=== PATIENT | male | born 1980 | race Caucasian/White ===

== ENCOUNTER 2020-05-11 10:01 | Emergency (ER) | payer OTHER, SELFPAY ==
--- NOTE | ~2020-05-11 | XR_ITS ---
EXAMINATION: XR LUMBAR SPINE XR SACRUM/COCCYX CLINICAL INFORMATION: Pain status post fall COMPARISON: CT 10/24/2016 TECHNIQUE: 3 views of the lumbar spine. 3 views of the sacrum/coccyx. FINDINGS: Lumbar spine: No fracture or subluxation. Vertebral body height and alignment is maintained. Disc spaces are maintained. Tiny endplate osteophytes at L3-L4. The bowel gas pattern is unremarkable. Sacrum/coccyx: No fracture or cortical disruption. Appropriate alignment of the sacrum and coccyx. The sacroiliac joints are symmetric. The sacral arcs are maintained. XR/XR sacrum coccyx min 2V IMPRESSION: No acute fracture or malalignment involving the lumbar spine or sacrum/coccyx.
--- NOTE | ~2020-05-11 | XR_ITS ---
EXAMINATION: XR LUMBAR SPINE XR SACRUM/COCCYX CLINICAL INFORMATION: Pain status post fall COMPARISON: CT 10/24/2016 TECHNIQUE: 3 views of the lumbar spine. 3 views of the sacrum/coccyx. FINDINGS: Lumbar spine: No fracture or subluxation. Vertebral body height and alignment is maintained. Disc spaces are maintained. Tiny endplate osteophytes at L3-L4. The bowel gas pattern is unremarkable. Sacrum/coccyx: No fracture or cortical disruption. Appropriate alignment of the sacrum and coccyx. The sacroiliac joints are symmetric. The sacral arcs are maintained. XR/XR lumbar spine 2-3V IMPRESSION: No acute fracture or malalignment involving the lumbar spine or sacrum/coccyx.
[2020-05-11 10:26] VITALS: BP 134/79; PULSE 57; RESP 18; TEMP 36.9; O2SAT 98; BMI 29.1
--- NOTE | 2020-05-11 12:23 | ED.FALL ---
HPI - Fall General Chief Complaint: Fall <LOU Alvarez Last Filed: 05/11/20 13:48> Stated Complaint: fall - abd pain,back pain, <LOU Alvarez Last Filed: 05/11/20 13:48> Time Seen by Provider: 05/11/20 11:44 <LOU Alvarez Last Filed: 05/11/20 13:48> Source: patient <LOU Alvarez Last Filed: 05/11/20 13:48> Mode of arrival: ambulatory <LOU Alvarez Last Filed: 05/11/20 13:48> Limitations: no limitations <LOU Alvarez Last Filed: 05/11/20 13:48> History of Present Illness HPI Narrative: 39 y/o male presenting with low back pain, tailbone pain and right buttock pain after he fell off a step ladder onto concrete yesterday. He fell from 4 steps up on his buttocks, and then back onto his elbows and he hit his head on the cement. He did no lose consciousness. He is on not on blood thinners. He was ambulatory at the scene. He was sore last night so he took so Motrin and a Vicoden from his girlfriend because he was having trouble sleeping. He went into work today but was continuing to have pain so he came to the ED for evaluation. He denies headaches, numbness, tingling. <LOU Alvarez Last Filed: 05/11/20 13:48> MD complaint: fall <LOU Alvarez Last Filed: 05/11/20 13:48> Onset (ago): day(s) (1) <LOU Alvarez Last Filed: 05/11/20 13:48> Fall from: from height (distance) (4) <LOU Alvarez Last Filed: 05/11/20 13:48> Fall witnessed: yes, by bystander <LOU Alvarez Last Filed: 05/11/20 13:48> Place fall occurred: work <LOU Alvarez Last Filed: 05/11/20 13:48> Loss of consciousness: none <LOU Alvarez Last Filed: 05/11/20 13:48> Prolonged down time: no <LOU Alvarez Last Filed: 05/11/20 13:48> Symptoms prior to fall: none <LOU Alvarez Last Filed: 05/11/20 13:48> Context: tripped/slipped <LOU Alvarez Last Filed: 05/11/20 13:48> Location of injury: head and back <LOU Alvarez Last Filed: 05/11/20 13:48> Location of injury - extremities: right: elbow <LOU Alvarez Last Filed: 05/11/20 13:48> Severity: moderate <LOU Alvarez Last Filed: 05/11/20 13:48> Quality: aching <LOU Alvarez Last Filed: 05/11/20 13:48> Associated symptoms (after fall): denies <LOU Alvarez Last Filed: 05/11/20 13:48> Related Data Home Medications: Previous Rx's Medication Instructions Recorded cyclobenzaprine 10 mg PO TID PRN #15 tab 05/11/20 ibuprofen 600 mg PO Q8H PRN #20 tab 05/11/20 lidocaine [Lidoderm] 1 patch TOPICAL DAILY #15 ea 05/11/20 <LOU Alvarez Last Filed: 05/11/20 13:48> Allergies/Adverse Reactions: Allergies Allergy/AdvReac Type Severity Reaction Status Date / Time acetaminophen [From TYLENOL] Allergy Unknown STOMACH Unverified 05/11/20 10:25 ISSUES ibuprofen [From MOTRIN] Allergy Unknown STOMACH Unverified 05/11/20 10:25 ISSUES <LOU Alvarez Last Filed: 05/11/20 13:48> Review of Systems Review of Systems: Constitutional: No Fever, No Chills Cardiovascular: No Chest Pain Gastrointestinal: No Nausea, No Vomiting, No Diarrhea, No abdominal Pain Genitourinary: No Hematuria Musculoskeletal: + joint pain, + Myalgias Skin: No Skin Lesions, No rash Neuro: No Weakness, No Numbness, No Dizziness, No Headache Psych: No Anxiety/Panic, No Depression Heme/Lymph: No Bruising <LOU Alvarez - Last Filed: 05/11/20 13:48> [facility] Past Medical History Attestation statement: The following information was validated with the patient. <LOU Alvarez - Last Filed: 05/11/20 13:48> Social History Social History: Social History Alcohol intake: never Smoking Status: Never smoker Use of substances other than those prescribed or required for medical reasons: Yes Substance Use Type: Marijuana Substance Use Frequency: Occasionally Last Used Substance: Unknown Advance Directives: No Advance Directives Information Provided: No <LOU Alvarez - Last Filed: 05/11/20 13:48> Physical Exam Vital Signs: Vital Signs: Last Vital Signs Temp 98.4 F 05/11/20 10:26 Pulse 57 05/11/20 10:26 Resp 18 05/11/20 10:26 BP 134/79 05/11/20 10:26 Pulse Ox 98 05/11/20 10:26 Body Mass Index 29.1 Appearance: Alert. Oriented X3. No acute distress. HEENT: normal inspection CVS: Normal heart rate and rhythm. Pulses normal. Respiratory: No respiratory distress. Skin: Skin warm and dry. Normal skin color. Normal skin turgor. No rashes. Back: sacral tenderness with lumbar spinal tenderness, right low lumbar soft tissue tenderness. no erythema, no ecchymosis. full flexion of spine with some pain. Extremities: atraumatic, no swelling. full ROM of bilateral elbows, no point tenderness. Neuro: Oriented X 3. No motor deficit. No sensory deficit. Ambulates with steady gait. <LOU Alvarez - Last Filed: 05/11/20 13:48> Vital Signs: Last Vital Signs Temp 98.4 F 05/11/20 10:26 Pulse 57 05/11/20 10:26 Resp 18 05/11/20 10:26 BP 134/79 05/11/20 10:26 Pulse Ox 98 05/11/20 10:26 Body Mass Index 29.1 <Tommie Mehta MD - Last Filed: 05/26/20 07:21> Course Course Course Narrative: 39 y/o male presenting with low back pain after a fall from a step ladder yesterday. Exam showing some soft tissue tenderness and sacral tenderness. No neuro deficits. Will get XR's to assess for fracutres. <LOU Alvarez - Last Filed: 05/11/20 13:48> I have reviewed the chart <Tommie Mehta MD - Last Filed: 05/26/20 07:21> Reevaluation(s) Reevaluation #1: XR's are negative. Will treat with soft tissue contusions and strain with NSAID, muscle relaxer and Lidoderm. Patient agrees with plan and is stable for discharge. <LOU Alvarez - Last Filed: 05/11/20 13:48> Critical Care Time Critical Care Time Critical Care Time: No <LOU Alvarez - Last Filed: 05/11/20 13:48> Discharge Plan Discharge Clinical Impression: Contusion, Low back strain <LOU Alvarez Last Filed: 05/11/20 13:48> Patient Disposition: Home, Self-Care <LOU Alvarez - Last Filed: 05/11/20 13:48> Instructions: Low Back Strain (ED), Acute Low Back Pain (ED), Lower Back Exercises (ED) <LOU Alvarez - Last Filed: 05/11/20 13:48> Additional Instructions: Your x-rays today are negative. Your pain is most likely due to soft tissue and muscular injury. No bending, lifting or twisting. Use ice several times per day for 20 minutes at a time for the next 48 hours and then change to heat. Take medications as prescribed to help with pain and discomfort. Follow up with your Primary Care Doctor this week. If your pain worsens, if you develop new numbness, tingling, weakness, loss of function or incontinence call 911 or come back to the ER right away for evaluation. <LOU Alvarez - Last Filed: 05/11/20 13:48> Prescriptions: New cyclobenzaprine 10 mg tablet 10 mg PO TID PRN (Reason: muscle spasm) Qty: 15 RF: 0 ibuprofen 600 mg tablet 600 mg PO Q8H PRN (Reason: pain) Qty: 20 RF: 0 lidocaine [Lidoderm] 5 % adhesive patch,medicated 1 patch topical DAILY Qty: 15 RF: 0 <LOU Alvarez - Last Filed: 05/11/20 13:48> Stand Alone Forms: Work/School Release <LOU Alvarez - Last Filed: 05/11/20 13:48> Interventions: ED Discharge Assessment Last Done: 05/11/20 14:03 <LOU Alvarez - Last Filed: 05/11/20 13:48> Discharge Date/Time: 05/11/20 14:04 <LOU Alvarez - Last Filed: 05/11/20 13:48>
[2020-05-11] MEDS: Lidocaine 4 % Patch ADH..PATCH 2 PATCH TRANSDERMA (12:31)
[2020-05-11] MEDS: HYDROcodone Bit/Acetam 5/325 TABLET 1 TAB PO (12:31)
== END 2020-05-11 14:04 | disposition home or self-care (01) ==
PROVIDERS: Emergency Provider Emergency Medicine
DX: S39.012A Strain of muscle, fascia and tendon of lower back, initial encounter (principal); S30.0XXA Contusion of lower back and pelvis, initial encounter; W11.XXXA Fall on and from ladder, initial encounter; F12.90 Cannabis use, unspecified, uncomplicated; Y93.9 Activity, unspecified; Y92.017 Garden or yard in single-family (private) house as the place of occurrence of the external cause; Y99.9 Unspecified external cause status
CPT/HCPCS: 72100; 72220; 99283; 99284

== ENCOUNTER 2021-01-10 12:20 | Emergency (ER) | payer OTHER, SELFPAY ==
--- NOTE | 2021-01-10 | ECG_ITS ---
Test Reason : bradycardic Blood Pressure : / mmHG Vent. Rate : 049 BPM Atrial Rate : 049 BPM P-R Int : 152 ms QRS Dur : 098 ms QT Int : 454 ms P-R-T Axes : 043 078 042 degrees QTc Int : 410 ms Sinus bradycardia Cannot rule out Anterior infarct , age undetermined Abnormal ECG No previous ECGs available Referred By: Jose Murphy Electronically Signed By:Eren Peralta
--- NOTE | ~2021-01-10 | CT_ITS ---
CT ANGIOGRAM NECK WITH CONTRAST CT ANGIOGRAM BRAIN WITH CONTRAST CLINICAL INFORMATION: Severe headache. Bradycardia. Hypertensive. COMPARISON: Head CT performed earlier the same day. TECHNIQUE: Test bolus sequences followed by intravenous administration 70 mL of Omnipaque 350. Helical imaging was performed in the axial plane from the thoracic inlet to the skull vertex. Delayed postcontrast imaging of the head was also performed. The data was processed at the ct scan technologist workstation for generation of MIP sequences. Stenoses are assessed in accordance with NASCET criteria unless otherwise indicated. This CT examination was performed using dose optimization techniques as appropriate, variously including the following: *Automated exposure control *Adjustment of mA and/or kV according to patient size (this includes techniques or standardized protocols for targeted exams where dose is matched to indication/reason for exam; i.e. extremities or head) *Use of iterative reconstruction technique FINDINGS: BRAIN: [There is no intracranial hemorrhage, hydrocephalus, extra-axial surface collection, midline shift, or other herniation pattern. Poole to white matter differentiation is diffusely maintained without evidence of an evolved acute territorial infarct. The basilar cisterns are preserved. No significant soft tissue abnormality. No acute osseous abnormality. The paranasal sinuses and the mastoid air cells are well aerated.] CERVICAL SOFT TISSUES AND LUNG APICES: [Unremarkable. ] NECK CTA: [There is a classic 3 vessel configuration of the aortic arch. Proximal arch vessels are non-stenotic. The vertebral arteries are codominant. No significant ostial stenosis is visualized on either side. Both vertebral arteries are widely patent throughout their extracranial cervical course. Both common and internal carotid arteries are normal in course and caliber.] BRAIN CTA: [There is normal opacification of major intracranial arteries. No focal flow-limiting stenosis nor discrete proximal large artery occlusion. No aneurysm. Timing of the contrast bolus allows assessment of the major dural venous sinuses, which all opacify normally] CT/CT angio head neck stroke IMPRESSION: No acute intracranial findings. No significant arterial stenoses and no acute arterial occlusions within the head or neck. Covering provider paged with these findings at 1:01 PM on 01/10/2021.
--- NOTE | ~2021-01-10 | CT_ITS ---
EXAMINATION: CT HEAD WITHOUT CONTRAST (STROKE PROTOCOL) CLINICAL INFORMATION: Stroke protocol. Severe headache and drowsy. COMPARISON: No prior studies available for comparison. TECHNIQUE: Contiguous axial imaging was performed from the skull base to vertex without intravenous administration of contrast. This CT examination was performed using dose optimization techniques as appropriate, variously including the following: *Automated exposure control *Adjustment of mA and/or kV according to patient size (this includes techniques or standardized protocols for targeted exams where dose is matched to indication/reason for exam; i.e. extremities or head) *Use of iterative reconstruction technique DLP: 760 mGy-cm FINDINGS: There is no evidence of acute intracranial hemorrhage or territorial infarction. No abnormal mass-effect or midline shift is seen. Po[place] to white matter differentiation is well preserved. No extra-axial fluid collections are identified. The ventricles are normal in size. There is no abnormal attenuation within the brain parenchyma. The osseous structures and soft tissues are normal. There is trace fluid at the left mastoid tip. There is mucoperiosteal thickening in the right maxillary and in the bilateral ethmoid and sphenoid sinuses. The nasal septum is significantly deviated to the left and there is a left-sided bony nasal septal spur. CT/CT head for stroke IMPRESSION: 1. There are no acute bleeds or infarcts. No masses are demonstrated. 2. This critical result was discussed with Jose Murphy by telephone on 01/10/2021 at 12:38 PM and it was ascertained that the content and urgency of the report was understood at the time of direct communication.
[2021-01-10 12:30] VITALS: BP 213/98; PULSE 35; O2SAT 97
--- NOTE | 2021-01-10 12:30 | ED_ITS ---
HPI - Headache General Chief Complaint: Headache Stated Complaint: CRUZ,LOW HR,HIGH BP PER EMS Time Seen by Provider: 01/10/21 12:25 Source: patient and EMS Mode of arrival: EMS History of Present Illness HPI Narrative: 40 yo presented via ALS c/o severe CRUZ after bowel movement,found bradycardic and hypertensive,denies fever,chills ,vomiting.has similar CRUZ 2 days ago speedy durbin MD elicited complaint: headache Onset (ago): hour(s) (1) Onset description: suddenly Severity: moderate Quality & Timing: aching and throbbing Exacerbating factors: none Relieving factors: nothing Context: other (during bowel movement) Related Data Previous Rx's Medication Instructions Recorded cyclobenzaprine 10 mg tablet 10 mg PO TID PRN #15 tab 05/11/20 ibuprofen 600 mg tablet 600 mg PO Q8H PRN #20 tab 05/11/20 lidocaine 5 % topical patch 1 patch TOPICAL DAILY #15 ea 05/11/20 (Lidoderm) oxycodone 5 mg capsule 5 mg PO Q8H PRN #12 cap 01/10/21 Allergies Allergy/AdvReac Type Severity Reaction Status Date / Time acetaminophen [From TYLENOL] Allergy Unknown STOMACH Unverified 05/11/20 10:25 ISSUES ibuprofen [From MOTRIN] Allergy Unknown STOMACH Unverified 05/11/20 10:25 ISSUES Review of Systems Review of Systems: Yes all other systems are reviewed and are negative ENT: Denies vertigo Cardiovascular: Cardiovascular: Reports no additional cardiovascular complaints Respiratory: Respiratory: Reports no additional respiratory complaints Gastrointestinal: Gastrointestinal: Reports no additional gastrointestinal complaints Musculoskeletal: Musculoskeletal: Denies abnormal gait Neurologic: Denies abnormal gait, Denies behavioral changes, Reports burning sensations, Denies confusion, Denies vertigo and Denies seizure-like activity Psychiatric: Psychiatric: Denies behavioral changes and Denies confusion PMFSH Social History Social History Alcohol intake: never Smoked in Last 30 Days: No Use of substances other than those prescribed or required for medical reasons: Yes Substance Use Type: Marijuana Advance Directives: No Advance Directives Information Provided: Yes Physical Exam Vital Signs: Vital Signs: Last Vital Signs Temp 98.6 F 01/10/21 15:45 Pulse 55 01/10/21 15:45 Resp 18 01/10/21 15:45 BP 105/53 L 01/10/21 15:45 Pulse Ox 96 01/10/21 15:45 BMI result Body Mass Index 29.9 Const: General: cooperative and anxious; No confusion Orientat ion/consciousness: oriented to person, oriented to place, oriented to time and No confusion HENMT: Head: Yes normal to inspection Face and sinus: Yes normal facial exam Neck: Neck: Yes normal visual inspection, Yes full ROM and Yes no meningeal signs Chest: Chest palpation & inspection: normal inspection of the chest Resp: Effort & Inspection: normal respiratory effort Auscultation: clear to auscultation bilaterally Cardio: Jugular venous distension: no JVD Rate: regular rate Rhythm: regular rhythm GI: Inspection: Yes normal to inspection Palpation (GI): Soft to palpation, nontender and no guarding Skin: General skin exam: no rashes or lesions noted and elasticity normal Rashes: no rashes Neuro: General: oriented to person, oriented to place, oriented to time, no meningeal signs, no focal motor deficits, CN's II-XI intact bilaterally and No confusion Course Reevaluation(s) Reevaluation #1: Pt feels much better at this time,CRUZ gone, ct angio head and neck negative, WBC normal Reevaluation #2: feel much better sitting up asyntomatic,no CRUZ,wants to go home MDM - Headache Lab Data Attestation: I reviewed the patient's lab results. Result diagrams: 01/10/21 13:01 01/10/21 13:24 Labs: Lab Results 01/10/21 01/10/21 01/10/21 Range/Units 13:01 13:01 13:24 WBC 8.7 (4.8-10.8) X10*3/uL RBC 5.15 (4.60-5.80) X10*6/uL Hgb 15.6 (14.0-18.0) g/dl Hct 44.8 (42.0-52.0) % MCV 87.0 (80.0-98.0) fL MCH 30.3 (27.0-33.0) pg MCHC 34.8 (31.0-36.0) g/dl RDW 13.7 (11.0-16.0) % Plt Count 211 (160-400) X10*3/uL MPV 10.9 (9.4-12.4) fL Immature Gran % (Auto) 0.2 (0.0-0.4) % Neut % (Auto) 75.9 H (45-73) % Lymph % (Auto) 16.2 L (20-40) % [place] % (Auto) 5.6 (2-11) % Eos % (Auto) 1.6 (0-4) % Baso % (Auto) 0.5 (0-2) % Lymph # (Auto) 1.4 (1.2-4.9) X10*3/uL [place] # (Auto) 0.5 (0.1-1.2) X10*3/uL Eos # (Auto) 0.1 (0.0-0.4) X10*3/uL Baso # (Auto) 0.0 (0.0-0.2) X10*3/uL Abs Immat Gran (auto) 0.02 (0.00-0.03) X10*3/uL Absolute Neuts (auto) 6.6 (2.0-8.3) x10*3/uL Absolute Nucleated RBC 0.000 (0.0-0.012) X10*3/uL Nucleated RBC % (auto) 0.0 (0.0-0.2) /100WBC PT (9.9-13.0) SEC INR (0.9-1.1) APTT (24.1-38.0) SEC Sodium 141 (135-145) mmol/L Potassium 4.1 (3.3-5.1) mmol/L Chloride 110 H (96-108) mmol/L Carbon Dioxide 22 (22-29) mmol/L Anion Gap 13 (12-20) BUN 18 H (9-16) mg/dL Creatinine 0.90 (0.5-1.4) mg/dL Estim Creat Clear Calc 136.1 Estimated GFR > 60 Random Glucose 140 H (60-115) mg/dL Calcium 9.0 (8.4-10.2) mg/dL Total Bilirubin 0.5 (0.0-1.0) mg/dL AST 21 (5-37) U/L ALT 42 H (0-40) U/L Alkaline Phosphatase 60 (39-117) U/L Total Protein 6.4 L (6.5-8.0) g/dL Albumin 4.2 (3.5-5.0) g/dL COVID-19 ([facility]) Negative (Negative) COVID-19 Clin Com See Note 01/10/21 Range/Units 14:11 WBC (4.8-10.8) X10*3/uL RBC (4.60-5.80) X10*6/uL Hgb (14.0-18.0) g/dl Hct (42.0-52.0) % MCV (80.0-98.0) fL MCH (27.0-33.0) pg MCHC (31.0-36.0) g/dl RDW (11.0-16.0) % Plt Count (160-400) X10*3/uL MPV (9.4-12.4) fL Immature Gran % (Auto) (0.0-0.4) % Neut % (Auto) (45-73) % Lymph % (Auto) (20-40) % [place] % (Auto) (2-11) % Eos % (Auto) (0-4) % Baso % (Auto) (0-2) % Lymph # (Auto) (1.2-4.9) X10*3/uL [place] # (Auto) (0.1-1.2) X10*3/uL Eos # (Auto) (0.0-0.4) X10*3/uL Baso # (Auto) (0.0-0.2) X10*3/uL Abs Immat Gran (auto) (0.00-0.03) X10*3/uL Absolute Neuts (auto) (2.0-8.3) x10*3/uL Absolute Nucleated RBC (0.0-0.012) X10*3/uL Nucleated RBC % (auto) (0.0-0.2) /100WBC PT 11.1 (9.9-13.0) SEC INR 1.0 (0.9-1.1) APTT 38.9 H (24.1-38.0) SEC Sodium (135-145) mmol/L Potassium (3.3-5.1) mmol/L Chloride (96-108) mmol/L Carbon Dioxide (22-29) mmol/L Anion Gap (12-20) BUN (9-16) mg/dL Creatinine (0.5-1.4) mg/dL Estim Creat Clear Calc Estimated GFR Random Glucose (60-115) mg/dL Calcium (8.4-10.2) mg/dL Total Bilirubin (0.0-1.0) mg/dL AST (5-37) U/L ALT (0-40) U/L Alkaline Phosphatase (39-117) U/L Total Protein (6.5-8.0) g/dL Albumin (3.5-5.0) g/dL COVID-19 ([facility]) (Negative) COVID-19 Clin Com Imaging Data ct ang head/neck: Radiologist's impression: [There is no intracranial hemorrhage, hydrocephalus, extra-axial surface collection, midline shift, or other herniation pattern. Poole to white matter differentiation is diffusely maintained without evidence of an evolved acute territorial infarct. The basilar cisterns are preserved. No significant soft tissue abnormality. No acute osseous abnormality. The paranasal sinuses and the mastoid air cells are well aerated.] CERVICAL SOFT TISSUES AND LUNG APICES: [Unremarkable. ] NECK CTA: [There is a classic 3 vessel configuration of the aortic arch. Proximal arch vessels are non-stenotic. The vertebral arteries are codominant. No significant ostial stenosis is visualized on either side. Both vertebral arteries are widely patent throughout their extracranial cervical course. Both common and internal carotid arteries are normal in course and caliber.] BRAIN CTA: [There is normal opacification of major intracranial arteries. No focal flow-limiting stenosis nor discrete proximal large artery occlusion. No aneurysm. Timing of the contrast bolus allows assessment of the major dural venous sinuses, which all opacify normally] CT/CT angio head? neck stroke IMPRESSION: No acute intracranial findings. No significant arterial stenoses and no acute arterial occlusions within the head or neck. ? Covering provider paged with these findings at 1:01 PM on 01/10/2021. Discharge Plan Discharge Clinical Impression: Headache Patient Disposition: Home, Self-Care Instructions: Acute Headache (ED) Additional Instructions: Follow up with Primary Care Doctor Tomorrow also call neurologist for follow up [phone] Prescriptions: New oxycodone 5 mg capsule 5 mg PO Q8H PRN (Reason: pain) Qty: 12 RF: 0 No Action cyclobenzaprine 10 mg tablet 10 mg PO TID PRN (Reason: muscle spasm) Qty: 15 RF: 0 ibuprofen 600 mg tablet 600 mg PO Q8H PRN (Reason: pain) Qty: 20 RF: 0 lidocaine [Lidoderm] 5 % adhesive patch,medicated 1 patch topical DAILY Qty: 15 RF: 0 Referrals: Jessica Wright MD [Physician] - 2 days Stand Alone Forms: Work/School Release
[2021-01-10] MEDS: iohexoL 350 MG/ML 100 ML INFUS..BTL IV (12:46)
[2021-01-10 12:53] VITALS: BP 169/59; PULSE 45; RESP 18; TEMP 36.9; O2SAT 98; BMI 29.9
[2021-01-10] MEDS: HYDROmorphone HCl 0.5 MG/0.5 ML SYRINGE IVPUSH (12:59)
[2021-01-10 13:08] LABS: MANUAL DIFF FLAG NO
[2021-01-10 13:11] LABS: Basophils Percent Auto 0.5 % (0-2); Eosinophils Absolute Auto 0.1 X10*3/uL (0.0-0.4); Eosinophils Percent Auto 1.6 % (0-4); Hematocrit 44.8 % (42.0-52.0); Hemoglobin 15.6 g/dl (14.0-18.0); Imm Gran Abs Auto 0.02 X10*3/uL (0.00-0.03); Imm Gran Pct Auto 0.2 % (0.0-0.4); Lymphocytes Absolute Auto 1.4 X10*3/uL (1.2-4.9); Lymphocytes Percent Auto 16.2 % (20-40); Mean Corpuscular HGB Conc 34.8 g/dl (31.0-36.0); Mean Corpuscular Hemoglobin 30.3 pg (27.0-33.0); Mean Platelet Volume 10.9 fL (9.4-12.4); Monocytes Absolute Auto 0.5 X10*3/uL (0.1-1.2); Monocytes Percent Auto 5.6 % (2-11); Neutrophils Absolute Auto 6.6 x10*3/uL (2.0-8.3); Neutrophils Percent Auto 75.9 % (45-73); Platelet Count 211 X10*3/uL (160-400); Red Blood Count 5.15 X10*6/uL (4.60-5.80); Red Cell Distribution Width 13.7 % (11.0-16.0); White Blood Count 8.7 X10*3/uL (4.8-10.8)
[2021-01-10 13:24] LABS: COVID-19 Test Negative (Negative)
[2021-01-10 13:46] LABS: Alanine Aminotransferase 42 U/L (0-40); Albumin Level 4.2 g/dL (3.5-5.0); Alkaline Phosphatase 60 U/L (39-117); Anion Gap 13 (12-20); Aspartate Amino Transferase 21 U/L (5-37); Bilirubin Total 0.5 mg/dL (0.0-1.0); Blood Urea Nitrogen 18 mg/dL (9-16); Carbon Dioxide 22 mmol/L (22-29); Chloride 110 mmol/L (96-108); Creatinine Clr Calc Pharmacy 136.1; Estimated Glomerular Filt Rate > 60; Glucose Random 140 mg/dL (60-115); Potassium 4.1 mmol/L (3.3-5.1); Sodium 141 mmol/L (135-145); Total Protein 6.4 g/dL (6.5-8.0)
[2021-01-10] MEDS: Ketorolac Tromethamine 15 MG/ML VIAL IVPUSH (13:46)
[2021-01-10] MEDS: Metoclopramide HCl 10 MG/2 ML VIAL IVPUSH (13:47)
[2021-01-10] MEDS: diphenhydrAMINE HCL 50 MG/ML VIAL 25 MG IVPUSH (13:48)
[2021-01-10 14:09] VITALS: BP 159/76; PULSE 47; RESP 18; TEMP 36.6; O2SAT 97
[2021-01-10 14:27] LABS: Prothrombin Time 11.1 SEC (9.9-13.0)
[2021-01-10 14:30] LABS: Partial Thromboplastin Time 38.9 SEC (24.1-38.0)
[2021-01-10 15:45] VITALS: BP 105/53; PULSE 55; RESP 18; TEMP 37; O2SAT 96
== END 2021-01-10 16:31 | disposition home or self-care (01) ==
PROVIDERS: Emergency Provider Emergency Medicine
DX: R51.9 Headache, unspecified (principal); Z20.822 Contact with and (suspected) exposure to COVID-19
CPT/HCPCS: 36415; 70450; 70496; 70498; 80053; 85025; 85610; 85730; 87635; 93005; 96374; 96375; 99285; J1170; J1200; J1885; J2765; Q9967

== ENCOUNTER 2022-02-24 07:43 | Emergency (ER) | payer OTHER, SELFPAY ==
[2022-02-24 07:56] VITALS: BP 144/89; PULSE 64; RESP 16; TEMP 36.1; O2SAT 97; BMI 29.0
--- NOTE | 2022-02-24 08:17 | ED_ITS ---
HPI - Skin/Abscess/Foreign Bdy General Chief complaint: Skin/Abscess/Foreign Body Stated complaint: rash from dog Time Seen by Provider: 02/24/22 08:17 Source: patient Mode of arrival: ambulatory Limitations: no limitations History of Present Illness HPI narrative: 41-year-old male presents to the ER for evaluation of an itchy, red, raised rash on his extremities that started yesterday. He has a new puppy that was diagnosed with main Gen started on treatment yesterday. His was also seen in the ER yesterday for a similar rash. He reports the rash is itchy and burning. No burrowing. No surrounding erythema or warmth. No drainage. No facial swelling or respiratory complaints. No new lotions, creams, perfumes. complaint: rash Onset (ago): day(s) (1) Tetanus up to date: unsure Location: LUE, RUE, LLE and RLE Severity: moderate Quality: pruritic Pain Consistency: constant Relieving factors: other ( Benadryl cream) Exacerbating factors: none Context: other ( new puppy with mange) Associated symptoms: denies other symptoms Treatments prior to arrival: OTC topical medication Related Data Previous Rx's Medication Instructions Recorded cyclobenzaprine 10 mg tablet 10 mg PO TID PRN muscle spasm #15 05/11/20 tabs ibuprofen 600 mg tablet 600 mg PO Q8H PRN pain #20 tabs 05/11/20 lidocaine 5 % topical patch 1 patch topical DAILY #15 ea 05/11/20 (Lidoderm) oxycodone 5 mg capsule 5 mg PO Q8H PRN pain #12 caps 01/10/21 permethrin 5 % topical cream 1 appl topical Q14D 2 doses #60 02/24/22 (Elimite) grams prednisone 20 mg tablet 40 mg PO DAILY #10 tabs 02/24/22 Allergies Allergy/AdvReac Type Severity Reaction Status Date / Time acetaminophen [From TYLENOL] Allergy Unknown STOMACH Unverified 05/11/20 10:25 ISSUES ibuprofen [From MOTRIN] Allergy Unknown STOMACH Unverified 05/11/20 10:25 ISSUES Review of Systems Review of Systems: Yes all other systems are reviewed and are negative PMFSH Social History Social History Alcohol intake: never Smoked in Last 30 Days: No Use of substances other than those prescribed or required for medical reasons: Yes Substance Use Type: Marijuana Advance Directives: No Physical Exam Vital Signs: Vital Signs: Last Vital Signs Temp 96.9 F 02/24/22 07:56 Pulse 68 02/24/22 08:40 Resp 16 02/24/22 08:40 BP 117/77 02/24/22 08:40 Pulse Ox 96 02/24/22 08:40 O2 Del Method 02/24/22 08:40 BMI result Body Mass Index 29.0 Appearance: Alert. Oriented X3. No acute distress. HEENT: normal inspection. facial swelling CVS: Normal heart rate and rhythm. Pulses normal. Respiratory: No respiratory distress. Lungs are clear throughout Skin: Skin warm and dry. Normal skin color. Normal skin turgor. Extremities: there is a scattered, erythematous, maculopapular rash with excoriations on all 4 extremities, scattered throughout. No pustules or bulla. No surrounding erythema or warmth. Neuro: Oriented X 3. No motor deficit. No sensory deficit. Course Course Course Narrative: 41-year-old male presents to the ER for evaluation of an itchy, red, pruritic rash that started last night after having a new puppy at home with mange. This can be transmitted will to humans. Treated with permethrin. got similar treatment yesterday. All in and have been washed in hot water. Dog has been isolated to 1 room in the home and started on treatment from the instructor ground services. . Will start permethrin, Benadryl, prednisone given itchiness and distribution. We also discussed xhie-jwm-[id number] remedies that may help with itching as well. He will follow-up with his PCP. Stable for discharge home. Medical Decision Making Differential Diagnosis Differential Diagnoses: The differential diagnosis associated with the presentation includes scabies, mange, allergic dermatitis, contact dermatitis Independent Historian Clinical information obtained from an independent historian. History obtained from or confirmed by: Spouse External Record Review External record reviewed: Outpatient record and Prior outpatient labs Prescription Management I considered prescription management with: Antibiotic not indicated No evidence of bacterial infection Critical Care Time Critical Care Time Critical Care Time: No Discharge Plan Discharge Clinical Impression: Sarcoptic mange Patient Disposition: Home, Self-Care Instructions: Scabies (ED) Additional Instructions: Use the prescribed cream tonight before bed, leave on for 8-12 hours for washing off. Start the prescribed steroids today. Recommend Benadryl either topically or orally as needed for itching and rash. Follow-up with your doctor. Prescriptions: New permethrin [Elimite] 5 % cream 1 appl topical Q14D Qty: 60 0RF Rx Instructions: apply second treatment 14 days after first treatment if live lice remain prednisone 20 mg tablet 40 mg PO DAILY Qty: 10 0RF No Action cyclobenzaprine 10 mg tablet 10 mg PO TID PRN (Reason: muscle spasm) Qty: 15 0RF ibuprofen 600 mg tablet 600 mg PO Q8H PRN (Reason: pain) Qty: 20 0RF lidocaine [Lidoderm] 5 % adhesive patch,medicated 1 patch topical DAILY Qty: 15 0RF Rx Instructions: leave on most painful area for up to 12 hrs oxycodone 5 mg capsule 5 mg PO Q8H PRN (Reason: pain) Qty: 12 0RF Stand Alone Forms: Work/School Release Interventions: ED Discharge Assessment Last Done: 02/24/22 08:45 Discharge Date/Time: 02/24/22 08:45
--- NOTE | 2022-02-24 08:18 | PC.NURSE ---
pt reports getting a new puppy x2 wks ago. his was seen here yesterday for full body rash, this morning he notice a similar rash to ble and r forearm. denies urrutia/fever/chills. no other members of his household with rash.
[2022-02-24 08:40] VITALS: BP 117/77; PULSE 68; RESP 16; O2SAT 96
== END 2022-02-24 08:45 | disposition home or self-care (01) ==
PROVIDERS: Emergency Provider Emergency Medicine Emergency Medical Services
DX: B86 Scabies (principal); Z79.899 Other long term (current) drug therapy
CPT/HCPCS: 99283; 99284

== ENCOUNTER 2022-04-06 08:09 | Emergency (ER) | payer OTHER, SELFPAY ==
[2022-04-06 08:13] VITALS: BP 147/81; PULSE 70; RESP 16; TEMP 35.8; O2SAT 97; BMI 29.9
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
== END 2022-04-06 09:35 | disposition home or self-care (01) ==
PROVIDERS: Emergency Provider Emergency Medicine
DX: S80.02XA Contusion of left knee, initial encounter (principal); V43.52XA Car driver injured in collision with other type car in traffic accident, initial encounter; Y93.89 Activity, other specified; Y92.414 Local residential or business street as the place of occurrence of the external cause; Y99.9 Unspecified external cause status
CPT/HCPCS: 99282

== ENCOUNTER 2023-08-23 09:59 | Outpatient (REF) | payer OTHER, SELFPAY ==
--- NOTE | ~2023-08-23 | XR_ITS ---
EXAMINATION: XR ANKLE, LEFT CLINICAL INFORMATION: Pain in left ankle COMPARISON: None available. TECHNIQUE: AP, lateral, and mortise views of the left ankle. FINDINGS: No fracture. Alignment is anatomic. No erosions. Joint spaces are maintained. Soft tissues are normal. XR/XR ankle LT min 3V IMPRESSION: Normal left ankle.
== END 2023-08-23 10:00 | disposition home or self-care (01) ==
LOC: HO.HOSX 09:59
PROVIDERS: Visit Provider Physician Assistant
DX: M25.572 Pain in left ankle and joints of left foot (principal)
CPT/HCPCS: 73610

== ENCOUNTER 2023-08-23 14:45 | Outpatient (AMB) | payer OTHER, SELFPAY ==
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
[2023-08-23 15:08] VITALS: BMI 31.0
== END 2023-08-23 16:18 | disposition home or self-care (01) ==
PROVIDERS: Visit Provider Physician Assistant
DX: S93.402A Sprain of unspecified ligament of left ankle, initial encounter (principal); M19.072 Primary osteoarthritis, left ankle and foot
CPT/HCPCS: 99204

== ENCOUNTER 2023-11-21 19:12 | Outpatient (REF) | payer OTHER, SELFPAY ==
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
== END 2023-11-21 19:13 | disposition home or self-care (01) ==
LOC: HO.MRI 19:12
PROVIDERS: PCP Internal Medicine; Visit Provider Physician Assistant
DX: M19.072 Primary osteoarthritis, left ankle and foot (principal); S93.402A Sprain of unspecified ligament of left ankle, initial encounter
CPT/HCPCS: 73721

== ENCOUNTER 2024-01-01 12:08 | Outpatient (AMB) | payer OTHER, SELFPAY ==
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
--- OUTSIDE RECORDS SUMMARY | 2024-01-01 12:10 | XMS_ITS | Continuity of Care Document ---
Author Organization [facility] Address [address] [place] [address]- Care Team Providers Care Travel Accommodations Rater Name Role Phone Rob ACOSTA, Nahid Castanon Primary Care Physician Encounter [facility] Date(s): 03/20/23 - 04/19/[address] [address] Allergies, Adverse Reactions, Alerts Substance Reaction Severity Status aspirin 1 Active Tylenol 2 Constipation Active 1bothers his stomach 2bothers his stomach Immunizations Given and Recorded Vaccine Date Status Refusal Reason influenza virus vaccine, inactivated 12/02/19 Give n influenza virus vaccine, inactivated 02/11/19 Give n influenza virus vaccine, inactivated 11/23/15 Give n influenza virus vaccine, inactivated 03/03/14 Give n tetanus/diphtheria/pertussis, acel(Tdap) 08/21/18 Given tetanus-diphtheria toxoids (Td) 10/21/16 Recorded Medications 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 Refills 0, Maintenance, wear daily as needed to avoid pressure to ulnar nerve, 06/27/22 10:40:00 EDT, Supply Start Date: 06/27/22 Status: Ordered bilateral neutral position wrist splints bilateral neutral position wrist splints, See Instructions, # 1 each, Refills 0, Tot. Refills 0, Maintenance, wear daily at night, 06/27/22 10:38:00 EDT, Supply, 183, cm, 06/27/22 10:11:00 EDT, Height Start Date: 06/27/22 Status: Ordered cloNIDine 0.1 mg oral tablet 1, tablet, By Mouth, 4 times a day, # 120 tablet, Refills 0, Maintenance, 02/19/23 14:33:00 EST, Route to Pharmacy Electronically, [id number], 183, cm, 01/23/23 10:48:00 EST, Height, 103.4, kg, 12/19/22 11:22:00 EST, Dry Weight Start Date: 02/19/23 Status: Ordered clotrimazole 1% topical cream 1 application, Topically, 2 times a day, # 60 Gm, 0 Refills, Maintenance, 05/18/20 8:31:00 EDT, Cream, [facility]/pharmacy #[id number], 1 application Topically 2 times a day, 183, cm, 12/02/19 9:13:00 EDT, Height Start Date: 05/18/20 Status: Ordered diclofenac 1% topical gel 1 application, Topically, 4 times a day, PRN for pain, # 100 Gm, 2 Refills, Maintenance, 02/17/22 18:10:00 EST, Gel, [facility]/pharmacy #[id number], 183, cm, 02/01/21 10:10:00 EST, Height Start Date: 02/17/22 Stop Date: 05/18/22 Status: Ordered fluticasone 50 mcg/inh nasal spray See Instructions, USE 1 SPRAY IN EACH NOSTRIL TWICE A DAY, # 48 mL, 1 Refills, Maintenance, 01/24/23 8:14:00 EST, [id number], 90, USE 1 SPRAY IN EACH NOSTRIL TWICE A DAY, 183, cm, 01/23/23 10:48:00 EST, Height, 103.4, kg, 12/19/22 11:22:00 EST, D... Start Date: 01/24/23 Status: Ordered Freestyle Lite Lancets See Instructions, # 100 each, Refills 5, Tot. Refills 5, Maintenance, For Type 2 Diabetes, check fasting sugars daily, 03/31/14 10:03:28, Compound Start Date: 03/31/14 Stop Date: 09/27/14 Status: Ordered Freestyle Lite Monitor See Instructions, # 1 each, Maintenance, use as directed for Type 2 Diabetes Mellitus, 03/31/14 10:03:21, Compound Start Date: 03/31/14 Stop Date: 04/30/14 Status: Ordered Freestyle Lite Test Strips See Instructions, # 100 each, Refills 5, Tot. Refills 5, Maintenance, for T2 Diabetes, check fasting sugars daily, 04/17/23 17:56:00 EDT, Compound, 183, cm, 01/23/23 10:48:00 EST, Height, 103.4, kg, 12/19/22 11:22:00 EST, Dry Weight Start Date: 04/17/23 Stop Date: 10/14/23 Status: Ordered gabapentin 300 mg oral capsule 600 mg, 2, capsule, By Mouth, 3 times a day, # 180 capsule, Refills 5, Tot. Refills 5, Maintenance,04/07/23 10:10:00 EST, Route to Pharmacy Electronically, [facility]/pharmacy #[id number], Partial fill upon patient request if the prescription is for a schedule II... Start Date: 04/07/23 Stop Date: 10/04/23 Status: Ordered ibuprofen 800 mg oral tablet 800 mg, 1, tablet, By Mouth, 3 times a day, PRN, # 270 tablet, Refills 1, Tot. Refills 1, Maintenance, Pain , Moderate, 12/19/22 11:49:00 EST, Route to Pharmacy Electronically, [facility]/pharmacy #[id number], Partial fill upon patient request if the prescription... Start Date: 12/19/22 Status: Ordered montelukast 10 mg oral tablet 10 mg, 1, tablet, By Mouth, Daily, # 30 tablet, Refills 3, Tot. Refills 3, Maintenance, 06/27/22 10:37:00 EDT, Route to Pharmacy Electronically, [facility]/pharmacy #[id number], Partial fill upon patient request if the prescription is for a schedule II opioid drug... Start Date: 06/27/22 Status: Ordered Neutral position wrist splints, medium, bilateral Neutral position wrist splints, medium, bilateral, See Instructions, # 1 each, Refills 0, Tot. Refills 0, Maintenance, Wear overnight daily, 03/09/20 16:02:00 EST, Supply Start Date: 03/09/20 Status: Ordered rOPINIRole 0.25 mg oral tablet 1 tablet, By Mouth, 3 times a day, # 90 tablet, 0 Refills, Maintenance, 02/19/23 14:33:00 EST, [id number], 183, cm, 01/23/23 10:48:00 EST, Height, 103.4, kg, 12/19/22 11:22:00 EST, Dry Weight Start Date: 02/19/23 Status: Ordered Splint See Instructions, # 1 each, Maintenance, soft left wrist splint for Dx: wrist tendonitis, 12/01/14 8:41:15, Compound Start Date: 12/01/14 Status: Ordered Suboxone 8 mg-2 mg sublingual film 1 film, Sublingual, 2 times a day, dissolve under the tongue, # 14 film, 0 Refills, Maintenance, 04/17/23 17:54:00 EDT, Film, [facility]/pharmacy #[id number], Partial fill upon patient request if the prescriptionis for a schedule II opioid drug., 1 film Sublingua... Start Date: 04/17/23 Stop Date: 04/24/23 Status: Ordered SUMAtriptan 25 mg oral tablet See Instructions, TAKE 1 TABLET BY MOUTH ONCE AT ONSET OF HEADACHE. MAY REPEAT IN 2 HOURS, # 12 tablet, 1 Refills, Maintenance, 02/17/22 18:10:00 EST, [facility]/pharmacy #[id number], 183, cm, 02/01/21 10:10:00 EST, Height Start Date: 02/17/22 Status: Ordered traZODone 50 mg oral tablet 1, tablet, By Mouth, Daily at bedtime, # 30 tablet, Refills 0, Maintenance, 02/19/23 14:33:00 EST, Route to Pharmacy Electronically, [id number], 183, cm, 01/23/23 10:48:00 EST, Height, 103.4, kg, 12/19/22 11:22:00 EST, Dry Weight Start Date: 02/19/23 Status: Ordered Ventolin HFA 108 mcg/inh inhalation aerosol with adapter 1 puffs, Inhalation, 4 times a day, PRN NEEDED FOR WHEEZE, # 18 each, 1 Refills, Maintenance, 04/17/23 17:53:00 EDT, [id number], 183, cm, 01/23/23 10:48:00 EST, Height, 103.4, kg, 12/19/22 11:22:00 EST, Dry Weight Start Date: 04/17/23 Status: Ordered Wellbutrin XL 150 mg/24 hours oral tablet, extended release 1 tablet = 150 mg, By Mouth, Every 24 hours, # 30 tablet, 1 Refills, Maintenance, 12/05/22 12:03:00EDT, ER Tablet, [facility]/pharmacy #[id number], Partial fill upon patient request if the prescription is for a schedule II opioid drug., 183, cm, 12/05/22 11:16:00... Start Date: 12/05/22 Status: Ordered Problem List Condition Confirmation Course Effective Dates Status Health St atus Informant Back pain Confirmed Active Carpal tunnel syndrome, bilateral Confirmed Active Somnolence Confirmed Active Limitation due to disability 1 Confirmed Active Migraine Confirmed Active Obesity Confirmed Active Opioid use disorder Confirmed Active Severe major depression, single episode, without psychotic features Confirmed Active Type 2 diabetes mellitus Confirmed Active Vitamin D deficiency Confirmed Active 1initial [place] Back Pain Scale: 22 on 05/21/14; initial [place]: 16 pm 05/21/14 Social History Social History Type Response Smoking Status Former smoker; Tobac co user in household: No entered on: 03/31/14 Sex Patient Care team information Care Team Personnel Name: Rob ACOSTA, Nahid Castanon Position: [facility] Physician - Primary Care Member Role: PCP Address: Address: [address] [place] [id number]- Care Team Related Persons Name: SADI GILBERT Address: [address] [address]
--- OUTSIDE RECORDS SUMMARY | 2024-01-01 12:10 | XMS_ITS | Continuity of Care Document ---
Author Organization [facility] Address [address] [place] [address]- Care Team Providers Care High School Business Teacher Name Role Phone Nahid Rivas MD Primary Care Physician [place] [facility] [place] 11/07[place] - 12/07/[address] [address]- Allergies, Adverse Reactions, Alerts Substance Reaction Severity [...] EDT, Height Start Date: 06/27/22 Status: Ordered clotrimazole 1% topical cream 1 application, Topically, 2 times a day, # 60 Gm, 0 Refills, Maintenance, 05/18/20 8:31:00 EDT, Cream, [facility]/pharmacy #[id number], 1 application Topically 2 times a day, 183, cm, 12/02/19 9:13:00 EDT, Height Start Date: 05/18/20 Status: Ordered diclofenac 1% topical gel 1 application, Topically, 4 times a day, PRN for pain, # 100 Gm, 2 Refills, Maintenance, 02/17/22 18:10:00 EST, Gel, [facility]/pharmacy #[id number], 183, cm, 02/01/21 10:10:00 EST, Height Start Date: 02/17/22 Stop Date: 05/18/22 Status: Ordered Flonase 50 mcg/inh nasal spray 1 sprays, Nares, Both, 2 times a day, # 16 Gm, 5 Refills, Maintenance, 02/17/22 18:10:00 EST, [place], [facility]/pharmacy #[id number], Partial fill upon patient request if the prescription is for a schedule II opioid drug., 1 sprays Nares, Both 2 times a day, 183,... Start Date: 02/17/22 Status: Ordered Freestyle Lite Lancets See Instructions, [...] for T2 Diabetes, check fasting sugars daily, 03/31/14 10:03:15, Compound Start Date: 03/31/14 Stop Date: 09/27/14 Status: Ordered ibuprofen 800 mg oral tablet 800 mg, 1, tablet, By Mouth, 3 times a day, PRN, # 270 tablet, Refills 1, Tot. Refills 1, Maintenance, Pain , Moderate, 10/01/21 8:32:00 EDT, Route to Pharmacy Electronically, [facility]/pharmacy #[id number], Partial fill upon patient request if the prescription i... Start Date: 10/01/21 Status: Ordered montelukast 10 mg oral tablet 10 mg, 1, tablet, By Mouth, Daily, # 30 tablet, Refills 3, Tot. Refills 3, Maintenance, 06/27/22 10:37:00 EDT, Route to Pharmacy Electronically, [facility]/pharmacy #[id number], Partial fill upon patient request if the prescription is for a schedule II opioid drug... Start Date: 06/27/22 Status: Ordered Neutral position wrist splints, medium, bilateral Neutral position wrist splints, medium, bilateral, See Instructions, # 1 each, Refills 0, Tot. Refills 0, Maintenance, Wear overnight daily, 03/09/20 16:02:00 EST, Supply Start Date: 03/09/20 Status: Ordered ondansetron 4 mg oral tablet 1 tablet = 4 mg, By Mouth, Every 8 hours, for 3 days, # 9 tablet, 0 Refills, Acute 12/08/22 12:04:00 EDT, 12/05/22 12:04:00 EDT, Tablet, [facility]/pharmacy #207, Partial fill upon patient request if the prescription is for a schedule II opioid drug., 183,... Start Date: 12/05/22 Stop Date: 12/08/22 Status: Ordered Splint See Instructions, # 1 each, Maintenance, soft left wrist splint for Dx: wrist tendonitis, 12/01/14 8:41:15, Compound Start Date: 12/01/14 Status: Ordered SUMAtriptan 25 mg oral tablet See Instructions, TAKE 1 TABLET BY MOUTH ONCE AT ONSET OF HEADACHE. MAY REPEAT IN 2 HOURS, # 12 tablet, 1 Refills, Maintenance, 02/17/22 18:10:00 EST, [facility]/pharmacy #[id number], 183, cm, 02/01/21 10:10:00 EST, Height Start Date: 02/17/22 Status: Ordered tramadol 200 mg oral tablet, extended release See Instructions, 1-2 tablet By Mouth Daily, use 2nd tablet sparingly, # 45 tablet, 5 Refills, Maintenance, 07/12/22 12:59:00 EDT, ER Tablet, [facility]/pharmacy #[id number], Partial fill upon patient request if the prescription is for a schedule II opioid drug.,... Start Date: 07/12/22 Status: Ordered Wellbutrin XL 150 mg/24 hours oral tablet, extended release 1 tablet = 150 mg, By Mouth, Every 24 hours, # 30 tablet, 1 Refills, Maintenance, 12/05/22 12:03:00EDT, ER Tablet, [facility]/pharmacy #[id number], Partial fill upon patient request if the prescription is for a schedule II opioid drug., 183, cm, 12/05/22 11:16:00... Start Date: 12/05/22 Status: Ordered Problem List Condition Confirmation Course Effective Dates Status Health St at[facility] Informant Back pain Confirmed Active Carpal tunnel syndrome, bilateral Confirmed Active Somnolence Confirmed Active Limitation due to disability 1 Confirmed Active Migraine Confirmed Active Obese class I Confirmed Active Obesity Confirmed Active Opioid use disorder Confirmed Active Severe major depression, single episode, without psychotic features Confirmed Active Type 2 diabetes mellitus Confirmed Active Vitamin D deficiency Confirmed Active 1initial [place] Back Pain Scale: 22 on 05/21/14; initial [place]: 16 pm 05/21/14 Social History Social History Type Response Smoking Status Former smoker; Tobac co user in household: No entered on: 03/31/14 Sex Patient Care team information Care Team Personnel Name: Rob ACOSTA, Nahid Castanon Position: S Physician - Primary Care Member Role: PCP Address: Address: [address] [place] [address]- Care Team Related Persons Name: SADI GILBERT Address: [address] [address]
--- OUTSIDE RECORDS SUMMARY | 2024-01-01 12:10 | XMS_ITS | Continuity of Care Document ---
Author Organization [facility] Address [address] [place] [address]- Care Team Providers Care Chief Credit Officer Name Role Phone Nahid Rivas MD Primary Care Physician [phone] Encounter [facility] Date(s): 07/14/22 - 08/13/[address] [address]- Allergies, Adverse Reactions, Alerts Substance Reaction Severity [...] 0 Refills, Maintenance, 05/18/20 8:31:00 EDT, Cream, [facility]/pharmacy #[id number], 1 application Topically 2 times a day, 183, cm, 12/02/19 9:13:00 EDT, Height Start Date: 05/18/20 Status: Ordered diclofenac 1% topical gel 1 application, Topically, 4 times a day, PRN for pain, # 100 Gm, 2 Refills, Maintenance, 02/17/22 18:10:00 EST, Gel, [facility]/pharmacy #[id number], 183, cm, 02/01/21 10:10:00 EST, Height Start Date: 02/17/22 Stop Date: 05/18/22 Status: Ordered Flonase 50 mcg/inh nasal spray 1 sprays, Nares, Both, 2 times a day, # 16 Gm, 5 Refills, Maintenance, 02/17/22 18:10:00 EST, [place], [facility]/pharmacy #[id number], Partial fill upon patient request [...] 10/01/21 8:32:00 EDT, Route to Pharmacy Electronically, [facility]/pharmacy #[id number], Partial fill upon patient request if the prescription i... Start Date: 10/01/21 Status: Ordered montelukast 10 mg oral tablet 10 mg, 1, tablet, By Mouth, Daily, # 30 tablet, Refills 3, Tot. Refills 3, Maintenance, 06/27/22 10:37:00 EDT, Route to Pharmacy Electronically, [facility]/pharmacy #[id number], Partial fill upon patient request if the prescription is for a schedule II opioid drug... Start Date: 06/27/22 Status: Ordered Neutral position wrist splints, medium, bilateral Neutral position wrist splints, medium, bilateral, See Instructions, # 1 each, Refills 0, Tot. Refills 0, Maintenance, Wear overnight daily, 03/09/20 16:02:00 EST, Supply Start Date: 03/09/20 Status: Ordered Splint See Instructions, # 1 each, Maintenance, soft left wrist splint for Dx: wrist tendonitis, 12/01/14 8:41:15, Compound Start Date: 12/01/14 Status: Ordered SUMAtriptan 25 mg oral tablet See Instructions, TAKE 1 TABLET BY MOUTH ONCE AT ONSET OF HEADACHE. MAY REPEAT IN 2 HOURS, # 12 tablet, 1 Refills, Maintenance, 02/17/22 18:10:00 EST, [id number], 183, cm, 02/01/21 10:10:00 EST, Height Start Date: 02/17/22 Status: Ordered tramadol 200 mg oral tablet, extended release See Instructions, 1-2 tablet By Mouth Daily, use 2nd tablet sparingly, # 45 tablet, 5 Refills, Maintenance, 07/12/22 12:59:00 EDT, ER Tablet, [facility]/pharmacy #[id number], Partial fill upon patient request if the prescription is for a schedule II opioid drug.,... Start Date: 07/12/22 Status: Ordered Problem List Condition Confirmation Course Effective Dates Status Health St at[facility] Informant Back pain Confirmed Active Carpal tunnel syndrome, bilateral Confirmed Active Somnolence Confirmed Active Limitation due to disability 1 Confirmed Active Migraine Confirmed Active Obese class I Confirmed Active Obesity Confirmed Active Type 2 diabetes mellitus Confirmed Active Vitamin D deficiency Confirmed Active 1initial [place] Back Pain Scale: 22 on 05/21/14; initial [place]: 16 pm 05/21/14 Social History Social History Type Response Smoking Status Former smoker; Tobac co user in household: No entered on: 03/31/14 Sex Patient Care team information Care Team Personnel Name: Rob ACOSTA, Nahid Castanon Position: [facility] Physician - Primary Care Member Role: PCP Address: Address: [address] [place], [place] [id number]- Care Team Related Persons Name: SADI GILBERT Address: [address] [address]
--- OUTSIDE RECORDS SUMMARY | 2024-01-01 12:10 | XMS_ITS | Continuity of Care Document ---
Author Organization [facility] Address [address] [place] [id number]- Care Team Providers Care Flying Squad Worker Name Role Phone Nahid Rivas MD Primary Care Physician [phone] Encounter [facility] Date(s): 09/14/22 - 10/14/22 [facility] [address] [place] [id number] Attending Physician: Admtr, [id number] Admitting Physician: Admtr, [id number] Referring Physician: Admtr, [id number] Allergies, Adverse Reactions, Alerts Substance Reaction Severity [...] 0 Refills, Maintenance, 05/18/20 8:31:00 EDT, Cream, [facility]/pharmacy #207, 1 application Topically 2 times a day, 183, cm, 12/02/19 9:13:00 EDT, Height Start Date: 05/18/20 Status: Ordered diclofenac 1% topical gel 1 application, Topically, 4 times a day, PRN for pain, # 100 Gm, 2 Refills, Maintenance, 02/17/22 18:10:00 EST, Gel, [facility]/pharmacy #207, 183, cm, 02/01/21 10:10:00 EST, Height Start Date: 02/17/22 Stop Date: 05/18/22 Status: Ordered Flonase 50 mcg/inh nasal spray 1 sprays, Nares, Both, 2 times a day, # 16 Gm, 5 Refills, Maintenance, 02/17/22 18:10:00 EST, [place], [facility]/pharmacy #207, Partial fill upon patient request if [...] 10/01/21 8:32:00 EDT, Route to Pharmacy Electronically, [facility]/pharmacy #[id number], Partial fill upon patient request if the prescription i... Start Date: 10/01/21 Status: Ordered montelukast 10 mg oral tablet 10 mg, 1, tablet, By Mouth, Daily, # 30 tablet, Refills 3, Tot. Refills 3, Maintenance, 06/27/22 10:37:00 EDT, Route to Pharmacy Electronically, [id number], Partial fill upon patient request if [...] Refills, Maintenance, 07/12/22 12:59:00 EDT, ER Tablet, [id number], Partial fill upon patient request if the prescription is for a schedule II opioid drug.,... Start Date: 07/12/22 Status: Ordered Problem List Condition Confirmation Course Effective Dates Status [facility] at[facility] Informant Back pain Confirmed Active Carpal tunnel syndrome, bilateral Confirmed Active Somnolence Confirmed Active Limitation due to disability 1 Confirmed Active Migraine Confirmed Active Obese class I Confirmed Active Obesity Confirmed Active Type 2 diabetes mellitus Confirmed Active Vitamin D deficiency Confirmed Active 1initial [place] Back Pain Scale: 22 on 05/21/14; initial [place]: 16 pm 05/21/14 Social History Social History Type Response Smoking Status Former smoker; Tobac co user in household: No entered on: 03/31/14 Sex Patient Care team information Care Team Personnel Name: Nahid Rivas MD Position: S Physician - Primary Care Member Role: PCP Address: Address: [address] [place] [address]- Care Team Related Persons Name: SADI GILBERT Address: home [address] [place] [address]
--- OUTSIDE RECORDS SUMMARY | 2024-01-01 12:10 | XMS_ITS | Continuity of Care Document ---
Author Organization [facility] Address [address] [place] [address]- Care Team Providers Care Cleaner Assistant Name Role Phone Nahid Rivas MD Primary Care Physician [phone] Encounter [facility] Date(s): 09/02/19 - 10/02/[address] [address]- [facility] Allergies, Adverse Reactions, Alerts Substance Reaction Severity Status aspirin 1 Active Tylenol 2 Constipation Active 1bothers his stomach 2bothers his stomach Immunizations Given and Recorded Vaccine Date Status Refusal Reason influenza virus vaccine, inactivated 02/11/19 Give n influenza virus vaccine, inactivated 11/23/15 Give n influenza virus vaccine, inactivated 03/03/14 Give n tetanus/diphtheria/pertussis, acel(Tdap) 08/21/18 Given Medications AutoCPAP 8-20 cm H2O with compliance data followed with a heated humidifier AutoCPAP 8-20 cm H2O with compliance data followed with a heated humidifier, See Instructions, # 1 each, Refills 12, Tot. 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 Start Date: 01/25/18 Status: Ordered clindamycin 1% topical gel 1 application, Topically, 2 times a day, # 30 Gm, 1 Refills, Maintenance, 09/23/19 8:53:00 EDT, Gel, [id number], 1 application Topically 2 times a day, 183, cm, 09/23/19 8:40:00 EDT, Height Start Date: 09/23/19 Status: Ordered diclofenac 1% topical gel 1 application, Topically, 4 times a day, PRN for pain, # 100 Gm, 2 Refills, Maintenance, 09/23/19 8:52:00 EDT, Gel, [facility], 183, cm, 09/23/19 8:40:00 EDT, Height Start Date: 09/23/19 Stop Date: 12/22/19 Status: Ordered Freestyle Lite Lancets See Instructions, [...] Date: 03/31/14 Stop Date: 09/27/14 Status: Ordered Splint See Instructions, # 1 each, Maintenance, soft left wrist splint for Dx: wrist tendonitis, 12/01/14 8:41:15, Compound Start Date: 12/01/14 Status: Ordered tramadol 200 mg oral tablet, extended release 1-2 tablets, By Mouth, Daily, PRN Pain , Moderate, for 30 days, Dx: chronic back pain; massPat checked, # 45 tablet, 2 Refills, Hard Stop 12/02/19 12:28:00 EDT, 09/03/19 12:28:00 EDT, ER Tablet, [facility], 183, cm, 02/11/19 8:37:00 EST, Height Start Date: 09/03/19 Stop Date: 12/02/19 Status: Ordered tramadol 200 mg oral tablet, extended release 1-2 tablets, By Mouth, Daily, PRN Pain , Moderate, Dx: chronic back pain; massPat checked, # 45 tablet, 2 Refills, Maintenance, 12/02/19 12:28:00 EDT, ER Tablet, [facility], 183, cm, 08/17/208:40:00 EDT, Height Start Date: 12/02/19 Stop Date: 03/01/20 Status: Ordered Problem List Condition Effective Dates Status Health Status Inform ant Back pain(Confirmed) Active Somnolence(Confirmed) Active Limitation due to disability(Confirmed) 1 Active Obesity(Confirmed) Active Sleep apnea(Confirmed) Active Type 2 diabetes mellitus(Confirmed) Active Vitamin D deficiency(Confirmed) Active 1initial [place] Back Pain Scale: 22 on 05/21/14; initial [place]: 16 pm 05/21/14 Social History Social History Type Response Smoking Status Former smoker; Tobac co user in household: No entered on: 03/31/14 Sex
--- OUTSIDE RECORDS SUMMARY | 2024-01-01 12:10 | XMS_ITS | Continuity of Care Document ---
Author Organization [facility] Address [address] [place] [address]- Care Team Providers Care Marine Steam Fitter Helper Name Role Phone Nahid Rivas MD Primary Care Physician [phone] Encounter [facility] Date(s): 01/15/21 - 02/14/[address] [address]- Allergies, Adverse Reactions, Alerts Substance Reaction Severity Status aspirin 1 Active Tylenol 2 Constipation Active 1bothers his stomach 2bothers his stomach Immunizations Given and Recorded Vaccine Date Status Refusal Reason influenza virus vaccine, inactivated 12/02/19 Give n influenza virus vaccine, inactivated 02/11/19 Give n influenza virus vaccine, inactivated 11/23/15 Give n influenza virus vaccine, inactivated 03/03/14 Give n tetanus/diphtheria/pertussis, acel(Tdap) 08/21/18 Given Medications clotrimazole 1% topical cream 1 application, Topically, 2 times a day, # 60 Gm, 0 Refills, Maintenance, 05/18/20 8:31:00 EDT, Cream, [facility], 1 application Topically 2 times a day, 183, cm, 12/02/19 9:13:00 EDT, Height Start Date: 05/18/20 Status: Ordered diclofenac 1% topical gel 1 application, Topically, 4 times a day, PRN for pain, # 100 Gm, 2 Refills, Maintenance, 03/09/20 8:24:00 EST, Gel, [id number], 183, cm, 12/02/19 9:13:00 EDT, Height Start Date: 03/09/20 Stop Date: 06/07/20 Status: Ordered Flonase 50 mcg/inh nasal spray 1 sprays, Nares, Both, 2 times a day, # 16 Gm, 5 Refills, Maintenance, 07/13/20 8:57:00 EDT, [place],[facility]/pharmacy #[id number], Partial fill upon patient request if the prescription is for a schedule II opioid drug., 1 sprays Nares, Both 2 times a day, 183, c... Start Date: 07/13/20 Status: Ordered Freestyle Lite Lancets See Instructions, [...] Mouth, 3 times a day, PRN, # 50 tablet, Refills 0, Tot. Refills 0, Maintenance, Pain , Moderate, 01/14/21 14:46:00 EST, Route to Pharmacy Electronically, [facility]/pharmacy #[id number], Partial fill upon patient request if the prescription i... Start Date: 01/14/21 Stop Date: 01/28/21 Status: Ordered Neutral position wrist splints, medium, [...] Status: Ordered SUMAtriptan 25 mg oral tablet 1 tablet = 25 mg, By Mouth, Once, At onset of headache. May repeat in 2 hours, # 18 tablet, 0 Refills, Soft Stop, 01/25/21 11:02:00 EST, Tablet, [facility]/pharmacy #[id number], Partial fill upon patient request if the prescription is for a schedule II opioid drug... Start Date: 01/25/21 Status: Ordered tramadol 200 mg oral tablet, extended release See Instructions, 1-2 tablet By Mouth Daily, use 2nd tablet sparingly, # 45 tablet, 5 Refills, Maintenance, 02/03/21 9:30:00 EST, ER Tablet, [facility]/pharmacy #[id number], Partial fill upon patient request if the prescription is for a schedule II opioid drug., 1... Start Date: 02/03/21 Status: Ordered Problem List Condition Effective Dates Status Health Status Inform ant Back pain(Confirmed) Active Carpal tunnel syndrome, bilateral(Confirmed) Active Somnolence(Confirmed) Active Limitation due to disability(Confirmed) 1 Active Migraine(Confirmed) Active Obese class I(Confirmed) Active Obesity(Confirmed) Active Type 2 diabetes mellitus(Confirmed) Active Vitamin D deficiency(Confirmed) Active 1initial [place] Back Pain Scale: 22 on 05/21/14; initial [place]: 16 pm 05/21/14 Social History Social History Type Response Smoking Status Former smoker; Tobac co user in household: No entered on: 03/31/14 Sex
--- OUTSIDE RECORDS SUMMARY | 2024-01-01 12:10 | XMS_ITS | Continuity of Care Document ---
Author Organization [facility] Address [address] [place] [address]- Care Team Providers Care Public Stenographer Name Role Phone Nahid Rivas MD Primary Care Physician [place] [facility] [place] Date(s[place] 02/14/23 - 04/12/[address] [address] Encounter Diagnosis Asthma(Discharge Diagnosis) - 03/13/23 Opioid use disorder(Discharge Diagnosis) - 03/13/23 Attending Physician: Nahid Rivas MD Admitting Physician: Nahid Rivas MD Allergies, Adverse Reactions, Alerts Substance Reaction Severity [...] Given tetanus-diphtheria toxoids (Td) 10/21/16 Recorded Medications albuterol CFC free 90 mcg/inh inhalation aerosol 1, puffs, Inhalation, 4 times a day, PRN, # 8 Gm, Refills 0, Tot. Refills 0, Maintenance, 03/13/23 10:32:00 EST, Aerosol, Route to Pharmacy Electronically, [id number], [facility]/pharmacy #[id number], 183, cm, 01/23/23 10:48:00 EST, Heigh... 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 [...] 02/19/23 14:33:00 EST, Route to Pharmacy Electronically, [facility], 183, cm, 01/23/23 10:48:00 EST, Height, 103.4, kg, 12/19/22 11:22:00 EST, Dry Weight Start Date: 02/19/23 Status: Ordered clotrimazole 1% topical cream 1 application, Topically, 2 times a day, # 60 Gm, 0 Refills, Maintenance, 05/18/20 8:31:00 EDT, Cream, [facility]/pharmacy #[id number], 1 application Topically 2 times a day, 183, cm, 12/02/19 9:13:00 EDT, Height Start Date: 05/18/20 Status: Ordered diclofenac 1% topical gel 1 application, Topically, 4 times a day, PRN for pain, # 100 Gm, 2 Refills, Maintenance, 02/17/22 18:10:00 EST, Gel, [facility]/pharmacy #[id number], 183, cm, 02/01/21 10:10:00 EST, Height Start Date: 02/17/22 Stop Date: 05/18/22 Status: Ordered fluticasone 50 mcg/inh nasal spray See Instructions, USE 1 SPRAY IN EACH NOSTRIL TWICE A DAY, # 48 mL, 1 Refills, Maintenance, 01/24/23 8:14:00 EST, [facility] 497[facility], 90, USE 1 SPRAY IN EACH NOSTRIL [...] Date: 03/31/14 Stop Date: 09/27/14 Status: Ordered gabapentin 300 mg oral capsule [...] Refills, Maintenance, 02/19/23 14:33:00 EST, [facility], 183, cm, 01/23/23 10:48:00 EST, Height, 103.4, [...] tongue, # 14 film, 0 Refills, Maintenance, 04/06/23 12:27:00 EST, Film, [facility]/pharmacy #[id number], Partial fill upon patient request if the prescriptionis for a schedule II opioid drug., 1 film Sublingua... Start Date: 04/06/23 Stop Date: 04/13/23 Status: Ordered SUMAtriptan 25 mg oral tablet [...] 02/19/23 14:33:00 EST, Route to Pharmacy Electronically, [facility], 183, cm, 01/23/23 10:48:00 EST, Height, 103.4, kg, 12/19/22 11:22:00 EST, Dry Weight Start Date: 02/19/23 Status: Ordered Wellbutrin XL 150 mg/24 hours oral tablet, extended release 1 tablet = 150 mg, By Mouth, Every 24 hours, # 30 tablet, 1 Refills, Maintenance, 12/05/22 12:03:00EDT, ER Tablet, [facility]/pharmacy #[id number], Partial fill upon patient request if the [...] Active Vitamin D deficiency Confirmed Active 1initial [place] Back Pain Scale: 22 on 05/21/14; initial [place]: 16 pm 05/21/14 Diagnosis Diagnosis Type Effective Dates Health Status inical Service Informant Asthma Discharge Diagnosis 03/13/23 Opioid use disorder Discharge Diagnosis 03/13/23 Social History Social History Type Response Smoking Status Former smoker; Tobac co user in household: No entered on: 03/31/14 Sex Patient Care team information Care Team Personnel Name: Rob ACOSTA, Nahid Castanon Position: [facility] Physician - Primary Care Member Role: PCP Address: Address: [address] [place] [address]- Care Team Related Persons Name: SADI GILBERT Address: home [address] [place] [address]
--- OUTSIDE RECORDS SUMMARY | 2024-01-01 12:10 | XMS_ITS | Continuity of Care Document ---
Author Organization [facility] Address [address] [place] [address]- Care Team Providers Care Logistics Manager Name Role Phone Nahid Rivas MD Primary Care Physician Encounter [facility] Date(s): 02/11/19 - 04/11/[address] [address]- Oral States Attending Physician: Nai Raza MD Admitting Physician: Nai Raza MD Referring Physician: Nahid Rivas MD Allergies, Adverse Reactions, [...] G47.33 ... Start Date: 01/25/18 Status: Ordered diclofenac 1% topical gel 1 application, Topically, 4 times a day, PRN for pain, # 100 Gm, 2 Refills, Maintenance, 10/05/18 16:08:21 EDT, Gel, 1 application Topically 4 times a day,x30 days,PRN:for pain Start Date: 10/05/18 Stop Date: 01/03/19 Status: Ordered Freestyle Lite Lancets See Instructions, [...] checked, # 45 tablet, 2 Refills, Maintenance, 02/11/19 9:02:00 EST, ER Tablet, [facility]/pharmacy #[id number], 183, cm, 02/11/19 8:37:00 EST, Height Start Date: 02/11/19 Stop Date: 05/12/19 Status: Ordered Problem List Condition Effective Dates Status Health Status Inform ant Back pain(Confirmed) Active Somnolence(Confirmed) Active Limitation due to disability(Confirmed) 1 Active Obesity(Confirmed) Active Sleep apnea(Confirmed) Active Type 2 diabetes mellitus(Confirmed) Active Vitamin D deficiency(Confirmed) Active 1initial [place] Back Pain Scale: 22 on 05/21/14; initial [place]: 16 pm 05/21/14 Social History Social History Type Response Smoking Status Former smoker; Tobac co user in household: No entered on: 03/31/14 Sex
--- OUTSIDE RECORDS SUMMARY | 2024-01-01 12:10 | XMS_ITS | Continuity of Care Document ---
Author Organization [facility] Address [address] [place] [address]- Care Team Providers Care Clam Sorter Name Role Phone Rob ACOSTA, Nahid Castanon Primary Care Physician Encounter [facility] Date(s): 06/05/23 - 07/05/[address] [address] Allergies, Adverse Reactions, Alerts Substance Reaction Severity [...] a day, # 120 tablet, Refills 0, Tot. Refills 0, Maintenance, 06/25/23 13:01:00 EDT, [id number], cm, 01/23/23 10:48:00 EST, Height, 103.4, kg, 12/19/22 11:22:00 EST, Dry Weight Start Date: 06/25/23 Status: Ordered clotrimazole 1% topical cream 1 application, Topically, 2 times a day, # 60 Gm, 0 Refills, Maintenance, 06/29/23 16:50:00 EDT, Cream, [id number] 1 application Topically 2 times a day, 183, cm, 01/23/23 10:48:00 EST, Height, 103.4, kg, 12/19/22 11:22:00 EST, Dry Weight Start Date: 06/29/23 Status: Ordered diclofenac 1% topical gel 1 application, Topically, 4 times a day, PRN for pain, # 100 Gm, 2 Refills, Maintenance, 02/17/22 18:10:00 EST, Gel, [id number] 183, cm, 02/01/21 10:10:00 EST, Height Start Date: 02/17/22 Stop Date: 05/18/22 Status: Ordered fluticasone 50 mcg/inh nasal spray See Instructions, USE 1 SPRAY IN EACH NOSTRIL TWICE A DAY, # 48 mL, 1 Refills, Maintenance, 01/24/23 8:14:00 EST, [facility] ST[facility] 675[facility], 90, USE 1 SPRAY IN EACH NOSTRIL [...] 180 capsule, Refills 5, Tot. Refills 5, Maintenance,10/04/23 10:10:00 EDT, Route to Pharmacy Electronically, [facility]/pharmacy #[id number], Partial fill upon patient request if the prescription is for a schedule II... Start Date: 10/04/23 Stop Date: 04/01/24 Status: Ordered gabapentin 300 mg oral capsule 600 mg, 2, capsule, By Mouth, 3 times a day, for 30 days, # 180 capsule, Refills 5, Tot. Refills 5,Hard Stop 10/04/23 10:10:00 EDT, 04/07/23 10:10:00 EST, Route to Pharmacy Electronically, [facility]/pharmacy #[id number], Partial fill upon patient request if the... Start Date: 04/07/23 Stop Date: 10/04/23 Status: Ordered ibuprofen 800 mg oral tablet 1, tablet, By Mouth, 3 times a day, PRN, # 270 tablet, Refills 1, Maintenance, NEEDED FOR PAIN, 06/13/23 6:56:00 EDT, Route to Pharmacy Electronically, [facility], 183, cm, 01/23/23 10:48:00 EST, Height, 103.4, kg, 12/19/22 11:22:00 EST, Dry W... Start Date: 06/13/23 Status: Ordered montelukast 10 mg oral tablet 10 mg, 1, tablet, By Mouth, Daily, # 30 tablet, Refills 3, Tot. Refills 3, Maintenance, 06/27/22 10:37:00 EDT, Route to Pharmacy Electronically, [facility]/pharmacy #[id number], Partial fill upon patient request if [...] Refills, Maintenance, 02/19/23 14:33:00 EST, [facility], 183, cm, 01/23/23 10:48:00 EST, Height, 103.4, kg, 12/19/22 11:22:00 EST, Dry Weight Start Date: 02/19/23 Status: Ordered Splint See Instructions, # 1 each, Maintenance, soft left wrist splint for Dx: wrist tendonitis, 12/01/14 8:41:15, Compound Start Date: 12/01/14 Status: Ordered Suboxone 8 mg-2 mg sublingual film 1 film, Sublingual, 2 times a day, dissolve under the tongue, # 28 film, 0 Refills, Maintenance, 06/30/23 7:09:00 EDT, Film, [facility]/pharmacy #[id number], Partial fill upon patient request if the prescription is for a schedule II opioid drug., 1 film Sublingual... Start Date: 06/30/23 Stop Date: 07/14/23 Status: Ordered SUMAtriptan 25 mg oral tablet See Instructions, TAKE 1 TABLET BY MOUTH ONCE AT ONSET OF HEADACHE. MAY REPEAT IN 2 HOURS, # 12 tablet, 1 Refills, Maintenance, 02/17/22 18:10:00 EST, [facility]/pharmacy #[id number], 183, cm, 02/01/21 10:10:00 EST, Height Start Date: 02/17/22 Status: Ordered traZODone 50 mg oral tablet 1, tablet, By Mouth, Daily at bedtime, # 30 tablet, Refills 3, Tot. Refills 3, Maintenance, 06/05/23 14:55:00 EDT, Route to Pharmacy Electronically, [facility]/pharmacy #207, 183, cm, 01/23/23 10:48:00 EST, Height, 103.4, kg, 12/19/22 11:22:00 EST, Dry Weight Start Date: 06/05/23 Status: Ordered Ventolin HFA 108 mcg/inh inhalation aerosol with adapter 1 puffs, Inhalation, 4 times a day, PRN NEEDED FOR WHEEZE, # 18 each, 1 Refills, Maintenance, 04/17/23 17:53:00 EDT, [facility], 183, cm, 01/23/23 10:48:00 EST, Height, 103.4, kg, 12/19/22 11:22:00 EST, Dry Weight Start Date: 04/17/23 Status: Ordered Wellbutrin XL 150 mg/24 hours oral tablet, extended release 1 tablet = 150 mg, By Mouth, Every 24 hours, # 30 tablet, 1 Refills, Maintenance, 12/05/22 12:03:00EDT, ER Tablet, [facility]/pharmacy #[id number], Partial fill upon patient request if [...] Active Vitamin D deficiency Confirmed Active 1initial [place] Back Pain Scale: 22 on 05/21/14; initial [place]: 16 pm 05/21/14 Social History Social History Type Response Smoking Status Former smoker; Tobac co user in household: No entered on: 03/31/14 Sex Patient Care team information Care Team Personnel Name: Nahid Rivas MD Position: S Physician - Primary Care Member Role: PCP Address: Address: [address] [place] [address]- Care Team Related Persons Name: GILBERT, SADI Address: home [address] [place] [address]
--- OUTSIDE RECORDS SUMMARY | 2024-01-01 12:10 | XMS_ITS | Continuity of Care Document ---
Author Organization [facility] Address [address] [place] [address]- Care Team Providers Care Boilermaker Welder Name Role Phone Rob ACOSTA, Nahid Castanon Primary Care Physician Encounter [facility] [place] Date(s): 08/07/23 - 09/06/[address] [address] Allergies, Adverse Reactions, Alerts Substance Reaction [...] tablet, Refills 0, Tot. Refills 0, Maintenance, 08/08/23 13:16:00 EDT, [id number], cm, 01/23/23 10:48:00 EST, Height, 103.4, kg, 12/19/22 11:22:00 EST, Dry Weight Start Date: 08/08/23 Status: Ordered clotrimazole 1% topical cream 1 application, Topically, 2 times a day, # 60 Gm, 0 Refills, Maintenance, 06/29/23 16:50:00 EDT, Cream, [id number], 1 application Topically 2 times a day, 183, cm, 01/23/23 10:48:00 EST, Height, 103.4, kg, 12/19/22 11:22:00 EST, Dry Weight Start Date: 06/29/23 Status: Ordered diclofenac 1% topical gel 1 application, Topically, 4 times a day, PRN for pain, # 100 Gm, 2 Refills, Maintenance, 02/17/22 18:10:00 EST, Gel, [id number] 183, cm, 02/01/21 10:10:00 EST, Height Start Date: 02/17/22 Stop Date: 05/18/22 Status: Ordered fluticasone 50 mcg/inh nasal spray See Instructions, USE 1 SPRAY IN EACH NOSTRIL TWICE A DAY, # 48 mL, 1 Refills, Maintenance, 01/24/23 8:14:00 EST, [facility] STORE 700[facility], 90, USE 1 SPRAY IN EACH NOSTRIL [...] Maintenance,10/04/23 10:10:00 EDT, Route to Pharmacy Electronically, [facility]/pharmacy #[id number], Partial fill upon patient request if the prescription is for a schedule II... Start Date: 10/04/23 Stop Date: 04/01/24 Status: Ordered gabapentin 300 mg oral capsule 600 mg, 2, capsule, By Mouth, 3 times a day, for 30 days, # 180 capsule, Refills 5, Tot. Refills 5,Hard Stop 10/04/23 10:10:00 EDT, 04/07/23 10:10:00 EST, Route to Pharmacy Electronically, [facility]/pharmacy #[id number], Partial fill upon patient request if the... Start Date: 04/07/23 Stop Date: 10/04/23 Status: Ordered ibuprofen 800 mg oral tablet 1, tablet, By Mouth, 3 times a day, PRN, # 270 tablet, Refills 1, Maintenance, NEEDED FOR PAIN, 06/13/23 6:56:00 EDT, Route to Pharmacy Electronically, [facility] 34756, 183, cm, 01/23/23 10:48:00 EST, Height, 103.4, kg, 12/19/22 11:22:00 EST, Dry W... Start Date: 06/13/23 Status: Ordered montelukast 10 mg oral tablet 10 mg, 1, tablet, By Mouth, Daily, # 30 tablet, Refills 3, Tot. Refills 3, Maintenance, 06/27/22 10:37:00 EDT, Route to Pharmacy Electronically, [facility]/pharmacy #[id number], Partial fill upon patient request if [...] Refills, Maintenance, 02/19/23 14:33:00 EST, [facility], 183, cm, 01/23/23 10:48:00 EST, Height, 103.4, [...] tongue, # 28 film, 0 Refills, Maintenance, 08/21/23 12:56:00 EDT, Film, [facility]/pharmacy #[id number], Partial fill upon patient request if the prescriptionis for a schedule II opioid drug., 1 film Sublingua... Start Date: 08/21/23 Stop Date: 09/04/23 Status: Ordered SUMAtriptan 25 mg oral tablet See Instructions, TAKE 1 TABLET BY MOUTH ONCE AT ONSET OF HEADACHE. MAY REPEAT IN 2 HOURS, # 12 tablet, 1 Refills, Maintenance, 02/17/22 18:10:00 EST, [facility]/pharmacy #[id number], 183, cm, 02/01/21 10:10:00 EST, Height Start Date: 02/17/22 Status: Ordered traZODone 50 mg oral tablet 1, tablet, By Mouth, Daily at bedtime, # 30 tablet, Refills 5, Tot. Refills 5, Maintenance, 08/07/23 15:59:00 EDT, Route to Pharmacy Electronically, [facility]/pharmacy #207, 183, cm, 01/23/23 10:48:00 EST, Height, 103.4, kg, 12/19/22 11:22:00 EST, Dry Weight Start Date: 08/07/23 Status: Ordered Ventolin HFA 108 mcg/inh inhalation aerosol with adapter 1 puffs, Inhalation, 4 times a day, PRN NEEDED FOR WHEEZE, # 18 each, 1 Refills, Maintenance, 04/17/23 17:53:00 EDT, [facility], 183, cm, 01/23/23 10:48:00 EST, Height, 103.4, kg, 12/19/22 11:22:00 EST, Dry Weight Start Date: 04/17/23 Status: Ordered Wellbutrin XL 150 mg/24 hours oral tablet, extended release 1 tablet = 150 mg, By Mouth, Every 24 hours, # 30 tablet, 1 Refills, Maintenance, 12/05/22 12:03:00EDT, ER Tablet, [facility]/pharmacy #[id number], Partial fill upon patient request if [...] Active Vitamin D deficiency Confirmed Active 1initial [place] Back Pain Scale: 22 on 05/21/14; initial [place]: 16 pm 05/21/14 Social History Social History Type Response Smoking Status Former smoker; Tobac co user in household: No entered on: 03/31/14 Sex Patient Care team information Care Team Personnel Name: Nahid Rivas MD Position: S Physician - Primary Care Member Role: PCP Address: Address: [address] [place] [address]- Care Team Related Persons Name: SADI GILBERT Address: home [address] [place] [address]
--- OUTSIDE RECORDS SUMMARY | 2024-01-01 12:10 | XMS_ITS | Continuity of Care Document ---
Author Organization [facility] Address [address] [place] [address]- Care Team Providers Care High School Music Instructor Name Role Phone Nahid Rivas MD Primary Care Physician [phone] Encounter [facility] [place] Date(s): 02/25/20 - 03/26/[address] [address]- Allergies, Adverse Reactions, Alerts Substance Reaction Severity [...] day, # 60 Gm, 0 Refills, Maintenance, 03/09/20 8:24:00 EST, Cream, [facility], 1 application Topically 2 times a day, 183, cm, 12/02/19 9:13:00 EDT, Height Start Date: 03/09/20 Status: Ordered diclofenac 1% topical gel 1 application, Topically, 4 times a day, PRN for pain, # 100 Gm, 2 Refills, Maintenance, 03/09/20 8:24:00 EST, Gel, [facility], 183, cm, 12/02/19 9:13:00 EDT, Height Start Date: 03/09/20 Stop Date: 06/07/20 Status: Ordered Freestyle Lite Lancets See Instructions, [...] Date: 03/31/14 Stop Date: 09/27/14 Status: Ordered Neutral position wrist splints, medium, [...] sparingly, # 45 tablet, 5 Refills, Maintenance, 03/09/20 9:43:00 EST, ER Tablet, [facility]/pharmacy #1417, Partial fill upon patient request if the prescription is for a schedule II opioid drug., 1... Start Date: 03/09/20 Status: Ordered Problem List Condition Effective Dates Status Health Status Inform ant Back pain(Confirmed) Active Somnolence(Confirmed) Active Limitation due to disability(Confirmed) 1 Active Obesity(Confirmed) Active Type 2 diabetes mellitus(Confirmed) Active Vitamin D deficiency(Confirmed) Active 1initial [place] Back Pain Scale: 22 on 05/21/14; initial [place]: 16 pm 05/21/14 Social History Social History Type Response Smoking Status Former smoker; Tobac co user in household: No entered on: 03/31/14 Sex
--- OUTSIDE RECORDS SUMMARY | 2024-01-01 12:10 | XMS_ITS | Continuity of Care Document ---
Author Organization [facility] Address [address] [place] [address]- Care Team Providers Care Electrical And Radio Mock Up Mechanic Name Role Phone Nahid Rivas MD Primary Care Physician [phone] Encounter [facility] Date(s): 01/11/21 - 02/10/[address] [address]- Allergies, Adverse Reactions, Alerts Substance Reaction Severity [...] Gm, 5 Refills, Maintenance, 07/13/20 8:57:00 EDT, [place],[facility]/pharmacy #[id number], Partial fill upon patient request [...] 01/14/21 14:46:00 EST, Route to Pharmacy Electronically, [facility]/pharmacy #[id number], Partial fill upon patient request [...] Refills, Soft Stop, 01/25/21 11:02:00 EST, Tablet, [facility]/pharmacy #[id number], Partial fill upon patient request if the prescription is for a schedule II opioid drug... Start Date: 01/25/21 Status: Ordered tramadol 200 mg oral tablet, extended release See Instructions, 1-2 tablet By Mouth Daily, use 2nd tablet sparingly, # 45 tablet, 5 Refills, Maintenance, 02/03/21 9:30:00 EST, ER Tablet, [facility]/pharmacy #[id number], Partial fill upon patient request [...] mellitus(Confirmed) Active Vitamin D deficiency(Confirmed) Active 1initial [place] Back Pain Scale: 22 on 05/21/14; initial [place]: 16 pm 05/21/14 Social History Social History Type Response Smoking Status Former smoker; Tobac co user in household: No entered on: 03/31/14 Sex
--- OUTSIDE RECORDS SUMMARY | 2024-01-01 12:10 | XMS_ITS | Continuity of Care Document ---
Author Organization [facility] Address [address] [place] [address]- Care Team Providers Care Forge Heater Name Role Phone Rob ACOSTA, Nahid Castanon Primary Care Physician Encounter [facility] Date(s): 06/20/23 - 07/20/[address] [id number] Allergies, Adverse Reactions, Alerts Substance Reaction [...] day, # 120 tablet, Refills 0, Maintenance, 07/10/23 14:09:00 EDT, Route to Pharmacy Electronically, [facility] [id number], 183, cm, 01/23/23 10:48:00 EST, Height, 103.4, kg, 12/19/22 11:22:00 EST, Dry Weight Start Date: 07/10/23 Status: Ordered clotrimazole 1% topical cream 1 application, Topically, 2 times a day, # 60 Gm, 0 Refills, Maintenance, 06/29/23 16:50:00 EDT, Cream, [facility]/pharmacy #[id number], 1 application Topically 2 times a day, 183, cm, 01/23/23 10:48:00 EST, Height, 103.4, kg, 12/19/22 11:22:00 EST, Dry Weight Start Date: 06/29/23 Status: Ordered diclofenac 1% topical gel 1 application, Topically, 4 times a day, PRN for pain, # 100 Gm, 2 Refills, Maintenance, 02/17/22 18:10:00 EST, Gel, [facility]/pharmacy #[id number], 183, cm, 02/01/21 10:10:00 EST, Height Start Date: 02/17/22 Stop Date: 05/18/22 Status: Ordered fluticasone 50 mcg/inh nasal spray See Instructions, USE 1 SPRAY IN EACH NOSTRIL TWICE A DAY, # 48 mL, 1 Refills, Maintenance, 01/24/23 8:14:00 EST, [id number], 90, USE 1 SPRAY IN EACH NOSTRIL [...] Maintenance,10/04/23 10:10:00 EDT, Route to Pharmacy Electronically, [facility]/pharmacy #[id number], Partial fill upon patient request if the prescription is for a schedule II... Start Date: 10/04/23 Stop Date: 04/01/24 Status: Ordered gabapentin 300 mg oral capsule 600 mg, 2, capsule, By Mouth, 3 times a day, for 30 days, # 180 capsule, Refills 5, Tot. Refills 5,Hard Stop 10/04/23 10:10:00 EDT, 04/07/23 10:10:00 EST, Route to Pharmacy Electronically, [facility]/pharmacy #[id number], Partial fill upon patient request if the... Start Date: 04/07/23 Stop Date: 10/04/23 Status: Ordered ibuprofen 800 mg oral tablet 1, tablet, By Mouth, 3 times a day, PRN, # 270 tablet, Refills 1, Maintenance, NEEDED FOR PAIN, 06/13/23 6:56:00 EDT, Route to Pharmacy Electronically, [facility] [id number], 183, cm, 01/23/23 10:48:00 EST, Height, 103.4, kg, 12/19/22 11:22:00 EST, Dry W... Start Date: 06/13/23 Status: Ordered montelukast 10 mg oral tablet 10 mg, 1, tablet, By Mouth, Daily, # 30 tablet, Refills 3, Tot. Refills 3, Maintenance, 06/27/22 10:37:00 EDT, Route to Pharmacy Electronically, [facility]/pharmacy #[id number], Partial fill upon patient [...] tablet, 0 Refills, Maintenance, 02/19/23 14:33:00 EST, [facility] [id number], 183, cm, 01/23/23 10:48:00 EST, Height, 103.4, [...] tongue, # 28 film, 0 Refills, Maintenance, 07/14/23 7:09:00 EDT, Film, [facility]/pharmacy #[id number], Partial fill upon patient request if the prescription is for a schedule II opioid drug., 1 film Sublingual... Start Date: 07/14/23 Stop Date: 07/28/23 Status: Ordered SUMAtriptan 25 mg oral tablet See Instructions, TAKE 1 TABLET BY MOUTH ONCE AT ONSET OF HEADACHE. MAY REPEAT IN 2 HOURS, # 12 tablet, 1 Refills, Maintenance, 02/17/22 18:10:00 EST, [facility]/pharmacy #[id number], 183, cm, 02/01/21 10:10:00 EST, Height Start Date: 02/17/22 Status: Ordered traZODone 50 mg oral tablet 1, tablet, By Mouth, Daily at bedtime, # 30 tablet, Refills 3, Tot. Refills 3, Maintenance, 06/05/23 14:55:00 EDT, Route to Pharmacy Electronically, [facility]/pharmacy #207, 183, cm, 01/23/23 10:48:00 EST, Height, 103.4, kg, 12/19/22 11:22:00 EST, Dry Weight Start Date: 06/05/23 Status: Ordered Ventolin HFA 108 mcg/inh inhalation aerosol with adapter 1 puffs, Inhalation, 4 times a day, PRN NEEDED FOR WHEEZE, # 18 each, 1 Refills, Maintenance, 04/17/23 17:53:00 EDT, [id number], 183, cm, 01/23/23 10:48:00 EST, Height, 103.4, kg, 12/19/22 11:22:00 EST, Dry Weight Start Date: 04/17/23 Status: Ordered Wellbutrin XL 150 mg/24 hours oral tablet, extended release 1 tablet = 150 mg, By Mouth, Every 24 hours, # 30 tablet, 1 Refills, Maintenance, 12/05/22 12:03:00EDT, ER Tablet, [facility]/pharmacy #[id number], Partial fill upon patient request if the [...] Active Vitamin D deficiency Confirmed Active 1initial [place] Back Pain Scale: 22 on 05/21/14; initial [place]: 16 pm 05/21/14 Social History Social History Type Response Smoking Status Former smoker; Tobac co user in household: No entered on: 03/31/14 Sex Patient Care team information Care Team Personnel Name: Rob ACOSTA, Nahid Castanon Position: [facility] Physician - Primary Care Member Role: PCP Address: Address: [address] [place] [id number]- Care Team Related Persons Name: SADI GILBERT Address: home [address] [place] [address]
--- OUTSIDE RECORDS SUMMARY | 2024-01-01 12:11 | XMS_ITS | Continuity of Care Document ---
Author Organization [facility] Address [address] [place] [id number]- Care Team Providers Care Petroleum Engineering Teacher Name Role Phone Nahid Rivas MD Primary Care Physician Encounter [facility] Date(s): 02/16/22 - 03/18/[address] [address]- Allergies, Adverse Reactions, Alerts Substance Reaction Severity [...] Refills, Maintenance, 05/18/20 8:31:00 EDT, Cream, [id number], 1 application Topically 2 times a day, 183, cm, 12/02/19 9:13:00 EDT, Height Start Date: 05/18/20 Status: Ordered diclofenac 1% topical gel 1 application, Topically, 4 times a day, PRN for pain, # 100 Gm, 2 Refills, Maintenance, 02/17/22 18:10:00 EST, Gel, [id number], 183, cm, 02/01/21 10:10:00 EST, Height Start Date: 02/17/22 Stop Date: 05/18/22 Status: Ordered Flonase 50 mcg/inh nasal spray 1 sprays, Nares, Both, 2 times a day, # 16 Gm, 5 Refills, Maintenance, 02/17/22 18:10:00 EST, [place], [facility]/pharmacy #[id number], Partial fill upon patient request [...] 10/01/21 8:32:00 EDT, Route to Pharmacy Electronically, [facility]/pharmacy #[id number], Partial fill upon patient request if the prescription i... Start Date: 10/01/21 Status: Ordered Neutral position wrist splints, medium, [...] sparingly, # 45 tablet, 5 Refills, Maintenance, 02/08/22 8:38:00 EST, ER Tablet, [facility]/pharmacy #[id number], Partial fill upon patient request if the prescription is for a schedule II opioid drug., 1... Start Date: 02/08/22 Status: Ordered Problem List Condition Confirmation Course Effective Dates Status Health St atus Informant Back pain Confirmed Active Carpal tunnel syndrome, bilateral Confirmed Active Somnolence Confirmed Active Limitation due to disability 1 Confirmed Active Migraine Confirmed Active Obese class I Confirmed Active Obesity Confirmed Active Type 2 diabetes mellitus Confirmed Active Vitamin D deficiency Confirmed Active 1initial [place] Back Pain Scale: 22 on 05/21/14; initial [place]: 16 pm 05/21/14 Social History Social History Type Response Smoking Status Former smoker; Tobac co user in household: No entered on: 03/31/14 Sex Patient Care team information Care Team Personnel Name: Rob ACOSTA, Nahid Castanon Position: [facility] Primary Care Physician Member Role: PCP Address: Address: [address] [place] [id number]- Care Team Related Persons Name: SADI GILBERT Address: [address] [address]
--- OUTSIDE RECORDS SUMMARY | 2024-01-01 12:11 | XMS_ITS | Continuity of Care Document ---
Author Organization [facility] Address [address] [place] [address]- Care Team Providers Care Tie Presser Name Role Phone Rob ACOSTA, Nahid Castanon Primary Care Physician [place] [facility] [place] - 01/24/[address] [address]- [facility] Attending Physician: Laura Arauz Admitting Physician: AdmLaura vega Referring Physician: AdmtrLaura Allergies, Adverse Reactions, Alerts Substance Reaction Severity Status aspirin 1 Active Tylenol 2 Constipation Active 1bothers his stomach 2bothers his stomach Immunizations Given and Recorded Vaccine Date Status Refusal Reason tetanus/diphtheria/pertussis, acel(Tdap) 08/21/18 Given influenza virus vaccine, inactivated 11/23/15 Give n influenza virus vaccine, inactivated 03/03/14 Give n Medications AutoCPAP 8-20 cm H2O with compliance data followed with a heated humidifier AutoCPAP 8-20 cm H2O with compliance data followed with a heated humidifier, See Instructions, # 1 each, Refills 12, Tot. 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 Start Date: 01/25/18 Status: Ordered Colace sodium 100 mg oral capsule 100 mg, 1, capsule, By Mouth, 2 times a day, PRN, with plenty of water, # 60 capsule, Refills 1, Tot. Refills 1, Maintenance, for constipation, 08/08/17 13:31:44 EDT, Route to Pharmacy Electronically, [id number], [facility]/pharmacy... Start Date: 08/08/17 Status: Ordered diclofenac 1% topical gel 1 [...] Date: 03/31/14 Stop Date: 09/27/14 Status: Ordered metFORMIN 500 mg oral tablet 1 tablet = 500 mg, By Mouth, Daily, # 30 tablet, 3 Refills, Maintenance, 12/12/17 9:18:44 EST, Tablet Start Date: 12/12/17 Stop Date: 04/11/18 Status: Ordered naproxen 500 mg oral tablet 1 tablet = 500 mg, By Mouth, 2 times a day, PRN as needed for pain, with food, # 60 tablet, 2 Refills, Maintenance, 02/08/18 16:21:52 EST, Tablet Start Date: 02/08/18 Status: Ordered Splint See Instructions, # 1 each, Maintenance, soft left wrist splint for Dx: wrist tendonitis, 12/01/14 8:41:15, Compound Start Date: 12/01/14 Status: Ordered tramadol 200 mg oral tablet, extended release 1 tablet = 200 mg, By Mouth, Daily, PRN Pain , Moderate, Dx: chronic back pain; massPat checked, # 30 tablet, 0 Refills, Maintenance, 01/09/19 16:19:47 EST, ER Tablet, 183, cm, 10/05/18 15:26:49 EDT,Height Start Date: 01/09/19 Stop Date: 02/08/19 Status: Ordered Problem List Condition Effective Dates Status Health Status Inform ant Back pain(Confirmed) Active Somnolence(Confirmed) Active Limitation due to disability(Confirmed) 1 Active Obesity(Confirmed) Active Sleep apnea(Confirmed) Active Type 2 diabetes mellitus(Confirmed) Active Vitamin D deficiency(Confirmed) Active 1initial [place] Back Pain Scale: 22 on 05/21/14; initial [place]: 16 pm 05/21/14 Social History Social History Type Response Smoking Status Former smoker; Tobac co user in household: No entered on: 03/31/14 Sex
--- OUTSIDE RECORDS SUMMARY | 2024-01-01 12:11 | XMS_ITS | Continuity of Care Document ---
Author Organization [facility] Address [address] [place] [address]- Care Team Providers Care Welder Fitter Gas Name Role Phone Nahid Rivas MD Primary Care Physician [phone] Encounter [facility] Date(s): 01/14/21 - 02/13/[address] [address]- Allergies, Adverse Reactions, Alerts Substance Reaction Severity [...] Gm, 5 Refills, Maintenance, 07/13/20 8:57:00 EDT, [place],[facility]/pharmacy #[id number], Partial fill upon patient request [...] 01/14/21 14:46:00 EST, Route to Pharmacy Electronically, [facility]/pharmacy #[id number], Partial fill upon patient request [...] Refills, Soft Stop, 01/25/21 11:02:00 EST, Tablet, [facility]/pharmacy #[id number], Partial fill upon patient request if the prescription is for a schedule II opioid drug... Start Date: 01/25/21 Status: Ordered tramadol 200 mg oral tablet, extended release See Instructions, 1-2 tablet By Mouth Daily, use 2nd tablet sparingly, # 45 tablet, 5 Refills, Maintenance, 02/03/21 9:30:00 EST, ER Tablet, [facility]/pharmacy #[id number], Partial fill upon patient request [...] mellitus(Confirmed) Active Vitamin D deficiency(Confirmed) Active 1initial [place] Back Pain Scale: 22 on 05/21/14; initial [place]: 16 pm 05/21/14 Social History Social History Type Response Smoking Status Former smoker; Tobac co user in household: No entered on: 03/31/14 Sex
--- OUTSIDE RECORDS SUMMARY | 2024-01-01 12:11 | XMS_ITS | Continuity of Care Document ---
Author Organization [facility] Address [address] [place] [address]- Care Team Providers Care Senior Technical Editor Name Role Phone Rob ACOSTA, Nahid Castanon Primary Care Physician [phone] [place] [facility] [place] 07/[place]/[address] [address] Allergies, Adverse Reactions, Alerts [...] 07/10/23 14:09:00 EDT, Route to Pharmacy Electronically, [facility] [id number], 183, cm, 01/23/23 10:48:00 EST, Height, 103.4, kg, 12/19/22 11:22:00 EST, Dry Weight Start Date: 07/10/23 Status: Ordered clotrimazole 1% topical cream 1 application, Topically, 2 times a day, # 60 Gm, 0 Refills, Maintenance, 06/29/23 16:50:00 EDT, Cream, [facility]/pharmacy #[id number], 1 application Topically 2 times a day, 183, cm, 01/23/23 10:48:00 EST, Height, 103.4, kg, 12/19/22 11:22:00 EST, Dry Weight Start Date: 06/29/23 Status: Ordered diclofenac 1% topical gel 1 application, Topically, 4 times a day, PRN for pain, # 100 Gm, 2 Refills, Maintenance, 02/17/22 18:10:00 EST, Gel, [facility]/pharmacy #[id number], 183, cm, 02/01/21 10:10:00 EST, Height Start Date: 02/17/22 Stop Date: 05/18/22 Status: Ordered fluticasone 50 mcg/inh nasal spray See Instructions, USE 1 SPRAY IN EACH NOSTRIL TWICE A DAY, # 48 mL, 1 Refills, Maintenance, 01/24/23 8:14:00 EST, [facility] [id number], 90, USE 1 SPRAY IN EACH NOSTRIL [...] Maintenance,10/04/23 10:10:00 EDT, Route to Pharmacy Electronically, [facility]/pharmacy #[id number], Partial fill upon patient request if the prescription is for a schedule II... Start Date: 10/04/23 Stop Date: 04/01/24 Status: Ordered gabapentin 300 mg oral capsule 600 mg, 2, capsule, By Mouth, 3 times a day, for 30 days, # 180 capsule, Refills 5, Tot. Refills 5,Hard Stop 10/04/23 10:10:00 EDT, 04/07/23 10:10:00 EST, Route to Pharmacy Electronically, [facility]/pharmacy #[id number], Partial fill upon patient request if the... Start Date: 04/07/23 Stop Date: 10/04/23 Status: Ordered ibuprofen 800 mg oral tablet 1, tablet, By Mouth, 3 times a day, PRN, # 270 tablet, Refills 1, Maintenance, NEEDED FOR PAIN, 06/13/23 6:56:00 EDT, Route to Pharmacy Electronically, [id number], 183, cm, 01/23/23 10:48:00 EST, Height, 103.4, kg, 12/19/22 11:22:00 EST, Dry W... Start Date: 06/13/23 Status: Ordered montelukast 10 mg oral tablet 10 mg, 1, tablet, By Mouth, Daily, # 30 tablet, Refills 3, Tot. Refills 3, Maintenance, 06/27/22 10:37:00 EDT, Route to Pharmacy Electronically, [facility]/pharmacy #[id number], Partial fill upon patient request [...] tablet, 0 Refills, Maintenance, 02/19/23 14:33:00 EST, [facility]202, 183, cm, 01/23/23 10:48:00 EST, Height, 103.4, [...] 0 Refills, Maintenance, 07/14/23 7:09:00 EDT, Film, [facility]/pharmacy #[id number], Partial fill upon patient request if the prescription is for a schedule II opioid drug., 1 film Sublingual... Start Date: 07/14/23 Stop Date: 07/28/23 Status: Ordered SUMAtriptan 25 mg oral tablet See Instructions, TAKE 1 TABLET BY MOUTH ONCE AT ONSET OF HEADACHE. MAY REPEAT IN 2 HOURS, # 12 tablet, 1 Refills, Maintenance, 02/17/22 18:10:00 EST, [facility]/pharmacy #[id number], 183, cm, 02/01/21 10:10:00 EST, Height Start Date: 02/17/22 Status: Ordered traZODone 50 mg oral tablet 1, tablet, By Mouth, Daily at bedtime, # 30 tablet, Refills 3, Tot. Refills 3, Maintenance, 06/05/23 14:55:00 EDT, Route to Pharmacy Electronically, [facility]/pharmacy #207, 183, cm, 01/23/23 10:48:00 EST, Height, 103.4, kg, 12/19/22 11:22:00 EST, Dry Weight Start Date: 06/05/23 Status: Ordered Ventolin HFA 108 mcg/inh inhalation aerosol with adapter 1 puffs, Inhalation, 4 times a day, PRN NEEDED FOR WHEEZE, # 18 each, 1 Refills, Maintenance, 04/17/23 17:53:00 EDT, [id number], 183, cm, 01/23/23 10:48:00 EST, Height, 103.4, kg, 12/19/22 11:22:00 EST, Dry Weight Start Date: 04/17/23 Status: Ordered Wellbutrin XL 150 mg/24 hours oral tablet, extended release 1 tablet = 150 mg, By Mouth, Every 24 hours, # 30 tablet, 1 Refills, Maintenance, 12/05/22 12:03:00EDT, ER Tablet, [facility]/pharmacy #[id number], Partial fill upon patient request if the [...] Active Vitamin D deficiency Confirmed Active 1initial [place] Back Pain Scale: 22 on 05/21/14; initial [place]: 16 pm 05/21/14 Social History Social History Type Response Smoking Status Former smoker; Tobac co user in household: No entered on: 03/31/14 Sex Patient Care team information Care Team Personnel Name: Rob ACOSTA, Nahid Castanon Position: [facility] Physician - Primary Care Member Role: PCP Address: Address: [address] [place] [id number]- Care Team Related Persons Name: SADI GILBERT Address: home [address] [place] [address]
--- OUTSIDE RECORDS SUMMARY | 2024-01-01 12:11 | XMS_ITS | Continuity of Care Document ---
Author Organization [facility] Address [address] [place] [address]- Care Team Providers Care Motion Picture Narrator Name Role Phone Nahid Rivas MD Primary Care Physician [phone] Encounter [facility] [place] Date(s): 09/30/21 - 10/30/[address] [address]- Allergies, Adverse Reactions, Alerts Substance Reaction Severity [...] pain, # 100 Gm, 2 Refills, Maintenance, 10/01/21 8:32:00 EDT, Gel, [id number], 183, cm, 02/01/21 10:10:00 EST, Height Start Date: 10/01/21 Stop Date: 12/30/21 Status: Ordered Flonase 50 mcg/inh nasal spray 1 sprays, Nares, Both, 2 times a day, # 16 Gm, 5 Refills, Maintenance, 07/13/20 8:57:00 EDT, [place],[facility]/pharmacy #[id number], Partial fill upon patient request if [...] 10/01/21 8:32:00 EDT, Route to Pharmacy Electronically, [facility]/pharmacy #[id number], Partial fill upon patient request if [...] HOURS, # 12 tablet, 1 Refills, Maintenance, 10/01/21 8:32:00 EDT, [id number], 183, cm, 02/01/21 10:10:00 EST, Height Start Date: 10/01/21 Status: Ordered tramadol 200 mg oral tablet, extended release See Instructions, 1-2 tablet By Mouth Daily, use 2nd tablet sparingly, # 45 tablet, 5 Refills, Maintenance, 08/07/21 12:16:00 EDT, ER Tablet, [facility]/pharmacy #[id number], Partial fill upon patient request if the prescription is for a schedule II opioid drug.,... Start Date: 08/07/21 Status: Ordered Problem List Condition Effective Dates Status Health Status Inform ant Back pain(Confirmed) Active Carpal tunnel syndrome, bilateral(Confirmed) Active Somnolence(Confirmed) Active Limitation due to disability(Confirmed) 1 Active Migraine(Confirmed) Active Obese class I(Confirmed) Active Obesity(Confirmed) Active Type 2 diabetes mellitus(Confirmed) Active Vitamin D deficiency(Confirmed) Active 1initial [place] Back Pain Scale: 22 on 05/21/14; initial [place]: 16 pm 05/21/14 Social History Social History Type Response Smoking Status Former smoker; Tobac co user in household: No entered on: 03/31/14 Sex Care Team Personnel Name: Nahid Rivas MD Address: [address] [place] [address]
--- OUTSIDE RECORDS SUMMARY | 2024-01-01 12:11 | XMS_ITS | Continuity of Care Document ---
Author Organization [facility] Address [address] [place] [address]- Care Team Providers Care Wet Pour Mixer Name Role Phone Nahid Rivas MD Primary Care Physician [phone] [place] [facility] [place] 01/09/19 - 02/13/[address] [address] [place] Attending Physician: Nahid Rivas MD Admitting Physician: [...] Refills, Maintenance, 02/11/19 9:02:00 EST, ER Tablet, [facility]/pharmacy #[id number], 183, cm, 02/11/19 8:37:00 EST, Height Start Date: 02/11/19 Stop Date: 05/12/19 Status: Ordered Problem List Condition Effective Dates Status Health Status Inform ant Back pain(Confirmed) Active Somnolence(Confirmed) Active Limitation due to disability(Confirmed) 1 Active Obesity(Confirmed) Active Sleep apnea(Confirmed) Active Type 2 diabetes mellitus(Confirmed) Active Vitamin D deficiency(Confirmed) Active 1initial [place] Back Pain Scale: 22 on 05/21/14; initial [place]: 16 pm 05/21/14 Social History Social History Type Response Smoking Status Former smoker; Tobac co user in household: No entered on: 03/31/14 Sex
--- OUTSIDE RECORDS SUMMARY | 2024-01-01 12:11 | XMS_ITS | Continuity of Care Document ---
Author Organization [facility] Address [address] [place] [id number]- Care Team Providers Care Cement Boat And Barge Loader Name Role Phone Nahid Rivas MD Primary Care Physician Encounter [facility] Date(s): 03/24/23 - 04/29/23 [facility] [address] [place] [id number] Attending Physician: Nahid Rivas MD Admitting Physician: Nahid Rivas MD Referring Physician: Nahid Rivas MD Allergies, [...] 02/19/23 14:33:00 EST, Route to Pharmacy Electronically, [id number], 183, cm, 01/23/23 10:48:00 EST, Height, 103.4, kg, 12/19/22 11:22:00 EST, Dry Weight Start Date: 02/19/23 Status: Ordered clotrimazole 1% topical cream 1 application, Topically, 2 times a day, # 60 Gm, 0 Refills, Maintenance, 05/18/20 8:31:00 EDT, Cream, [facility]/pharmacy #[id number], 1 application Topically 2 times a day, 183, cm, 12/02/19 9:13:00 EDT, Height Start Date: 05/18/20 Status: Ordered diclofenac 1% topical gel 1 application, Topically, 4 times a day, PRN for pain, # 100 Gm, 2 Refills, Maintenance, 02/17/22 18:10:00 EST, Gel, [facility]/pharmacy #[id number], 183, cm, 02/01/21 10:10:00 EST, Height Start Date: 02/17/22 Stop Date: 05/18/22 Status: Ordered fluticasone 50 mcg/inh nasal spray See Instructions, USE 1 SPRAY IN EACH NOSTRIL TWICE A DAY, # 48 mL, 1 Refills, Maintenance, 01/24/23 8:14:00 EST, [id number], 90, USE 1 SPRAY IN EACH NOSTRIL [...] Maintenance,04/07/23 10:10:00 EST, Route to Pharmacy Electronically, [facility]/pharmacy #[id number], Partial fill upon patient request if the prescription is for a schedule II... Start Date: 04/07/23 Stop Date: 10/04/23 Status: Ordered ibuprofen 800 mg oral tablet 800 mg, 1, tablet, By Mouth, 3 times a day, PRN, # 270 tablet, Refills 1, Tot. Refills 1, Maintenance, Pain , Moderate, 12/19/22 11:49:00 EST, Route to Pharmacy Electronically, [facility]/pharmacy #[id number], Partial fill upon patient request if the prescription... Start Date: 12/19/22 Status: Ordered montelukast 10 mg oral tablet 10 mg, 1, tablet, By Mouth, Daily, # 30 tablet, Refills 3, Tot. Refills 3, Maintenance, 06/27/22 10:37:00 EDT, Route to Pharmacy Electronically, [facility]/pharmacy #[id number], Partial fill upon patient [...] tablet, 0 Refills, Maintenance, 02/19/23 14:33:00 EST, [facility] STORE [id number], 183, cm, 01/23/23 10:48:00 EST, Height, 103.4, kg, 12/19/22 11:22:00 EST, Dry Weight Start Date: 02/19/23 Status: Ordered Splint See Instructions, # 1 each, Maintenance, soft left wrist splint for Dx: wrist tendonitis, 12/01/14 8:41:15, Compound Start Date: 12/01/14 Status: Ordered Suboxone 8 mg-2 mg sublingual film 1 film, Sublingual, 2 times a day, for 7 days, dissolve under the tongue, # 14 film, 0 Refills, Hard Stop 05/01/23 17:54:00 EDT, 04/24/23 17:54:00 EDT, Film, [facility]/pharmacy #[id number], Partial fill upon patient request if the prescription is for a schedule I... Start Date: 04/24/23 Stop Date: 05/01/23 Status: Ordered Suboxone 8 mg-2 mg sublingual film 1 film, Sublingual, 2 times a day, dissolve under the tongue, # 14 film, 0 Refills, Maintenance, 05/01/23 17:54:00 EDT, Film, [facility]/pharmacy #[id number], Partial fill upon patient request if the prescriptionis for a schedule II opioid drug., 1 film Sublingua... Start Date: 05/01/23 Stop Date: 05/08/23 Status: Ordered SUMAtriptan 25 mg oral tablet See Instructions, TAKE 1 TABLET BY MOUTH ONCE AT ONSET OF HEADACHE. MAY REPEAT IN 2 HOURS, # 12 tablet, 1 Refills, Maintenance, 02/17/22 18:10:00 EST, [facility]/pharmacy #[id number], 183, cm, 02/01/21 10:10:00 EST, Height Start Date: 02/17/22 Status: Ordered traZODone 50 mg oral tablet 1, tablet, By Mouth, Daily at bedtime, # 30 tablet, Refills 0, Maintenance, 02/19/23 14:33:00 EST, Route to Pharmacy Electronically, [facility] STORE 05522, 183, cm, 01/23/23 10:48:00 EST, Height, 103.4, kg, 12/19/22 11:22:00 EST, Dry Weight Start Date: 02/19/23 Status: Ordered Ventolin HFA 108 mcg/inh inhalation aerosol with adapter 1 puffs, Inhalation, 4 times a day, PRN NEEDED FOR WHEEZE, # 18 each, 1 Refills, Maintenance, 04/17/23 17:53:00 EDT, [facility], 183, cm, 01/23/23 10:48:00 EST, Height, 103.4, kg, 12/19/22 11:22:00 EST, Dry Weight Start Date: 04/17/23 Status: Ordered Wellbutrin XL 150 mg/24 hours oral tablet, extended release 1 tablet = 150 mg, By Mouth, Every 24 hours, # 30 tablet, 1 Refills, Maintenance, 12/05/22 12:03:00EDT, ER Tablet, [facility]/pharmacy #[id number], Partial fill upon patient request if the [...] Back Pain Scale: 22 on 05/21/14; initial [place]: 16 pm 05/21/14 Social History Social History Type Response Smoking Status Former smoker; Tobac co user in household: No entered on: 03/31/14 Sex Patient Care team information Care Team Personnel Name: Nahid Rivas MD Position: [facility] Physician - Primary Care Member Role: PCP Address: Address: [address] [place] [address]- Care Team Related Persons Name: SADI GILBERT Address: home [address] [place] [address]
--- OUTSIDE RECORDS SUMMARY | 2024-01-01 12:11 | XMS_ITS | Continuity of Care Document ---
Author Organization [facility] Address [address] [place] [address]- Care Team Providers Care Research And Development Chemist Name Role Phone Rob ACOSTA, Nahid Castanon Primary Care Physician Encounter [facility] Date(s): 03/22/23 - 04/26/[address] [address]- Attending Physician: Robin An MD Admitting Physician: Robin An MD Allergies, Adverse Reactions, Alerts Substance Reaction [...] 02/19/23 14:33:00 EST, Route to Pharmacy Electronically, [facility] 443[facility], 183, cm, 01/23/23 10:48:00 EST, Height, 103.4, kg, 12/19/22 11:22:00 EST, Dry Weight Start Date: 02/19/23 Status: Ordered clotrimazole 1% topical cream 1 application, Topically, 2 times a day, # 60 Gm, 0 Refills, Maintenance, 05/18/20 8:31:00 EDT, Cream, [facility]/pharmacy #[id number], 1 application Topically 2 times a day, 183, cm, 12/02/19 9:13:00 EDT, Height Start Date: 05/18/20 Status: Ordered diclofenac 1% topical gel 1 application, Topically, 4 times a day, PRN for pain, # 100 Gm, 2 Refills, Maintenance, 02/17/22 18:10:00 EST, Gel, [facility]/pharmacy #[id number], 183, cm, 02/01/21 10:10:00 EST, Height Start Date: 02/17/22 Stop Date: 05/18/22 Status: Ordered fluticasone 50 mcg/inh nasal spray See Instructions, USE 1 SPRAY IN EACH NOSTRIL TWICE A DAY, # 48 mL, 1 Refills, Maintenance, 01/24/23 8:14:00 EST, [facility] 26911, 90, USE 1 SPRAY IN EACH NOSTRIL [...] Maintenance,04/07/23 10:10:00 EST, Route to Pharmacy Electronically, [facility]/pharmacy #[id number], Partial fill upon patient request if the prescription is for a schedule II... Start Date: 04/07/23 Stop Date: 10/04/23 Status: Ordered ibuprofen 800 mg oral tablet 800 mg, 1, tablet, By Mouth, 3 times a day, PRN, # 270 tablet, Refills 1, Tot. Refills 1, Maintenance, Pain , Moderate, 12/19/22 11:49:00 EST, Route to Pharmacy Electronically, [facility]/pharmacy #[id number], Partial fill upon patient request if the prescription... Start Date: 12/19/22 Status: Ordered montelukast 10 mg oral tablet 10 mg, 1, tablet, By Mouth, Daily, # 30 tablet, Refills 3, Tot. Refills 3, Maintenance, 06/27/22 10:37:00 EDT, Route to Pharmacy Electronically, [facility]/pharmacy #[id number], Partial fill upon patient request [...] tablet, 0 Refills, Maintenance, 02/19/23 14:33:00 EST, [facility] [id number], 183, cm, 01/23/23 10:48:00 EST, Height, 103.4, [...] tongue, # 14 film, 0 Refills, Maintenance, 04/24/23 17:54:00 EDT, Film, [facility]/pharmacy #[id number], Partial fill upon patient request if the prescriptionis for a schedule II opioid drug., 1 film Sublingua... Start Date: 04/24/23 Stop Date: 05/01/23 Status: Ordered SUMAtriptan 25 mg oral tablet See Instructions, TAKE 1 TABLET BY MOUTH ONCE AT ONSET OF HEADACHE. MAY REPEAT IN 2 HOURS, # 12 tablet, 1 Refills, Maintenance, 02/17/22 18:10:00 EST, [facility]/pharmacy #[id number], 183, cm, 02/01/21 10:10:00 EST, Height Start Date: 02/17/22 Status: Ordered traZODone 50 mg oral tablet 1, tablet, By Mouth, Daily at bedtime, # 30 tablet, Refills 0, Maintenance, 02/19/23 14:33:00 EST, Route to Pharmacy Electronically, [facility] 67176, 183, cm, 01/23/23 10:48:00 EST, Height, 103.4, kg, 12/19/22 11:22:00 EST, Dry Weight Start Date: 02/19/23 Status: Ordered Ventolin HFA 108 mcg/inh inhalation aerosol with adapter 1 puffs, Inhalation, 4 times a day, PRN NEEDED FOR WHEEZE, # 18 each, 1 Refills, Maintenance, 04/17/23 17:53:00 EDT, [facility] 93434, 183, cm, 01/23/23 10:48:00 EST, Height, 103.4, kg, 12/19/22 11:22:00 EST, Dry Weight Start Date: 04/17/23 Status: Ordered Wellbutrin XL 150 mg/24 hours oral tablet, extended release 1 tablet = 150 mg, By Mouth, Every 24 hours, # 30 tablet, 1 Refills, Maintenance, 12/05/22 12:03:00EDT, ER Tablet, [id number], Partial fill upon patient request if the [...] Back Pain Scale: 22 on 05/21/14; initial [place]: 16 pm 05/21/14 Social History Social History Type Response Smoking Status Former smoker; Tobac co user in household: No entered on: 03/31/14 Sex Patient Care team information Care Team Personnel Name: Rob ACOSTA, Nahid Castanon Position: [facility] Physician - Primary Care Member Role: PCP Address: Address: [address] [place] [address]- Care Team Related Persons Name: SADI GILBERT Address: home [address] [place] [id number]
--- OUTSIDE RECORDS SUMMARY | 2024-01-01 12:11 | XMS_ITS | Continuity of Care Document ---
Author Organization [facility] Address [address] [place] [address]- Care Team Providers Care Auto Design Detailer Name Role Phone Nahid Rivas MD Primary Care Physician Encounter [facility] [place] Date(s): 07/19/22 - 08/18/[address] [address]- Allergies, Adverse Reactions, Alerts Substance Reaction Severity [...] 0 Refills, Maintenance, 05/18/20 8:31:00 EDT, Cream, [facility]/pharmacy #[id number], 1 application Topically 2 times a day, 183, cm, 12/02/19 9:13:00 EDT, Height Start Date: 05/18/20 Status: Ordered diclofenac 1% topical gel 1 application, Topically, 4 times a day, PRN for pain, # 100 Gm, 2 Refills, Maintenance, 02/17/22 18:10:00 EST, Gel, [facility]/pharmacy #[id number], 183, cm, 02/01/21 10:10:00 EST, Height Start Date: 02/17/22 Stop Date: 05/18/22 Status: Ordered Flonase 50 mcg/inh nasal spray 1 sprays, Nares, Both, 2 times a day, # 16 Gm, 5 Refills, Maintenance, 02/17/22 18:10:00 EST, [place], [facility]/pharmacy #[id number], Partial fill upon patient request if [...] 10/01/21 8:32:00 EDT, Route to Pharmacy Electronically, [facility]/pharmacy #[id number], Partial fill upon patient request if the prescription i... Start Date: 10/01/21 Status: Ordered montelukast 10 mg oral tablet 10 mg, 1, tablet, By Mouth, Daily, # 30 tablet, Refills 3, Tot. Refills 3, Maintenance, 06/27/22 10:37:00 EDT, Route to Pharmacy Electronically, [facility]/pharmacy #[id number], Partial fill upon patient request if [...] Refills, Maintenance, 07/12/22 12:59:00 EDT, ER Tablet, [facility]/pharmacy #[id number], Partial fill upon patient request if [...] Active Vitamin D deficiency Confirmed Active 1initial [place] Back Pain Scale: 22 on 05/21/14; initial [place]: 16 pm 05/21/14 Social History Social History Type Response Smoking Status Former smoker; Tobac co user in household: No entered on: 03/31/14 Sex Patient Care team information Care Team Personnel Name: Rob ACOSTA, Nahid Castanon Position: [facility] Physician - Primary Care Member Role: PCP Address: Address: [address] [place], [place] [id number]- Care Team Related Persons Name: SADI GILBERT Address: [address] [address]
--- OUTSIDE RECORDS SUMMARY | 2024-01-01 12:11 | XMS_ITS | Continuity of Care Document ---
Author Organization [facility] Address [address] [place] [address]- Care Team Providers Care Edge Blacker Name Role Phone Rob ACOSTA, Nahid Castanon Primary Care Physician [phone] Encounter [facility] Date(s): 04/17/23 - 05/17/[address] [address] Allergies, Adverse Reactions, Alerts [...] 02/19/23 14:33:00 EST, Route to Pharmacy Electronically, [facility], 183, cm, 01/23/23 10:48:00 EST, Height, 103.4, kg, 12/19/22 11:22:00 EST, Dry Weight Start Date: 02/19/23 Status: Ordered clotrimazole 1% topical cream 1 application, Topically, 2 times a day, # 60 Gm, 0 Refills, Maintenance, 05/18/20 8:31:00 EDT, Cream, [facility]/pharmacy #[id number], 1 application Topically 2 times a day, 183, cm, 12/02/19 9:13:00 EDT, Height Start Date: 05/18/20 Status: Ordered diclofenac 1% topical gel 1 application, Topically, 4 times a day, PRN for pain, # 100 Gm, 2 Refills, Maintenance, 02/17/22 18:10:00 EST, Gel, [facility]/pharmacy #[id number], 183, cm, 02/01/21 10:10:00 EST, Height Start Date: 02/17/22 Stop Date: 05/18/22 Status: Ordered fluticasone 50 mcg/inh nasal spray See Instructions, USE 1 SPRAY IN EACH NOSTRIL TWICE A DAY, # 48 mL, 1 Refills, Maintenance, 01/24/23 8:14:00 EST, [facility], 90, USE 1 SPRAY IN EACH NOSTRIL [...] EST, Route to Pharmacy Electronically, [facility]/pharmacy #[id number], Partial fill upon patient request if the prescription is for a schedule II... Start Date: 04/07/23 Stop Date: 10/04/23 Status: Ordered ibuprofen 800 mg oral tablet 800 mg, 1, tablet, By Mouth, 3 times a day, PRN, # 270 tablet, Refills 1, Tot. Refills 1, Maintenance, Pain , Moderate, 12/19/22 11:49:00 EST, Route to Pharmacy Electronically, [facility]/pharmacy #[id number], Partial fill upon patient request if the prescription... Start Date: 12/19/22 Status: Ordered montelukast 10 mg oral tablet 10 mg, 1, tablet, By Mouth, Daily, # 30 tablet, Refills 3, Tot. Refills 3, Maintenance, 06/27/22 10:37:00 EDT, Route to Pharmacy Electronically, [facility]/pharmacy #[id number], Partial fill upon patient request if [...] Refills, Maintenance, 02/19/23 14:33:00 EST, [facility], 183, cm, 01/23/23 10:48:00 EST, Height, 103.4, [...] # 14 film, 0 Refills, Hard Stop 05/18/23 12:01:00 EDT, 05/11/23 12:01:00 EDT, Film, [facility]/pharmacy #[id number], Partial fill upon patient request if the prescription is for a schedule I... Start Date: 05/11/23 Stop Date: 05/18/23 Status: Ordered Suboxone 8 mg-2 mg sublingual film 1 film, Sublingual, 2 times a day, dissolve under the tongue, # 14 film, 0 Refills, Maintenance, 05/18/23 12:01:00 EDT, Film, [facility]/pharmacy #[id number], Partial fill upon patient request if the prescriptionis for a schedule II opioid drug., 1 film Sublingua... Start Date: 05/18/23 Stop Date: 05/25/23 Status: Ordered SUMAtriptan 25 mg oral tablet See Instructions, TAKE 1 TABLET BY MOUTH ONCE AT ONSET OF HEADACHE. MAY REPEAT IN 2 HOURS, # 12 tablet, 1 Refills, Maintenance, 02/17/22 18:10:00 EST, [facility]/pharmacy #[id number], 183, cm, 02/01/21 10:10:00 EST, Height Start Date: 02/17/22 Status: Ordered traZODone 50 mg oral tablet 1, tablet, By Mouth, Daily at bedtime, # 30 tablet, Refills 0, Maintenance, 02/19/23 14:33:00 EST, Route to Pharmacy Electronically, [facility] STORE 03050, 183, cm, 01/23/23 10:48:00 EST, Height, 103.4, kg, 12/19/22 11:22:00 EST, Dry Weight Start Date: 02/19/23 Status: Ordered Ventolin HFA 108 mcg/inh inhalation aerosol with adapter 1 puffs, Inhalation, 4 times a day, PRN NEEDED FOR WHEEZE, # 18 each, 1 Refills, Maintenance, 04/17/23 17:53:00 EDT, [facility], 183, cm, 01/23/23 10:48:00 EST, Height, 103.4, kg, 12/19/22 11:22:00 EST, Dry Weight Start Date: 04/17/23 Status: Ordered Wellbutrin XL 150 mg/24 hours oral tablet, extended release 1 tablet = 150 mg, By Mouth, Every 24 hours, # 30 tablet, 1 Refills, Maintenance, 12/05/22 12:03:00EDT, ER Tablet, [facility]/pharmacy #[id number], Partial fill upon patient request if [...] Back Pain Scale: 22 on 05/21/14; initial [place]: 16 pm 05/21/14 Social History Social History Type Response Smoking Status Former smoker; Tobac co user in household: No entered on: 03/31/14 Sex Patient Care team information Care Team Personnel Name: Rob ACOSTA, Nahid Castanon Position: [facility] Physician - Primary Care Member Role: PCP Address: Address: [address] [place] [address]- Care Team Related Persons Name: SADI GILBERT Address: home [address] [place] [address]
--- OUTSIDE RECORDS SUMMARY | 2024-01-01 12:11 | XMS_ITS | Continuity of Care Document ---
Author Organization [facility] Address [address] [place] [address]- Care Team Providers Care Rug Cleaning Supervisor Name Role Phone Nahid Rivas MD Primary Care Physician [phone] Encounter [facility] Date(s): 07/16/20 - 08/15/[address] [address] Attending Physician: AdmLaura vega Admitting Physician: Admtr, [id number] Referring Physician: Admtr, [...] Gm, 5 Refills, Maintenance, 07/13/20 8:57:00 EDT, [place],[facility]/pharmacy #[id number], Partial fill upon patient request [...] 3 times a day, # 90 tablet, Refills 0, Tot. Refills 0, Maintenance, 07/13/20 9:02:00 EDT, Route to Pharmacy Electronically, [facility]/pharmacy #[id number], Partial fill upon patient request if the prescription is for a schedule II opi... Start Date: 07/13/20 Status: Ordered ipratropium nasal 21 mcg/inh spray 2 sprays, Nares, Both, 3 times a day, # 30 mL, 1 Refills, Acute 09/12/20 12:00:00 EDT, 07/13/20 8:58:00 EDT, [place], [facility]/pharmacy #[id number], Partial fill upon patient request if the prescription is for a schedule II opioid drug., 2 sprays Nares, Both 3 reinaldo... Start Date: 07/13/20 Stop Date: 09/12/20 Status: Ordered Neutral position wrist splints, medium, [...] sparingly, # 45 tablet, 5 Refills, Maintenance, 07/13/20 8:47:00 EDT, ER Tablet, [facility]/pharmacy #[id number], Partial fill upon patient request if the prescription is for a schedule II opioid drug., 1... Start Date: 07/13/20 Status: Ordered Problem List Condition Effective Dates Status Health Status Inform ant Back pain(Confirmed) Active Carpal tunnel syndrome, bilateral(Confirmed) Active Somnolence(Confirmed) Active Limitation due to disability(Confirmed) 1 Active Obesity(Confirmed) Active Type 2 diabetes mellitus(Confirmed) Active Vitamin D deficiency(Confirmed) Active 1initial [place] Back Pain Scale: 22 on 05/21/14; initial [place]: 16 pm 05/21/14 Social History Social History Type Response Smoking Status Former smoker; Tobac co user in household: No entered on: 03/31/14 Sex
--- OUTSIDE RECORDS SUMMARY | 2024-01-01 12:11 | XMS_ITS | Continuity of Care Document ---
Author Organization [facility] Address [address] [place] [address]- Care Team Providers Care Gynecological Assistant Name Role Phone Rob ACOSTA, Nahid Castanon Primary Care Physician Encounter [facility] Date(s): 01/23/23 - 03/02/[address] [address]- Attending Physician: Robin An MD Admitting Physician: [...] 02/19/23 14:33:00 EST, Route to Pharmacy Electronically, [facility] [id number], 183, cm, 01/23/23 10:48:00 EST, Height, 103.4, kg, 12/19/22 11:22:00 EST, Dry Weight Start Date: 02/19/23 Status: Ordered clotrimazole 1% topical cream 1 application, Topically, 2 times a day, # 60 Gm, 0 Refills, Maintenance, 05/18/20 8:31:00 EDT, Cream, [facility]/pharmacy #[id number], 1 application Topically 2 times a day, 183, cm, 12/02/19 9:13:00 EDT, Height Start Date: 05/18/20 Status: Ordered diclofenac 1% topical gel 1 application, Topically, 4 times a day, PRN for pain, # 100 Gm, 2 Refills, Maintenance, 02/17/22 18:10:00 EST, Gel, [facility]/pharmacy #[id number], 183, cm, 02/01/21 10:10:00 EST, Height Start Date: 02/17/22 Stop Date: 05/18/22 Status: Ordered fluticasone 50 mcg/inh nasal spray See Instructions, USE 1 SPRAY IN EACH NOSTRIL TWICE A DAY, # 48 mL, 1 Refills, Maintenance, 01/24/23 8:14:00 EST, [facility] 89753, 90, USE 1 SPRAY IN EACH NOSTRIL [...] Status: Ordered gabapentin 300 mg oral capsule 300 mg, 1, capsule, By Mouth, 3 times a day, Please fill now--pt was on higher dose temporarily, # 90 capsule, Refills 0, Tot. Refills 0, Maintenance, 02/08/23 17:15:00 EST, Route to Pharmacy Electronically, [facility]/pharmacy #[id number], Partial fill upon patie... Start Date: 02/08/23 Status: Ordered ibuprofen 800 mg oral tablet 800 mg, 1, tablet, By Mouth, 3 times a day, PRN, # 270 tablet, Refills 1, Tot. Refills 1, Maintenance, Pain , Moderate, 12/19/22 11:49:00 EST, Route to [facility], [id number], Partial [...] Refills, Maintenance, 02/19/23 14:33:00 EST, [facility], 183, cm, 01/23/23 10:48:00 EST, Height, 103.4, [...] tongue, # 14 film, 0 Refills, Maintenance, 02/28/23 15:48:00 EST, Film, [facility]/pharmacy #[id number], Partial fill upon patient request if the prescriptionis for a schedule II opioid drug., 1 film Sublingua... Start Date: 02/28/23 Stop Date: 03/07/23 Status: Ordered SUMAtriptan 25 mg oral tablet See Instructions, TAKE 1 TABLET BY MOUTH ONCE AT ONSET OF HEADACHE. MAY REPEAT IN 2 HOURS, # 12 tablet, 1 Refills, Maintenance, 02/17/22 18:10:00 EST, [facility]/pharmacy #[id number], 183, cm, 02/01/21 10:10:00 EST, Height Start Date: 02/17/22 Status: Ordered traZODone 50 mg oral tablet 1, tablet, By Mouth, Daily at bedtime, # 30 tablet, Refills 0, Maintenance, 02/19/23 14:33:00 EST, Route to Pharmacy Electronically, [facility] 91563, 183, cm, 01/23/23 10:48:00 EST, Height, 103.4, kg, 12/19/22 11:22:00 EST, Dry Weight Start Date: 02/19/23 Status: Ordered Wellbutrin XL 150 mg/24 hours oral tablet, extended release 1 tablet = 150 mg, By Mouth, Every 24 hours, # 30 tablet, 1 Refills, Maintenance, 12/05/22 12:03:00EDT, ER Tablet, [facility]/pharmacy #[id number], Partial fill upon patient [...] Back Pain Scale: 22 on 05/21/14; initial [place]: 16 pm 05/21/14 Social History Social History Type Response Smoking Status Former smoker; Tobac co user in household: No entered on: 03/31/14 Sex Patient Care team information Care Team Personnel Name: Rob ACOSTA, Nahid Castanon Position: [facility] Physician - Primary Care Member Role: PCP Address: Address: [address] [place] [address]- Care Team Related Persons Name: SADI GILBERT Address: home [address] [place] [address]
--- OUTSIDE RECORDS SUMMARY | 2024-01-01 12:11 | XMS_ITS | Continuity of Care Document ---
Author Organization [facility] Address [address] [place] [address]- Care Team Providers Care Desk Interviewer Name Role Phone Nahid Rivas MD Primary Care Physician [phone] Encounter [facility] Date(s): 11/17/23 - 12/17/[address] [address]- Allergies, Adverse Reactions, Alerts Substance Reaction Severity [...] tablet, Refills 0, Tot. Refills 0, Maintenance, 11/18/23 10:19:00 EDT, Route to Pharmacy Electronically, [facility]/pharmacy #[id number], 183, cm, 01/23/23 10:48:00 EST, Height, 103.4, kg, 12/19/22 11:22:00 EST, Dry Weight Start Date: 11/18/23 Status: Ordered clotrimazole 1% topical cream See Instructions, APPLY TO AFFECTED AREA TWICE A DAY, # 60 Gm, 0 Refills, Maintenance, 09/22/23 22:38:00 EDT, [facility] STORE [id number], 30, APPLY TO AFFECTED AREA TWICE A DAY, 183, cm, 01/23/23 10:48:00 EST, Height, 103.4, kg, 12/19/22 11:22:00 EST, Dry Weight Start Date: 09/22/23 Status: Ordered diclofenac 1% topical gel 1 application, Topically, 4 times a day, PRN for pain, # 100 Gm, 2 Refills, Maintenance, 02/17/22 18:10:00 EST, [facility], cm, 02/01/21 10:10:00 EST, Height Start Date: 02/17/22 Stop Date: 05/18/22 Status: Ordered fluticasone 50 mcg/inh nasal spray See Instructions, USE 1 SPRAY IN EACH NOSTRIL TWICE A DAY, # 48 mL, 1 Refills, Maintenance, 01/24/23 8:14:00 EST, [id number], 90, USE 1 SPRAY IN EACH NOSTRIL [...] capsule, Refills 5, Tot. Refills 5,Hard Stop 04/01/24 10:10:00 EST, 10/04/23 10:10:00 EDT, Route to Pharmacy Electronically, [facility]/pharmacy #[id number], Partial fill upon patient request if the... Start Date: 10/04/23 Stop Date: 04/01/24 Status: Ordered gabapentin 300 mg oral capsule 600 mg, 2, capsule, By Mouth, 3 times a day, # 180 capsule, Refills 0, Tot. Refills 0, Maintenance,04/01/24 10:10:00 EST, Route to Pharmacy Electronically, [facility]/pharmacy #[id number], Partial fill upon patient request if the prescription is for a schedule II... Start Date: 04/01/24 Status: Ordered ibuprofen 800 mg oral tablet 1, tablet, By Mouth, 3 times a day, PRN, # 90 tablet, Refills 0, Tot. Refills 0, Maintenance, NEEDED FOR PAIN, 11/18/23 10:19:00 EDT, Route to Pharmacy Electronically, [facility]/pharmacy #[id number], 183, cm,01/23/23 10:48:00 EST, Height, 103.4, kg, 12/19/22... Start Date: 11/18/23 Status: Ordered montelukast 10 mg oral tablet 10 mg, 1, tablet, By Mouth, Daily, # 30 tablet, Refills 3, Tot. Refills 3, Maintenance, 06/27/22 10:37:00 EDT, Route to Pharmacy Electronically, [facility]/pharmacy #[id number], Partial fill upon patient request [...] tablet, 0 Refills, Maintenance, 02/19/23 14:33:00 EST, [facility] STORE 55040, 183, cm, 01/23/23 10:48:00 EST, Height, 103.4, kg, 12/19/22 11:22:00 EST, Dry Weight Start Date: 02/19/23 Status: Ordered Splint See Instructions, # 1 each, Maintenance, soft left wrist splint for Dx: wrist tendonitis, 12/01/14 8:41:15, Compound Start Date: 12/01/14 Status: Ordered Suboxone 8 mg-2 mg sublingual film 1 film, Sublingual, 2 times a day, dissolve under the tongue Please note: No more refills will be provided until you complete required labs and schedule a follow-up appointment with the Alex Bills Suboxone RN, # 14 film, 0 Refills, Maintenance,... Start Date: 11/18/23 Status: Ordered SUMAtriptan 25 mg oral tablet See Instructions, TAKE 1 TABLET BY MOUTH ONCE AT ONSET OF HEADACHE. MAY REPEAT IN 2 HOURS, # 12 tablet, 1 Refills, Maintenance, 02/17/22 18:10:00 EST, [facility]/pharmacy #[id number], 183, cm, 02/01/21 10:10:00 EST, Height Start Date: 02/17/22 Status: Ordered traZODone 50 mg oral tablet 1, tablet, By Mouth, Daily at bedtime, # 30 tablet, Refills 0, Tot. Refills 0, Maintenance, 11/18/23 10:19:00 EDT, Route to Pharmacy Electronically, [facility]/pharmacy #[id number], 183, cm, 01/23/23 10:48:00 EST, Height, 103.4, kg, 12/19/22 11:22:00 EST, Dry Weight Start Date: 11/18/23 Status: Ordered Ventolin HFA 108 mcg/inh inhalation aerosol with adapter 1 puffs, Inhalation, 4 times a day, PRN NEEDED FOR WHEEZE, # 18 each, 1 Refills, Maintenance, 04/17/23 17:53:00 EDT, [facility], 183, cm, 01/23/23 10:48:00 EST, Height, 103.4, kg, 12/19/22 11:22:00 EST, Dry Weight Start Date: 04/17/23 Status: Ordered Wellbutrin XL 150 mg/24 hours oral tablet, extended release 1 tablet = 150 mg, By Mouth, Every 24 hours, # 30 tablet, 1 Refills, Maintenance, 12/05/22 12:03:00EDT, ER Tablet, [facility]/pharmacy #[id number], Partial fill upon patient request if the [...] Back Pain Scale: 22 on 05/21/14; initial [place]: 16 pm 05/21/14 Social History Social History Type Response Smoking Status Former smoker; Tobac co user in household: No entered on: 03/31/14 Sex Patient Care team information Care Team Personnel Name: Rob ACOSTA, Nahid Castanon Position: [facility] Physician - Primary Care Member Role: PCP Address: Address: [address] [place] [address]- Care Team Related Persons Name: SADI GILBERT Address: home [address] [place] [address]
--- OUTSIDE RECORDS SUMMARY | 2024-01-01 12:11 | XMS_ITS | Continuity of Care Document ---
Author Organization [facility] Address [address] [place] [address]- Care Team Providers Care Fourth Hand Name Role Phone Rob ACOSTA, Nahid Castanon Primary Care Physician Encounter [facility] Date(s): 02/01/23 - 03/03/[address] [address] Allergies, Adverse Reactions, Alerts Substance Reaction [...] 02/19/23 14:33:00 EST, Route to Pharmacy Electronically, [facility], 183, cm, 01/23/23 10:48:00 EST, Height, 103.4, kg, 12/19/22 11:22:00 EST, Dry Weight Start Date: 02/19/23 Status: Ordered clotrimazole 1% topical cream 1 application, Topically, 2 times a day, # 60 Gm, 0 Refills, Maintenance, 05/18/20 8:31:00 EDT, Cream, [facility]/pharmacy #[id number], 1 application Topically 2 times a day, 183, cm, 12/02/19 9:13:00 EDT, Height Start Date: 05/18/20 Status: Ordered diclofenac 1% topical gel 1 application, Topically, 4 times a day, PRN for pain, # 100 Gm, 2 Refills, Maintenance, 02/17/22 18:10:00 EST, Gel, [facility]/pharmacy #[id number], 183, cm, 02/01/21 10:10:00 EST, Height Start Date: 02/17/22 Stop Date: 05/18/22 Status: Ordered fluticasone 50 mcg/inh nasal spray See Instructions, USE 1 SPRAY IN EACH NOSTRIL TWICE A DAY, # 48 mL, 1 Refills, Maintenance, 01/24/23 8:14:00 EST, [facility] 100[facility], 90, USE 1 SPRAY IN EACH NOSTRIL [...] 02/08/23 17:15:00 EST, Route to Pharmacy Electronically, [facility]/pharmacy #[id number], Partial fill upon patie... Start Date: 02/08/23 Status: Ordered ibuprofen 800 mg oral tablet 800 mg, 1, tablet, By Mouth, 3 times a day, PRN, # 270 tablet, Refills 1, Tot. Refills 1, Maintenance, Pain , Moderate, 12/19/22 11:49:00 EST, Route to Pharmacy Electronically, [facility]/pharmacy #[id number], Partial fill upon patient request if the prescription... Start Date: 12/19/22 Status: Ordered montelukast 10 mg oral tablet 10 mg, 1, tablet, By Mouth, Daily, # 30 tablet, Refills 3, Tot. Refills 3, Maintenance, 06/27/22 10:37:00 EDT, Route to Pharmacy Electronically, [facility]/pharmacy #[id number], Partial fill upon patient [...] Refills, Maintenance, 02/19/23 14:33:00 EST, [facility], 183, cm, 01/23/23 10:48:00 EST, Height, 103.4, [...] 0 Refills, Maintenance, 02/28/23 15:48:00 EST, Film, [facility]/pharmacy #[id number], Partial fill upon patient request if the prescriptionis for a schedule II opioid drug., 1 film Sublingua... Start Date: 02/28/23 Stop Date: 03/07/23 Status: Ordered SUMAtriptan 25 mg oral tablet See Instructions, TAKE 1 TABLET BY MOUTH ONCE AT ONSET OF HEADACHE. MAY REPEAT IN 2 HOURS, # 12 tablet, 1 Refills, Maintenance, 02/17/22 18:10:00 EST, [facility]/pharmacy #[id number], 183, cm, 02/01/21 10:10:00 EST, Height Start Date: 02/17/22 Status: Ordered traZODone 50 mg oral tablet 1, tablet, By Mouth, Daily at bedtime, # 30 tablet, Refills 0, Maintenance, 02/19/23 14:33:00 EST, Route to Pharmacy Electronically, [facility] 785[facility], 183, cm, 01/23/23 10:48:00 EST, Height, 103.4, kg, 12/19/22 11:22:00 EST, Dry Weight Start Date: 02/19/23 Status: Ordered Wellbutrin XL 150 mg/24 hours oral tablet, extended release 1 tablet = 150 mg, By Mouth, Every 24 hours, # 30 tablet, 1 Refills, Maintenance, 12/05/22 12:03:00EDT, ER Tablet, [facility]/pharmacy #[id number], Partial fill upon patient request if the prescription is for a schedule II opioid drug., 183, cm, 12/05/22 11:16:00... Start Date: 12/05/22 Status: Ordered Problem List Condition Confirmation Course Effective Dates Status [facility] at[facility] Informant Back pain Confirmed Active Carpal tunnel syndrome, bilateral Confirmed Active Somnolence Confirmed Active Limitation due to disability 1 Confirmed Active Migraine Confirmed Active Obesity Confirmed Active Opioid use disorder Confirmed Active Severe major depression, single episode, without psychotic features Confirmed Active Type 2 diabetes mellitus Confirmed Active Vitamin D deficiency Confirmed Active 1initial [place] Back Pain Scale: 22 on 05/21/14; initial [place]: 16 pm 05/21/14 Social History Social History Type Response Smoking Status Former smoker; Tobac co user in household: No entered on: 03/31/14 Sex Patient Care team information Care Team Personnel Name: Rob ACOSTA, Nahid Castanon Position: S Physician - Primary Care Member Role: PCP Address: Address: [address] [place] [address]- Care Team Related Persons Name: SADI GILBERT Address: home [address] [place] [address]
--- OUTSIDE RECORDS SUMMARY | 2024-01-01 12:11 | XMS_ITS | Continuity of Care Document ---
Author Organization [facility] Address [address] [place] [address]- Care Team Providers Care Classroom Coordinator Name Role Phone Nahid Rivas MD Primary Care Physician [phone] [id number] Date(s[facility] 07/04/20 - 08/09/[address] [address]- Attending Physician: Nahid Rivas MD Admitting Physician: [...] Gm, 5 Refills, Maintenance, 07/13/20 8:57:00 EDT, [place],[facility]/pharmacy #[id number], Partial fill upon patient request [...] 07/13/20 9:02:00 EDT, Route to Pharmacy Electronically, [facility]/pharmacy #[id number], Partial fill upon patient request if the prescription is for a schedule II opi... Start Date: 07/13/20 Status: Ordered ipratropium nasal 21 mcg/inh spray 2 sprays, Nares, Both, 3 times a day, # 30 mL, 1 Refills, Acute 09/12/20 12:00:00 EDT, 07/13/20 8:58:00 EDT, [place], [facility]/pharmacy #[id number], Partial fill upon patient request [...] Refills, Maintenance, 07/13/20 8:47:00 EDT, ER Tablet, [facility]/pharmacy #[id number], Partial fill upon patient request if the prescription is for a schedule II opioid drug., 1... Start Date: 07/13/20 Status: Ordered Problem List Condition Effective Dates Status Health Status Inform ant Back pain(Confirmed) Active Carpal tunnel syndrome, bilateral(Confirmed) Active Somnolence(Confirmed) Active Limitation due to disability(Confirmed) 1 Active Obesity(Confirmed) Active Type 2 diabetes mellitus(Confirmed) Active Vitamin D deficiency(Confirmed) Active 1initial [place] Back Pain Scale: 22 on 05/21/14; initial [place]: 16 pm 05/21/14 Social History Social History Type Response Smoking Status Former smoker; Tobac co user in household: No entered on: 03/31/14 Sex
--- OUTSIDE RECORDS SUMMARY | 2024-01-01 12:11 | XMS_ITS | Continuity of Care Document ---
Author Organization [facility] Address [address] [place] [address]- Care Team Providers Care Title I Paraprofessional Name Role Phone Rob ACOSTA, Nahid Castanon Primary Care Physician Encounter [facility] Date(s): 11/24/23 - 12/24/[address] [address]- Encounter Type: Triage Allergies, Adverse Reactions, Alerts Substance Criticality Severity Reaction Reaction Severity Status aspirin 1 Active Tylenol [...] avoid pressure to ulnar nerve, 06/27/22 10:40:00 AM EDT, Supply Start Date: 06/27/22 Status: Ordered Quantity: 1.0 Unit: each Repeat number: 1 Indication: Polyneuropathy, unspecified bilateral neutral position wrist splints bilateral neutral position wrist splints, See Instructions, # 1 each, Refills 0, Tot. Refills 0, Maintenance, wear daily at night, 06/27/22 10:38:00 AM EDT, Supply, 183, cm, 06/27/22 10:11:00 EDT, Height Start Date: 06/27/22 Status: Ordered Quantity: 1.0 Unit: each Repeat number: 1 Indication: Carpal tunnel syndrome, bilateral upper limbs cloNIDine 0.1 mg oral tablet 1, tablet, By Mouth, 4 times a day, # 120 tablet, Refills 0, Tot. Refills 0, Maintenance, 11/18/23 10:19:00 AM EDT, [id number] 183, cm, 01/23/23 10:48:00 EST, Height, 103.4, kg, 12/19/22 11:22:00 EST, Dry Weight Start Date: 11/18/23 Status: Ordered Quantity: 120.0 Unit: tablet Repeat number: 1 clotrimazole 1% topical cream See Instructions, APPLY TO AFFECTED AREA TWICE A DAY, # 60 Gm, 0 Refills, Maintenance, 09/22/23 10:38:00 PM EDT, [facility] STORE 94244, 30, APPLY TO AFFECTED AREA TWICE A DAY, 183, cm, 01/23/23 10:48:00 EST, Height, 103.4, kg, 12/19/22 11:22:00 EST, Dry Weight Start Date: 09/22/23 Status: Ordered Quantity: 60.0 Unit: g Repeat number: 1 diclofenac 1% topical gel 1 application, Topically, 4 times a day, PRN for pain, # 100 Gm, 2 Refills, Maintenance, 02/17/22 6:10:00 PM EST, Gel, [facility]/pharmacy #[id number], 183, cm, 02/01/21 10:10:00 EST, Height Start Date: 02/17/22 Stop Date: 05/18/22 Status: Ordered Quantity: 100.0 Unit: g Repeat number: 3 fluticasone 50 mcg/inh nasal spray See Instructions, USE 1 SPRAY IN EACH NOSTRIL TWICE A DAY, # 48 mL, 1 Refills, Maintenance, 01/24/23 8:14:00 AM EST, [facility] 34[facility], 90, USE 1 SPRAY IN EACH NOSTRIL TWICE A DAY, 183, cm, 01/23/23 10:48:00 EST, Height, 103.4, kg, 12/19/22 11:22:00 EST, Dry Weight Start Date: 01/24/23 Status: Ordered Quantity: 48.0 Unit: mL Repeat number: 1 Freestyle Lite Lancets See Instructions, # 100 each, Refills 5, Tot. Refills 5, Maintenance, For Type 2 Diabetes, check fasting sugars daily, 03/31/14 10:03:28 AM EST, Compound Start Date: 03/31/14 Stop Date: 09/27/14 Status: Ordered Quantity: 100.0 Unit: each Repeat number: 6 Freestyle Lite Monitor See Instructions, # 1 each, Maintenance, use as directed for Type 2 Diabetes Mellitus, 03/31/14 10:03:21 AM EST, Compound Start Date: 03/31/14 Stop Date: 04/30/14 Status: Ordered Quantity: 1.0 Unit: each Repeat number: 1 Freestyle Lite Test Strips See Instructions, # 100 each, Refills 5, Tot. Refills 5, Maintenance, for T2 Diabetes, check fasting sugars daily, 04/17/23 5:56:00 PM EDT, Compound, 183, cm, 01/23/23 10:48:00 EST, Height, 103.4, kg,12/19/22 11:22:00 EST, Dry Weight Start Date: 04/17/23 Stop Date: 10/14/23 Status: Ordered Quantity: 100.0 Unit: each Repeat number: 6 gabapentin 300 mg oral capsule 600 mg, 2, capsule, By Mouth, 3 times a day, for 30 days, # 180 capsule, Refills 5, Tot. Refills 5,Hard Stop 04/01/24 10:10:00 AM EST, 10/04/23 10:10:00 AM EDT, Route to Pharmacy Electronically, [facility]/pharmacy #[id number], Partial fill upon patient request if the prescription is for a schedule II opioid drug., 183, cm, 01/23/23 10:48:00 EST, Height, 103.4, kg, 12/19/22 11:22:00 EST, Dry Weight Start Date: 10/04/23 Stop Date: 04/01/24 Status: Ordered Quantity: 180.0 Unit: capsule Repeat number: 6 Indication: Dorsalgia, unspecified gabapentin 300 mg oral capsule 600 mg, 2, capsule, By Mouth, 3 times a day, # 180 capsule, Refills 0, Tot. Refills 0, Maintenance,04/01/24 10:10:00 AM EST, Route to Pharmacy Electronically, [facility]/pharmacy #[id number], Partial fill upon patient request if the prescription is for a schedule II opioid drug., 183, cm, 01/23/23 10:48:00 EST, Height, 103.4, kg, 12/19/22 11:22:00 EST, Dry Weight Start Date: 04/01/24 Status: Ordered Quantity: 180.0 Unit: capsule Repeat number: 1 Indication: Dorsalgia, unspecified ibuprofen 800 mg oral tablet 1, tablet, By Mouth, 3 times a day, PRN, # 90 tablet, Refills 0, Tot. Refills 0, Maintenance, NEEDED FOR PAIN, 11/18/23 10:19:00 AM EDT, Route to Pharmacy Electronically, [facility]/pharmacy #[id number], 183, cm, 01/23/23 10:48:00 EST, Height, 103.4, kg, 12/19/22 11:22:00 EST, Dry Weight Start Date: 11/18/23 Status: Ordered Quantity: 90.0 Unit: tablet Repeat number: 1 montelukast 10 mg oral tablet 10 mg, 1, tablet, By Mouth, Daily, # 30 tablet, Refills 3, Tot. Refills 3, Maintenance, 06/27/22 10:37:00 AM EDT, Route to Pharmacy Electronically, [facility]/pharmacy #[id number], Partial fill upon patient request if the prescription is for a schedule II opioid drug., 183, cm, 06/27/22 10:11:00 EDT, Height Start Date: 06/27/22 Status: Ordered Quantity: 30.0 Unit: tablet Repeat number: 4 Neutral position wrist splints, medium, bilateral Neutral position wrist splints, medium, bilateral, See Instructions, # 1 each, Refills 0, Tot. Refills 0, Maintenance, Wear overnight daily, 03/09/20 4:02:00 PM EST, Supply Start Date: 03/09/20 Status: Ordered Quantity: 1.0 Unit: each Repeat number: 1 Indication: Carpal tunnel syndrome, bilateral upper limbs rOPINIRole 0.25 mg oral tablet 1 tablet, By Mouth, 3 times a day, # 90 tablet, 0 Refills, Maintenance, 02/19/23 2:33:00 PM EST, [facility] 183, cm, 01/23/23 10:48:00 EST, Height, 103.4, kg, 12/19/22 11:22:00 EST, Dry Weight Start Date: 02/19/23 Status: Ordered Quantity: 90.0 Unit: tablet Repeat number: 1 Splint See Instructions, # 1 each, Maintenance, soft left wrist splint for Dx: wrist tendonitis, 12/01/14 8:41:15 AM EDT, Compound Start Date: 12/01/14 Status: Ordered Quantity: 1.0 Unit: each Repeat number: 1 Suboxone 8 mg-2 mg sublingual film 1 film, Sublingual, 2 times a day, dissolve under the tongue Please note: No more refills will be provided until you complete required labs and schedule a follow-up appointment with the Alex Bills Suboxone RN, # 14 film, 0 Refills, Maintenance, 11/18/23 10:19:00 AM EDT, Film, [facility]/pharmacy #[id number], Partial fill upon patient request if the prescription is for a schedule II opioid drug., 1 film Sublingual 2 times a day,Instr:dissolve under the tongue; Please note: No more refills will be provided until you complete required labs and schedule a follow-up appointment with the Alex CohenRN, 183, cm, 01/23/23 10:48:00 EST, Height, 103.4, kg, 12/19/22 11:22:00 EST, Dry Weight Start Date: 11/18/23 Status: Ordered Quantity: 14.0 Unit: film Repeat number: 1 Indication: Opioid use, unspecified, uncomplicated SUMAtriptan 25 mg oral tablet See Instructions, TAKE 1 TABLET BY MOUTH ONCE AT ONSET OF HEADACHE. MAY REPEAT IN 2 HOURS, # 12 tablet, 1 Refills, Maintenance, 02/17/22 6:10:00 PM EST, [facility], 183, cm, 02/01/21 10:10:00 EST, Height Start Date: 02/17/22 Status: Ordered Quantity: 12.0 Unit: tablet Repeat number: 2 traZODone 50 mg oral tablet 1, tablet, By Mouth, Daily at bedtime, # 30 tablet, Refills 0, Tot. Refills 0, Maintenance, 11/18/23 10:19:00 AM EDT, Route to Pharmacy Electronically, [id number], 183, cm, 01/23/23 10:48:00 EST, Height, 103.4, kg, 12/19/22 11:22:00 EST, Dry Weight Start Date: 11/18/23 Status: Ordered Quantity: 30.0 Unit: tablet Repeat number: 1 Ventolin HFA 108 mcg/inh inhalation aerosol with adapter 1 puffs, Inhalation, 4 times a day, PRN NEEDED FOR WHEEZE, # 18 each, 1 Refills, Maintenance, 04/17/23 5:53:00 PM EDT, [facility] [id number], 183, cm, 01/23/23 10:48:00 EST, Height, 103.4, kg, 12/19/22 11:22:00 EST, Dry Weight Start Date: 04/17/23 Status: Ordered Quantity: 18.0 Unit: each Repeat number: 1 Wellbutrin XL 150 mg/24 hours oral tablet, extended release 1 tablet = 150 mg, By Mouth, Every 24 hours, # 30 tablet, 1 Refills, Maintenance, 12/05/22 12:03:00PM EDT, ER Tablet, [facility]/pharmacy #[id number], Partial fill upon patient request if the prescription is fora schedule II opioid drug., 183, cm, 12/05/22 11:16:00 EDT, Height, 104.2, kg, 12/05/22 11:16:00 EDT, Dry Weight Start Date: 12/05/22 Status: Ordered Quantity: 30.0 Unit: tablet Repeat number: 2 Problem List Condition Confirmation Course Effective Dates [...] Active Vitamin D deficiency Confirmed Active 1initial [place] Back Pain Scale: 22 on 05/21/14; initial [place]: 16 pm 05/21/14 Social History Social History Type Response Smoking Status Former smoker; Tobac co user in household: No entered on: 03/31/14 Sex Sex Representation Male (finding) Patient Care team information Care Team Personnel Name: Nahid Rivas MD Position: S Physician - Primary Care Member Role: PCP Address: [address] [place] [id number]- [place] [employer]: Care Team Related Persons Name: SADI GILBERT Insurance Providers Guarantor name: LYN PARMAR [facility] Plan Information #: 1 Payer: SELF PAY INSURANCE Member Number: NA Policy Number: NA Group Number: NA
--- OUTSIDE RECORDS SUMMARY | 2024-01-01 12:11 | XMS_ITS | Continuity of Care Document ---
Author Organization [facility] Address [address] [place] [address]- Care Team Providers Care Waxer Operator Name Role Phone Nahid Rivas MD Primary Care Physician Encounter [facility] Date(s): 12/12/22 - 02/09/[address] [address] Attending Physician: Mandi Gupta MD Admitting Physician: Mandi Gupta MD Referring Physician: Mandi Gupta MD Allergies, Adverse Reactions, Alerts Substance Reaction [...] Status: Ordered cloNIDine 0.1 mg oral tablet 0.1 mg, 1, tablet, By Mouth, 4 times a day, # 120 tablet, Refills 0, Tot. Refills 0, Maintenance, 01/23/23 12:19:00 EST, [id number], Partial fill upon patient request if the prescription is for a schedule II o... Start Date: 01/23/23 Status: Ordered clotrimazole 1% topical cream 1 application, Topically, 2 times a day, # 60 Gm, 0 Refills, Maintenance, 05/18/20 8:31:00 EDT, Cream, [id number], 1 application Topically 2 times a day, 183, cm, 12/02/19 9:13:00 EDT, Height Start Date: 05/18/20 Status: Ordered diclofenac 1% topical gel 1 application, Topically, 4 times a day, PRN for pain, # 100 Gm, 2 Refills, Maintenance, 02/17/22 18:10:00 EST, Gel, [id number], 183, cm, 02/01/21 10:10:00 EST, Height Start Date: 02/17/22 Stop Date: 05/18/22 Status: Ordered fluticasone 50 mcg/inh nasal spray See Instructions, USE 1 SPRAY IN EACH NOSTRIL TWICE A DAY, # 48 mL, 1 Refills, Maintenance, 01/24/23 8:14:00 EST, [facility] STORE [id number], 90, USE 1 SPRAY IN EACH NOSTRIL [...] 02/08/23 17:15:00 EST, Route to Pharmacy Electronically, [id number], Partial fill upon patie... Start Date: [...] Ordered rOPINIRole 0.25 mg oral tablet 1 tablet = 0.25 mg, By Mouth, 3 times a day, # 90 tablet, 0 Refills, Maintenance, 01/23/23 12:20:00EST, Tablet, [id number], Partial fill upon patient request if the prescription is for a schedule II opioid drug., 183, cm, 01/23/23 10:48:00 ES... Start Date: 01/23/23 Status: Ordered Splint See Instructions, # 1 each, Maintenance, soft left wrist splint for Dx: wrist tendonitis, 12/01/14 8:41:15, Compound Start Date: 12/01/14 Status: Ordered Suboxone 8 mg-2 mg sublingual film 1 film, Sublingual, 2 times a day, dissolve under the tongue, # 14 film, 0 Refills, Maintenance, 02/09/23 12:15:00 EST, Film, [facility]/pharmacy #[id number], Partial fill upon patient request if the prescriptionis for a schedule II opioid drug., 1 film Sublingua... Start Date: 02/09/23 Stop Date: 02/16/23 Status: Ordered SUMAtriptan 25 mg oral tablet See Instructions, TAKE 1 TABLET BY MOUTH ONCE AT ONSET OF HEADACHE. MAY REPEAT IN 2 HOURS, # 12 tablet, 1 Refills, Maintenance, 02/17/22 18:10:00 EST, [id number], 183, cm, 02/01/21 10:10:00 EST, Height Start Date: 02/17/22 Status: Ordered traZODone 50 mg oral tablet 50 mg, 1, tablet, By Mouth, Daily at bedtime, # 30 tablet, Refills 0, Tot. Refills 0, Maintenance, 01/23/23 12:20:00 EST, Route to Pharmacy Electronically, [id number], Partial fill upon patient request if the prescription is for a schedule II... Start Date: 01/23/23 Status: Ordered Wellbutrin XL 150 mg/24 hours oral tablet, extended release 1 tablet = 150 mg, By Mouth, Every 24 hours, # 30 tablet, 1 Refills, Maintenance, 12/05/22 12:03:00EDT, ER Tablet, [id number], Partial fill upon [...] D deficiency Confirmed Active 1initial [place] Back Pain Scale: 22 on 05/21/14; initial [place]: 16 pm 05/21/14 Social History Social History Type Response Smoking Status Former smoker; Tobac co user in household: No entered on: 03/31/14 Sex Patient Care team information Care Team Personnel Name: Rob ACOSTA, Nahid Castanon Position: [facility] Physician - Primary Care Member Role: PCP Address: Address: [address] [place] [address]- Care Team Related Persons Name: SADI GILBERT Address: home [address] [place] [id number]
--- OUTSIDE RECORDS SUMMARY | 2024-01-01 12:11 | XMS_ITS | Continuity of Care Document ---
Author Organization [facility] Address [address] [place] [address]- Care Team Providers Care Sawmill Moulder Operator Name Role Phone Rob ACOSTA, Nahid Castanon Primary Care Physician Encounter [facility] Date(s): 04/17/23 - 05/17/[address] [address] Allergies, Adverse Reactions, Alerts Substance [...] 02/19/23 14:33:00 EST, Route to Pharmacy Electronically, [email or web address] STORE [id number], 183, cm, 01/23/23 10:48:00 EST, Height, 103.4, kg, 12/19/22 11:22:00 EST, Dry Weight Start Date: 02/19/23 Status: Ordered clotrimazole 1% topical cream 1 application, Topically, 2 times a day, # 60 Gm, 0 Refills, Maintenance, 05/18/20 8:31:00 EDT, Cream, [facility]/pharmacy #[id number], 1 application Topically 2 times a day, 183, cm, 12/02/19 9:13:00 EDT, Height Start Date: 05/18/20 Status: Ordered diclofenac 1% topical gel 1 application, Topically, 4 times a day, PRN for pain, # 100 Gm, 2 Refills, Maintenance, 02/17/22 18:10:00 EST, Gel, [facility]/pharmacy #[id number], 183, cm, 02/01/21 10:10:00 EST, Height Start Date: 02/17/22 Stop Date: 05/18/22 Status: Ordered fluticasone 50 mcg/inh nasal spray See Instructions, USE 1 SPRAY IN EACH NOSTRIL TWICE A DAY, # 48 mL, 1 Refills, Maintenance, 01/24/23 8:14:00 EST, [email or web address] STORE [id number], 90, USE 1 SPRAY IN EACH NOSTRIL [...] Maintenance,04/07/23 10:10:00 EST, Route to Pharmacy Electronically, [facility]/pharmacy #[id number], Partial fill upon patient request if the prescription is for a schedule II... Start Date: 04/07/23 Stop Date: 10/04/23 Status: Ordered ibuprofen 800 mg oral tablet 800 mg, 1, tablet, By Mouth, 3 times a day, PRN, # 270 tablet, Refills 1, Tot. Refills 1, Maintenance, Pain , Moderate, 12/19/22 11:49:00 EST, Route to Pharmacy Electronically, [facility]/pharmacy #[id number], Partial fill upon patient request if the prescription... Start Date: 12/19/22 Status: Ordered montelukast 10 mg oral tablet 10 mg, 1, tablet, By Mouth, Daily, # 30 tablet, Refills 3, Tot. Refills 3, Maintenance, 06/27/22 10:37:00 EDT, Route to Pharmacy Electronically, [facility]/pharmacy #[id number], Partial fill upon patient [...] Refills, Maintenance, 02/19/23 14:33:00 EST, [id number], 183, cm, 01/23/23 10:48:00 EST, Height, 103.4, [...] 05/18/23 12:01:00 EDT, 05/11/23 12:01:00 EDT, Film, [facility]/pharmacy #2071, Partial fill upon patient request if the prescription is for a schedule I... Start Date: 05/11/23 Stop Date: 05/18/23 Status: Ordered Suboxone 8 mg-2 mg sublingual film 1 film, Sublingual, 2 times a day, dissolve under the tongue, # 14 film, 0 Refills, Maintenance, 05/18/23 12:01:00 EDT, Film, [facility]/pharmacy #[id number], Partial fill upon patient request if the prescriptionis for a schedule II opioid drug., 1 film Sublingua... Start Date: 05/18/23 Stop Date: 05/25/23 Status: Ordered SUMAtriptan 25 mg oral tablet See Instructions, TAKE 1 TABLET BY MOUTH ONCE AT ONSET OF HEADACHE. MAY REPEAT IN 2 HOURS, # 12 tablet, 1 Refills, Maintenance, 02/17/22 18:10:00 EST, [facility]/pharmacy #[id number], 183, cm, 02/01/21 10:10:00 EST, Height Start Date: 02/17/22 Status: Ordered traZODone 50 mg oral tablet 1, tablet, By Mouth, Daily at bedtime, # 30 tablet, Refills 0, Maintenance, 02/19/23 14:33:00 EST, Route to Pharmacy Electronically, [facility] STORE 13662, 183, cm, 01/23/23 10:48:00 EST, Height, 103.4, kg, 12/19/22 11:22:00 EST, Dry Weight Start Date: 02/19/23 Status: Ordered Ventolin HFA 108 mcg/inh inhalation aerosol with adapter 1 puffs, Inhalation, 4 times a day, PRN NEEDED FOR WHEEZE, # 18 each, 1 Refills, Maintenance, 04/17/23 17:53:00 EDT, [id number], 183, cm, 01/23/23 10:48:00 EST, Height, 103.4, kg, 12/19/22 11:22:00 EST, Dry Weight Start Date: 04/17/23 Status: Ordered Wellbutrin XL 150 mg/24 hours oral tablet, extended release 1 tablet = 150 mg, By Mouth, Every 24 hours, # 30 tablet, 1 Refills, Maintenance, 12/05/22 12:03:00EDT, ER Tablet, [facility]/pharmacy #[id number], Partial fill upon patient [...] Active Vitamin D deficiency Confirmed Active 1initial [place] Back Pain Scale: 22 on 05/21/14; initial [place]: 16 pm 05/21/14 Social History Social History Type Response Smoking Status Former smoker; Tobac co user in household: No entered on: 03/31/14 Sex Patient Care team information Care Team Personnel Name: Rob ACOSTA, Nahid Castanon Position: [facility] Physician - Primary Care Member Role: PCP Address: Address: [address] [place] [phone]- Care Team Related Persons Name: SADI GILBERT Address: home [address] [place] [address]
--- OUTSIDE RECORDS SUMMARY | 2024-01-01 12:11 | XMS_ITS | Continuity of Care Document ---
Author Organization [facility] Address [address] [place] [address]- Care Team Providers Care Pattern Molder Name Role Phone Rob ACOSTA, Nahid Castanon Primary Care Physician Encounter [facility] Date(s): 11/28/23 - 12/28/[address] [address]- Encounter Type: Triage Allergies, Adverse Reactions, Alerts [...] 10:19:00 AM EDT, Route to Pharmacy Electronically, [facility]/pharmacy #[id number], 183, cm, 01/23/23 10:48:00 EST, Height, 103.4, kg, 12/19/22 11:22:00 EST, Dry Weight Start Date: 11/18/23 Status: Ordered Quantity: 120.0 Unit: tablet Repeat number: 1 clotrimazole 1% topical cream See Instructions, APPLY TO AFFECTED AREA TWICE A DAY, # 60 Gm, 0 Refills, Maintenance, 09/22/23 10:38:00 PM EDT, [facility] STORE [id number], 30, APPLY TO AFFECTED AREA TWICE A DAY, 183, cm, 01/23/23 10:48:00 EST, Height, 103.4, kg, 12/19/22 11:22:00 EST, Dry Weight Start Date: 09/22/23 Status: Ordered Quantity: 60.0 Unit: g Repeat number: 1 diclofenac 1% topical gel 1 application, Topically, 4 times a day, PRN for pain, # 100 Gm, 2 Refills, Maintenance, 02/17/22 6:10:00 PM EST, Gel, [facility]/pharmacy #[id number], 183, cm, 02/01/21 10:10:00 EST, Height Start Date: 02/17/22 Stop Date: 05/18/22 Status: Ordered Quantity: 100.0 Unit: g Repeat number: 3 fluticasone 50 mcg/inh nasal spray See Instructions, USE 1 SPRAY IN EACH NOSTRIL TWICE A DAY, # 48 mL, 1 Refills, Maintenance, 01/24/23 8:14:00 AM EST, [facility] STORE 79713, 90, USE 1 SPRAY IN EACH NOSTRIL [...] 10:10:00 AM EDT, Route to Pharmacy Electronically, [facility]/pharmacy #[id number], Partial fill upon patient request if the [...] 10:10:00 AM EST, [facility] Electronically, [facility] 10:19:00 AM EDT, Route to Pharmacy Electronically, [facility]/pharmacy #[id number], 183, cm, 01/23/23 10:48:00 EST, Height, 103.4, kg, 12/19/22 11:22:00 EST, Dry Weight Start Date: 11/18/23 Status: Ordered Quantity: 90.0 Unit: tablet Repeat number: 1 montelukast 10 mg oral tablet 10 mg, 1, tablet, By Mouth, Daily, # 30 tablet, Refills 3, Tot. Refills 3, Maintenance, 06/27/22 10:37:00 AM EDT, [facility], [facility] [...] 0 Refills, Maintenance, 02/19/23 2:33:00 PM EST, [id number], 183, cm, 01/23/23 10:48:00 EST, Height, 103.4, [...] a day, dissolve under the tongue, # 10 film, 0 Refills, Maintenance, 12/27/23 7:23:00 AM EST, Film, [facility]/pharmacy #[id number], Partial fill upon patient request if the prescription is for a schedule II opioid drug., 1 film Sublingual 2 times a day,x5 days,Instr:dissolve under the tongue, 183, cm, 01/23/23 10:48:00 EST, Height, 103.4, kg, 12/19/22 11:22:00 EST, Dry Weight Start Date: 12/27/23 Stop Date: 01/01/24 Status: Ordered Quantity: 10.0 Unit: film Repeat number: 1 Indication: Opioid use, unspecified, uncomplicated SUMAtriptan 25 mg oral tablet See Instructions, TAKE 1 TABLET BY MOUTH ONCE AT ONSET OF HEADACHE. MAY REPEAT IN 2 HOURS, # 12 tablet, 1 Refills, Maintenance, 02/17/22 6:10:00 PM EST, [facility]/pharmacy #207, 183, cm, 02/01/21 10:10:00 EST, Height Start Date: 02/17/22 Status: Ordered Quantity: 12.0 Unit: tablet Repeat number: 2 traZODone 50 mg oral tablet 1, tablet, By Mouth, Daily at bedtime, # 30 tablet, Refills 0, Tot. Refills 0, Maintenance, 11/18/23 10:19:00 AM EDT, Route to Pharmacy Electronically, [facility]/pharmacy #207, 183, cm, 01/23/23 10:48:00 EST, Height, 103.4, kg, 12/19/22 11:22:00 EST, Dry Weight Start Date: 11/18/23 Status: Ordered Quantity: 30.0 Unit: tablet Repeat number: 1 Ventolin HFA 108 mcg/inh inhalation aerosol with adapter 1 puffs, Inhalation, 4 times a day, PRN NEEDED FOR WHEEZE, # 18 each, 1 Refills, Maintenance, 04/17/23 5:53:00 PM EDT, [facility], 183, cm, 01/23/23 10:48:00 EST, Height, 103.4, kg, 12/19/22 11:22:00 EST, Dry Weight Start Date: 04/17/23 Status: Ordered Quantity: 18.0 Unit: each Repeat number: 1 Wellbutrin XL 150 mg/24 hours oral tablet, extended release 1 tablet = 150 mg, By Mouth, Every 24 hours, # 30 tablet, 1 Refills, Maintenance, 12/05/22 12:03:00PM EDT, ER Tablet, [facility]/pharmacy #1631, Partial fill upon patient request if the [...] Back Pain Scale: 22 on 05/21/14; initial [place]: 16 pm 05/21/14 Social History Social History Type Response Smoking Status Former smoker; Tobac co user in household: No entered on: 03/31/14 Sex Sex Representation Male (finding) Patient Care team information Care Team Personnel Name: Nahid Rivas MD Position: [facility] Physician - Primary Care Member Role: PCP Address: [address] [place] [address] Telecom: Care Team Related Persons Name: SADI GILBERT Insurance Providers Guarantor name: LYN PARMAR [employer] Plan Information #: 1 Payer: SELF PAY INSURANCE Member Number: NA Policy Number: NA Group Number: NA
--- OUTSIDE RECORDS SUMMARY | 2024-01-01 12:11 | XMS_ITS | Continuity of Care Document ---
Author Organization [facility] Address [address] [place] [address]- Care Team Providers Care Hydraulic Technician Name Role Phone Rob ACOSTA, Nahid Castanon Primary Care Physician Encounter [facility] Date(s): 06/21/23 - 07/21/[address] [address] Allergies, Adverse Reactions, Alerts Substance Reaction Severity [...] 07/10/23 14:09:00 EDT, Route to Pharmacy Electronically, [facility] STORE 62312, 183, cm, 01/23/23 10:48:00 EST, Height, 103.4, kg, 12/19/22 11:22:00 EST, Dry Weight Start Date: 07/10/23 Status: Ordered clotrimazole 1% topical cream 1 application, Topically, 2 times a day, # 60 Gm, 0 Refills, Maintenance, 06/29/23 16:50:00 EDT, Cream, [facility]/pharmacy #[id number], 1 application Topically 2 times a day, 183, cm, 01/23/23 10:48:00 EST, Height, 103.4, kg, 12/19/22 11:22:00 EST, Dry Weight Start Date: 06/29/23 Status: Ordered diclofenac 1% topical gel 1 application, Topically, 4 times a day, PRN for pain, # 100 Gm, 2 Refills, Maintenance, 02/17/22 18:10:00 EST, Gel[facility] 183, cm, 02/01/21 10:10:00 EST, Height Start Date: 02/17/22 Stop Date: 05/18/22 Status: Ordered fluticasone 50 mcg/inh nasal spray See Instructions, USE 1 SPRAY IN EACH NOSTRIL TWICE A DAY, # 48 mL, 1 Refills, Maintenance, 01/24/23 8:14:00 EST, [facility] STORE 10637, 90, USE 1 SPRAY IN EACH NOSTRIL [...] Electronically, [facility] STORE 82212, 183, cm, 01/23/23 10:48:00 EST, Height, 103.4, [...] tablet, 0 Refills, Maintenance, 02/19/23 14:33:00 EST, [facility] STORE 81952, 183, cm, 01/23/23 10:48:00 EST, Height, 103.4, [...] 0 Refills, Maintenance, 07/14/23 7:09:00 EDT, Film, [facility]/pharmacy [...] 06/05/23 14:55:00 EDT, Route to Pharmacy Electronically, [facility]/pharmacy #207, 183, cm, 01/23/23 10:48:00 EST, Height, 103.4, kg, 12/19/22 11:22:00 EST, Dry Weight Start Date: 06/05/23 Status: Ordered Ventolin HFA 108 mcg/inh inhalation aerosol with adapter 1 puffs, Inhalation, 4 times a day, PRN NEEDED FOR WHEEZE, # 18 each, 1 Refills, Maintenance, 04/17/23 17:53:00 EDT, [facility], 183, cm, 01/23/23 10:48:00 EST, Height, 103.4, kg, 12/19/22 11:22:00 EST, Dry Weight Start Date: 04/17/23 Status: Ordered Wellbutrin XL 150 mg/24 hours oral tablet, extended release 1 tablet = 150 mg, By Mouth, Every 24 hours, # 30 tablet, 1 Refills, Maintenance, 12/05/22 12:03:00EDT, ER Tablet, [facility]/pharmacy #6521, Partial fill upon patient request if the [...] Active Vitamin D deficiency Confirmed Active 1initial [place] Back Pain Scale: 22 on 05/21/14; initial [place]: 16 pm 05/21/14 Social History Social History Type Response Smoking Status Former smoker; Tobac co user in household: No entered on: 03/31/14 Sex Patient Care team information Care Team Personnel Name: Rob ACOSTA, Nahid Castanon Position: [facility] Physician - Primary Care Member Role: PCP Address: Address: [address] [place] [address]- Care Team Related Persons Name: SADI GILBERT Address: home [address] [place] [address]
--- OUTSIDE RECORDS SUMMARY | 2024-01-01 12:11 | XMS_ITS | Continuity of Care Document ---
Author Organization [facility] Address [address] [place] [address]- Care Team Providers Care Hospice Care Transitions Coordinator Name Role Phone Nahid Rivas MD Primary Care Physician Encounter [facility] Date(s): 12/27/19 - 01/26/[address] [address]- Allergies, Adverse Reactions, Alerts Substance Reaction Severity [...] day, # 60 Gm, 0 Refills, Maintenance, 12/02/19 9:25:00 EDT, Cream, [facility], 1 application Topically 2 times a day, 183, cm, 12/02/19 9:13:00 EDT, Height Start Date: 12/02/19 Status: Ordered diclofenac 1% topical gel 1 application, Topically, 4 times a day, PRN for pain, # 100 Gm, 2 Refills, Maintenance, 09/23/19 8:52:00 EDT, Gel, [id number], 183, cm, 09/23/19 8:40:00 EDT, Height Start [...] use 2nd tablet sparingly, # 45 tablet, 0 Refills, Maintenance, 01/20/20 18:51:00 EST, ER Tablet, [facility]/pharmacy #0745, Partial fill upon patient request if the prescription is for a schedule II opioid drug.,... Start Date: 01/20/20 Status: Ordered Problem List Condition Effective Dates Status Health Status Inform ant Back pain(Confirmed) Active Somnolence(Confirmed) Active Limitation due to disability(Confirmed) 1 Active Obesity(Confirmed) Active Type 2 diabetes mellitus(Confirmed) Active Vitamin D deficiency(Confirmed) Active 1initial [place] Back Pain Scale: 22 on 05/21/14; initial [place]: 16 pm 05/21/14 Social History Social History Type Response Smoking Status Former smoker; Tobac co user in household: No entered on: 03/31/14 Sex
--- OUTSIDE RECORDS SUMMARY | 2024-01-01 12:11 | XMS_ITS | Continuity of Care Document ---
Author Organization [facility] Address [address] [place] [address]- Care Team Providers Care Industrial Gas Servicer Supervisor Name Role Phone Rob ACOSTA, Nahid Castanon Primary Care Physician Encounter [facility] Date(s): 03/12/19 - 03/22/[address] [address]- [facility] Attending Physician: Laura Arauz Admitting Physician: AdmtrLaura Referring Physician: AdmtrLaura Allergies, Adverse Reactions, Alerts [...] Refills, Maintenance, 02/11/19 9:02:00 EST, ER Tablet, [facility]/pharmacy #[id number], 183, cm, 02/11/19 8:37:00 EST, Height Start Date: 02/11/19 Stop Date: 05/12/19 Status: Ordered Problem List Condition Effective Dates Status Health Status Inform ant Back pain(Confirmed) Active Somnolence(Confirmed) Active Limitation due to disability(Confirmed) 1 Active Obesity(Confirmed) Active Sleep apnea(Confirmed) Active Type 2 diabetes mellitus(Confirmed) Active Vitamin D deficiency(Confirmed) Active 1initial [place] Back Pain Scale: 22 on 05/21/14; initial [place]: 16 pm 05/21/14 Social History Social History Type Response Smoking Status Former smoker; Tobac co user in household: No entered on: 03/31/14 Sex
--- OUTSIDE RECORDS SUMMARY | 2024-01-01 12:11 | XMS_ITS | Continuity of Care Document ---
Author Organization [facility] Address [address] [place] [address]- Care Team Providers Care Silo Filler Name Role Phone Nahid Rivas MD Primary Care Physician [place] [facility] Date(s[place] 07/13/22 - 08/12/[address] [address]- Allergies, Adverse Reactions, Alerts Substance Reaction Severity [...] Refills, Maintenance, 05/18/20 8:31:00 EDT, Cream, [facility]/pharmacy #2071, 1 application Topically 2 times a day, 183, cm, 12/02/19 9:13:00 EDT, Height Start Date: 05/18/20 Status: Ordered diclofenac 1% topical gel 1 application, Topically, 4 times a day, PRN for pain, # 100 Gm, 2 Refills, Maintenance, 02/17/22 18:10:00 EST, Gel, [facility]/pharmacy #2071, 183, cm, 02/01/21 10:10:00 EST, Height Start Date: 02/17/22 Stop Date: 05/18/22 Status: Ordered Flonase 50 mcg/inh nasal spray 1 sprays, Nares, Both, 2 times a day, # 16 Gm, 5 Refills, Maintenance, 02/17/22 18:10:00 EST, [place], [facility]/pharmacy #2071, Partial fill upon patient request if [...] 10/01/21 8:32:00 EDT, Route to Pharmacy Electronically, [facility]/pharmacy #[id number], Partial fill upon patient request if the prescription i... Start Date: 10/01/21 Status: Ordered montelukast 10 mg oral tablet 10 mg, 1, tablet, By Mouth, Daily, # 30 tablet, Refills 3, Tot. Refills 3, Maintenance, 06/27/22 10:37:00 EDT, Route to Pharmacy Electronically, [facility]/pharmacy #[id number], Partial fill upon patient request if [...] Refills, Maintenance, 07/12/22 12:59:00 EDT, ER Tablet, [facility]/pharmacy #2071, Partial fill upon patient request if [...] Back Pain Scale: 22 on 05/21/14; initial [place]: 16 pm 05/21/14 Social History Social History Type Response Smoking Status Former smoker; Tobac co user in household: No entered on: 03/31/14 Sex Patient Care team information Care Team Personnel Name: Rob ACOSTA, Nahid Castanon Position: [facility] Physician - Primary Care Member Role: PCP Address: Address: [address] [place], [place] [id number]- Care Team Related Persons Name: GILBERT SADI Address: [address] [address]
--- OUTSIDE RECORDS SUMMARY | 2024-01-01 12:11 | XMS_ITS | Continuity of Care Document ---
Author Organization [facility] Address [address] [place] [address]- Care Team Providers Care Farm Management Agent Name Role Phone Nahid Rivas MD Primary Care Physician [phone] [place] [facility] [place] [facility] [id number] Date(s): 02/01/21 - 03/03/[address] [address]- Attending Physician: Admsilvia, Laura Admitting Physician: Admtr, Ar8 Referring Physician: Admtr, Ar8 Allergies, Adverse Reactions, [...] Gm, 5 Refills, Maintenance, 07/13/20 8:57:00 EDT, [place],[facility]/pharmacy #[id number], Partial fill upon patient request if the [...] Tot. Refills 1, Maintenance, Pain , Moderate, 02/17/21 16:16:00 EST, Route to Pharmacy Electronically, [facility]/pharmacy #[id number], Partial fill upon patient request if the prescription... Start Date: 02/17/21 Stop Date: 03/03/21 Status: Ordered Neutral position wrist splints, medium, [...] Refills, Soft Stop, 01/25/21 11:02:00 EST, Tablet, [facility]/pharmacy #[id number], Partial fill upon patient request if the prescription is for a schedule II opioid drug... Start Date: 01/25/21 Status: Ordered tramadol 200 mg oral tablet, extended release See Instructions, 1-2 tablet By Mouth Daily, use 2nd tablet sparingly, # 45 tablet, 5 Refills, Maintenance, 02/03/21 9:30:00 EST, ER Tablet, [facility]/pharmacy #[id number], Partial fill upon patient request [...] mellitus(Confirmed) Active Vitamin D deficiency(Confirmed) Active 1initial [place] Back Pain Scale: 22 on 05/21/14; initial [place]: 16 pm 05/21/14 Social History Social History Type Response Smoking Status Former smoker; Tobac co user in household: No entered on: 03/31/14 Sex
--- OUTSIDE RECORDS SUMMARY | 2024-01-01 12:11 | XMS_ITS | Continuity of Care Document ---
Author Organization [facility] Address [address] [place] [address]- Care Team Providers Care Print Developer Automatic Name Role Phone Rob ACOSTA, Nahid Castanon Primary Care Physician Encounter [facility] Date(s): 06/05/23 - 07/05/[address] [address] Allergies, Adverse Reactions, Alerts Substance [...] mL, 1 Refills, Maintenance, 01/24/23 8:14:00 EST, [facility] STORE 66276, 90, USE 1 SPRAY IN EACH NOSTRIL [...] Maintenance,10/04/23 10:10:00 EDT, Route to Pharmacy Electronically, [facility]/pharmacy #[id number], Partial fill upon patient request if the prescription is for a schedule II... Start Date: 10/04/23 Stop Date: 04/01/24 Status: Ordered gabapentin 300 mg oral capsule 600 mg, 2, capsule, By Mouth, 3 times a day, for 30 days, # 180 capsule, Refills 5, Tot. Refills 5,Hard Stop 10/04/23 10:10:00 EDT, 04/07/23 10:10:00 EST, Route to Pharmacy Electronically, [facility]/pharmacy #[id number], Partial fill upon patient request if the... Start Date: 04/07/23 Stop Date: 10/04/23 Status: Ordered ibuprofen 800 mg oral tablet 1, tablet, By Mouth, 3 times a day, PRN, # 270 tablet, Refills 1, Maintenance, NEEDED FOR PAIN, 06/13/23 6:56:00 EDT, Route to Pharmacy Electronically, [facility] STORE 26609, 183, cm, 01/23/23 10:48:00 EST, Height, 103.4, kg, 12/19/22 11:22:00 EST, Dry W... Start Date: 06/13/23 Status: Ordered montelukast 10 mg oral tablet 10 mg, 1, tablet, By Mouth, Daily, # 30 tablet, Refills 3, Tot. Refills 3, Maintenance, 06/27/22 10:37:00 EDT, Route to Pharmacy Electronically, [facility]/pharmacy #[id number], Partial fill upon patient request [...] Refills, Maintenance, 02/19/23 14:33:00 EST, [facility], 183, cm, 01/23/23 10:48:00 EST, Height, 103.4, [...] 0 Refills, Maintenance, 06/30/23 7:09:00 EDT, Film, [facility]/pharmacy #[id number], Partial fill upon patient request if the prescription is for a schedule II opioid drug., 1 film Sublingual... Start Date: 06/30/23 Stop Date: 07/14/23 Status: Ordered SUMAtriptan 25 mg oral tablet See Instructions, TAKE 1 TABLET BY MOUTH ONCE AT ONSET OF HEADACHE. MAY REPEAT IN 2 HOURS, # 12 tablet, 1 Refills, Maintenance, 02/17/22 18:10:00 EST, [facility]/pharmacy #[id number], 183, cm, 02/01/21 10:10:00 EST, Height Start Date: 02/17/22 Status: Ordered traZODone 50 mg oral tablet 1, tablet, By Mouth, Daily at bedtime, # 30 tablet, Refills 3, Tot. Refills 3, Maintenance, 06/05/23 14:55:00 EDT, Route to Pharmacy Electronically, [facility]/pharmacy #207, 183, cm, 01/23/23 10:48:00 EST, Height, 103.4, kg, 12/19/22 11:22:00 EST, Dry Weight Start Date: 06/05/23 Status: Ordered Ventolin HFA 108 mcg/inh inhalation aerosol with adapter 1 puffs, Inhalation, 4 times a day, PRN NEEDED FOR WHEEZE, # 18 each, 1 Refills, Maintenance, 04/17/23 17:53:00 EDT, [facility], 183, cm, 01/23/23 10:48:00 EST, Height, 103.4, kg, 12/19/22 11:22:00 EST, Dry Weight Start Date: 04/17/23 Status: Ordered Wellbutrin XL 150 mg/24 hours oral tablet, extended release 1 tablet = 150 mg, By Mouth, Every 24 hours, # 30 tablet, 1 Refills, Maintenance, 12/05/22 12:03:00EDT, ER Tablet, [facility]/pharmacy #[id number], Partial fill upon patient request [...] Active Vitamin D deficiency Confirmed Active 1initial [place] Back Pain Scale: 22 on 05/21/14; initial [place]: 16 pm 05/21/14 Social History Social History Type Response Smoking Status Former smoker; Tobac co user in household: No entered on: 03/31/14 Sex Patient Care team information Care Team Personnel Name: Nahid Rivas MD Position: S Physician - Primary Care Member Role: PCP Address: Address: [address] [place] [address]- Care Team Related Persons Name: GILBERT, SADI Address: home [address] [place] [id number]
--- OUTSIDE RECORDS SUMMARY | 2024-01-01 12:12 | XMS_ITS | Continuity of Care Document ---
Author Organization [facility] Address [address] [place] [address]- Care Team Providers Care Rerecording Mixer Name Role Phone Rob ACOSTA, Nahid Castanon Primary Care Physician [phone] [place] [facility] [place] 11/28/23 - 12/28/[address] [address]- Encounter Type: Triage Allergies, Adverse Reactions, Alerts [...] 10:19:00 AM EDT, Route to Pharmacy Electronically, [facility]/pharmacy #[id number], 183, cm, 01/23/23 10:48:00 EST, Height, 103.4, kg, 12/19/22 11:22:00 EST, Dry Weight Start Date: 11/18/23 Status: Ordered Quantity: 120.0 Unit: tablet Repeat number: 1 clotrimazole 1% topical cream See Instructions, APPLY TO AFFECTED AREA TWICE A DAY, # 60 Gm, 0 Refills, Maintenance, 09/22/23 10:38:00 PM EDT, [facility] STORE 03624, 30, APPLY TO AFFECTED AREA TWICE A DAY, 183, cm, 01/23/23 10:48:00 EST, Height, 103.4, kg, 12/19/22 11:22:00 EST, Dry Weight Start Date: 09/22/23 Status: Ordered Quantity: 60.0 Unit: g Repeat number: 1 diclofenac 1% topical gel 1 application, Topically, 4 times a day, PRN for pain, # 100 Gm, 2 Refills, Maintenance, 02/17/22 6:10:00 PM EST, Gel, [facility]/pharmacy #[id number], 183, cm, 02/01/21 10:10:00 EST, Height Start Date: 02/17/22 Stop Date: 05/18/22 Status: Ordered Quantity: 100.0 Unit: g Repeat number: 3 fluticasone 50 mcg/inh nasal spray See Instructions, USE 1 SPRAY IN EACH NOSTRIL TWICE A DAY, # 48 mL, 1 Refills, Maintenance, 01/24/23 8:14:00 AM EST, [facility] STORE 57347, 90, USE 1 SPRAY IN EACH NOSTRIL [...] 10:10:00 AM EDT, Route to Pharmacy Electronically, [facility]/pharmacy #1052, Partial fill upon patient request if the [...] 10:10:00 AM EST, Route to Pharmacy Electronically, [facility]/pharmacy #[id number], Partial fill upon patient request [...] 10:19:00 AM EDT, Route to Pharmacy Electronically, [facility]/pharmacy #[id number], 183, cm, 01/23/23 10:48:00 EST, Height, 103.4, kg, 12/19/22 11:22:00 EST, Dry Weight Start Date: 11/18/23 Status: Ordered Quantity: 90.0 Unit: tablet Repeat number: 1 montelukast 10 mg oral tablet 10 mg, 1, tablet, By Mouth, Daily, # 30 tablet, Refills 3, Tot. Refills 3, Maintenance, 06/27/22 10:37:00 AM EDT, Route to Pharmacy Electronically, [facility]/pharmacy #[id number], Partial fill upon patient request [...] 0 Refills, Maintenance, 02/19/23 2:33:00 PM EST, [facility] [address], 183, cm, 01/23/23 10:48:00 EST, Height, 103.4, [...] Refills, Maintenance, 12/27/23 7:23:00 AM EST, Film, [facility]/pharmacy #[id number], Partial fill upon patient request [...] 1 Refills, Maintenance, 02/17/22 6:10:00 PM EST, [facility]/pharmacy #207, 183, cm, 02/01/21 10:10:00 EST, Height Start Date: 02/17/22 Status: Ordered Quantity: 12.0 Unit: tablet Repeat number: 2 traZODone 50 mg oral tablet 1, tablet, By Mouth, Daily at bedtime, # 30 tablet, Refills 0, Tot. Refills 0, Maintenance, 11/18/23 10:19:00 AM EDT, Route to Pharmacy Electronically, [facility]/pharmacy #207, 183, cm, 01/23/23 10:48:00 EST, Height, 103.4, kg, 12/19/22 11:22:00 EST, Dry Weight Start Date: 11/18/23 Status: Ordered Quantity: 30.0 Unit: tablet Repeat number: 1 Ventolin HFA 108 mcg/inh inhalation aerosol with adapter 1 puffs, Inhalation, 4 times a day, PRN NEEDED FOR WHEEZE, # 18 each, 1 Refills, Maintenance, 04/17/23 5:53:00 PM EDT, [facility], 183, cm, 01/23/23 10:48:00 EST, Height, 103.4, kg, 12/19/22 11:22:00 EST, Dry Weight Start Date: 04/17/23 Status: Ordered Quantity: 18.0 Unit: each Repeat number: 1 Wellbutrin XL 150 mg/24 hours oral tablet, extended release 1 tablet = 150 mg, By Mouth, Every 24 hours, # 30 tablet, 1 Refills, Maintenance, 12/05/22 12:03:00PM EDT, ER Tablet, [facility]/pharmacy #9371, Partial fill upon patient request if the [...] Back Pain Scale: 22 on 05/21/14; initial [place]: 16 pm 05/21/14 Social History Social History Type Response Smoking Status Former smoker; Tobac co user in household: No entered on: 03/31/14 Sex Sex Representation Male (finding) Patient Care team information Care Team Personnel Name: Nahid Rivas MD Position: [facility] Physician - Primary Care Member Role: PCP Address: [address] [place] [address] Telecom: Care Team Related Persons Name: SADI GILBERT Insurance Providers Guarantor name: LYN PARMAR [employer] Plan Information #: 1 Payer: SELF PAY INSURANCE Member Number: NA Policy Number: NA Group Number: NA
--- OUTSIDE RECORDS SUMMARY | 2024-01-01 12:12 | XMS_ITS | Continuity of Care Document ---
Author Organization [facility] Address [address] [place] [address]- Care Team Providers Care High School Professional Name Role Phone Nahid Rivas MD Primary Care Physician [phone] [place] [facility] [place] - 08/19/[address] [address]- Allergies, Adverse Reactions, Alerts Substance Reaction Severity [...] Gm, 5 Refills, Maintenance, 07/13/20 8:57:00 EDT, [place],[facility]/pharmacy #2071, Partial fill upon patient request if [...] 07/13/20 9:02:00 EDT, Route to Pharmacy Electronically, [facility]/pharmacy #[id number], Partial fill upon patient request if the prescription is for a schedule II opi... Start Date: 07/13/20 Status: Ordered ipratropium nasal 21 mcg/inh spray 2 sprays, Nares, Both, 3 times a day, # 30 mL, 1 Refills, Acute 09/12/20 12:00:00 EDT, 07/13/20 8:58:00 EDT, [place], [facility]/pharmacy #2071, Partial fill upon patient request if [...] Refills, Maintenance, 07/13/20 8:47:00 EDT, ER Tablet, [facility]/pharmacy #4354, Partial fill upon patient request if the [...] Back Pain Scale: 22 on 05/21/14; initial [place]: 16 pm 05/21/14 Social History Social History Type Response Smoking Status Former smoker; Tobac co user in household: No entered on: 03/31/14 Sex
--- OUTSIDE RECORDS SUMMARY | 2024-01-01 12:12 | XMS_ITS | Continuity of Care Document ---
Author Organization [facility] Address [address] [place] [address]- Care Team Providers Care Juice Mixer Name Role Phone Rob ACOSTA, Nahid Castanon Primary Care Physician [phone] Encounter [facility] [place] Date(s): 11/24/23 - 12/24/[address] [address]- Encounter Type: Triage Allergies, Adverse Reactions, Alerts [...] 10:19:00 AM EDT, Route to Pharmacy Electronically, [facility]/pharmacy #[id number], 183, cm, 01/23/23 10:48:00 EST, Height, 103.4, kg, 12/19/22 11:22:00 EST, Dry Weight Start Date: 11/18/23 Status: Ordered Quantity: 120.0 Unit: tablet Repeat number: 1 clotrimazole 1% topical cream See Instructions, APPLY TO AFFECTED AREA TWICE A DAY, # 60 Gm, 0 Refills, Maintenance, 09/22/23 10:38:00 PM EDT, [facility] STORE 34291, 30, APPLY TO AFFECTED AREA TWICE A DAY, 183, cm, 01/23/23 10:48:00 EST, Height, 103.4, kg, 12/19/22 11:22:00 EST, Dry Weight Start Date: 09/22/23 Status: Ordered Quantity: 60.0 Unit: g Repeat number: 1 diclofenac 1% topical gel 1 application, Topically, 4 times a day, PRN for pain, # 100 Gm, 2 Refills, Maintenance, 02/17/22 6:10:00 PM EST, Gel, [facility]/pharmacy #[id number], 183, cm, 02/01/21 10:10:00 EST, Height Start Date: 02/17/22 Stop Date: 05/18/22 Status: Ordered Quantity: 100.0 Unit: g Repeat number: 3 fluticasone 50 mcg/inh nasal spray See Instructions, USE 1 SPRAY IN EACH NOSTRIL TWICE A DAY, # 48 mL, 1 Refills, Maintenance, 01/24/23 8:14:00 AM EST, [facility] STORE 85447, 90, USE 1 SPRAY IN EACH NOSTRIL [...] 10:10:00 AM EDT, Route to Pharmacy Electronically, [facility]/pharmacy #1041, Partial fill upon patient request if the [...] 10:10:00 AM EST, Route to Pharmacy Electronically, [facility]/pharmacy #2071, Partial fill upon patient request if [...] 10:19:00 AM EDT, Route to Pharmacy Electronically, [facility]/pharmacy #2071, 183, cm, 01/23/23 10:48:00 EST, Height, 103.4, kg, 12/19/22 11:22:00 EST, Dry Weight Start Date: 11/18/23 Status: Ordered Quantity: 90.0 Unit: tablet Repeat number: 1 montelukast 10 mg oral tablet 10 mg, 1, tablet, By Mouth, Daily, # 30 tablet, Refills 3, Tot. Refills 3, Maintenance, 06/27/22 10:37:00 AM EDT, Route to Pharmacy Electronically, [facility]/pharmacy #2071, Partial fill upon patient request if [...] 0 Refills, Maintenance, 02/19/23 2:33:00 PM EST, [facility] [address], 183, cm, 01/23/23 10:48:00 EST, Height, 103.4, [...] Refills, Maintenance, 11/18/23 10:19:00 AM EDT, Film, [facility]/pharmacy #2071, Partial fill upon patient request if [...] Refills, Maintenance, 02/17/22 6:10:00 PM EST, [facility], 183, cm, 02/01/21 10:10:00 EST, Height Start Date: 02/17/22 Status: Ordered Quantity: 12.0 Unit: tablet Repeat number: 2 traZODone 50 mg oral tablet 1, tablet, By Mouth, Daily at bedtime, # 30 tablet, Refills 0, Tot. Refills 0, Maintenance, 11/18/23 10:19:00 AM EDT, Route to Pharmacy Electronically, [facility]/pharmacy #2071, 183, cm, 01/23/23 10:48:00 EST, Height, 103.4, kg, 12/19/22 11:22:00 EST, Dry Weight Start Date: 11/18/23 Status: Ordered Quantity: 30.0 Unit: tablet Repeat number: 1 Ventolin HFA 108 mcg/inh inhalation aerosol with adapter 1 puffs, Inhalation, 4 times a day, PRN NEEDED FOR WHEEZE, # 18 each, 1 Refills, Maintenance, 04/17/23 5:53:00 PM EDT, [facility], 183, cm, 01/23/23 10:48:00 EST, Height, 103.4, kg, 12/19/22 11:22:00 EST, Dry Weight Start Date: 04/17/23 Status: Ordered Quantity: 18.0 Unit: each Repeat number: 1 Wellbutrin XL 150 mg/24 hours oral tablet, extended release 1 tablet = 150 mg, By Mouth, Every 24 hours, # 30 tablet, 1 Refills, Maintenance, 12/05/22 12:03:00PM EDT, ER Tablet, [facility]/pharmacy #2071, Partial fill upon patient request if [...] Back Pain Scale: 22 on 05/21/14; initial [place]: 16 pm 05/21/14 Social History Social History Type Response Smoking Status Former smoker; Tobac co user in household: No entered on: 03/31/14 Sex Sex Representation Male (finding) Patient Care team information Care Team Personnel Name: Nahid Rivas MD Position: S Physician - Primary Care Member Role: PCP Address: [address] [place] [id number] Telecom: Care Team Related Persons Name: SADI GILBERT Insurance Providers Guarantor name: LYN PARMAR [facility] Plan Information #: 1 Payer: SELF PAY INSURANCE Member Number: NA Policy Number: NA Group Number: NA
--- OUTSIDE RECORDS SUMMARY | 2024-01-01 12:12 | XMS_ITS | Continuity of Care Document ---
Author Organization [facility] Address [address] [place] [address]- Care Team Providers Care Technology Administrator Name Role Phone Rob ACOSTA, Nahid Castanon Primary Care Physician [place] [facility] [place] - 07/20/[address] [address] Allergies, Adverse Reactions, Alerts Substance [...] 07/10/23 14:09:00 EDT, Route to Pharmacy Electronically, [facility] STORE 41838, 183, cm, 01/23/23 10:48:00 EST, Height, 103.4, kg, 12/19/22 11:22:00 EST, Dry Weight Start Date: 07/10/23 Status: Ordered clotrimazole 1% topical cream 1 application, Topically, 2 times a day, # 60 Gm, 0 Refills, Maintenance, 06/29/23 16:50:00 EDT, Cream, [facility]/pharmacy #[id number], 1 application Topically 2 times a day, 183, cm, 01/23/23 10:48:00 EST, Height, 103.4, kg, 12/19/22 11:22:00 EST, Dry Weight Start Date: 06/29/23 Status: Ordered diclofenac 1% topical gel 1 application, Topically, 4 times a day, PRN for pain, # 100 Gm, 2 Refills, Maintenance, 02/17/22 18:10:00 EST, Gel, [facility]/pharmacy #2071, 183, cm, 02/01/21 10:10:00 EST, Height Start Date: 02/17/22 Stop Date: 05/18/22 Status: Ordered fluticasone 50 mcg/inh nasal spray See Instructions, USE 1 SPRAY IN EACH NOSTRIL TWICE A DAY, # 48 mL, 1 Refills, Maintenance, 01/24/23 8:14:00 EST, [facility] STORE 22879, 90, USE 1 SPRAY IN EACH NOSTRIL [...] to Pharmacy Electronically, [facility] STORE 87442, 183, cm, 01/23/23 10:48:00 EST, Height, 103.4, [...] 0 Refills, Maintenance, 02/19/23 14:33:00 EST, [facility] STORE 51395, 183, cm, 01/23/23 10:48:00 EST, Height, 103.4, [...] 0 Refills, Maintenance, 07/14/23 7:09:00 EDT, Film, [facility]/pharmacy #2071, [...] Refills, Maintenance, 04/17/23 17:53:00 EDT, [facility], 183, cm, 01/23/23 10:48:00 EST, Height, 103.4, kg, 12/19/22 11:22:00 EST, Dry Weight Start Date: 04/17/23 Status: Ordered Wellbutrin XL 150 mg/24 hours oral tablet, extended release 1 tablet = 150 mg, By Mouth, Every 24 hours, # 30 tablet, 1 Refills, Maintenance, 12/05/22 12:03:00EDT, ER Tablet, [facility]/pharmacy #7631, Partial fill upon patient request if the [...] Back Pain Scale: 22 on 05/21/14; initial [place]: 16 pm 05/21/14 Social History Social History Type Response Smoking Status Former smoker; Tobac co user in household: No entered on: 03/31/14 Sex Patient Care team information Care Team Personnel Name: Rob ACOSTA, Nahid Castanon Position: [facility] Physician - Primary Care Member Role: PCP Address: Address: [address] [place] [address]- Care Team Related Persons Name: SADI GILBERT Address: home [address] [place] [address]
--- OUTSIDE RECORDS SUMMARY | 2024-01-01 12:12 | XMS_ITS | Continuity of Care Document ---
Author Organization [facility] Address [address] [place] [address]- Care Team Providers Care Fuel Quality Tech Name Role Phone Rob ACOSTA, Nahid Castanon Primary Care Physician Encounter [facility] Date(s): 12/20/22 - 01/19/[address] [address] Allergies, Adverse Reactions, Alerts Substance Reaction [...] 0 Refills, Maintenance, 05/18/20 8:31:00 EDT, Cream, [facility]/pharmacy #[id number], 1 application Topically 2 times a day, 183, cm, 12/02/19 9:13:00 EDT, Height Start Date: 05/18/20 Status: Ordered diclofenac 1% topical gel 1 application, Topically, 4 times a day, PRN for pain, # 100 Gm, 2 Refills, Maintenance, 02/17/22 18:10:00 EST, Gel, [facility]/pharmacy #[id number], 183, cm, 02/01/21 10:10:00 EST, Height Start Date: 02/17/22 Stop Date: 05/18/22 Status: Ordered Flonase 50 mcg/inh nasal spray 1 sprays, Nares, Both, 2 times a day, # 16 Gm, 5 Refills, Maintenance, 02/17/22 18:10:00 EST, [place], [facility]/pharmacy #207, Partial fill upon patient [...] 12/19/22 11:49:00 EST, Route to Pharmacy Electronically, [facility]/pharmacy #[id number], Partial fill upon patient request if the prescription... Start Date: 12/19/22 Status: Ordered montelukast 10 mg oral tablet 10 mg, 1, tablet, By Mouth, Daily, # 30 tablet, Refills 3, Tot. Refills 3, Maintenance, 06/27/22 10:37:00 EDT, Route to Pharmacy Electronically, [facility]/pharmacy #[id number], Partial fill upon patient [...] tongue, # 14 film, 0 Refills, Maintenance, 01/04/23 17:16:00 EST, Film, [facility]/pharmacy #2071, Partial fill upon patient request if the prescriptionis for a schedule II opioid drug., 1 film Sublingua... Start Date: 01/04/23 Stop Date: 01/11/23 Status: Ordered SUMAtriptan 25 mg oral tablet See Instructions, TAKE 1 TABLET BY MOUTH ONCE AT ONSET OF HEADACHE. MAY REPEAT IN 2 HOURS, # 12 tablet, 1 Refills, Maintenance, 02/17/22 18:10:00 EST, [facility]/pharmacy #[id number], 183, cm, 02/01/21 10:10:00 EST, Height Start Date: 02/17/22 Status: Ordered tramadol 200 mg oral tablet, extended release See Instructions, 1-2 tablet By Mouth Daily, use 2nd tablet sparingly, # 45 tablet, 5 Refills, Maintenance, 07/12/22 12:59:00 EDT, ER Tablet, [facility]/pharmacy #[id number], Partial fill upon patient request if the prescription is for a schedule II opioid drug.,... Start Date: 07/12/22 Status: Ordered Wellbutrin XL 150 mg/24 hours oral tablet, extended release 1 tablet = 150 mg, By Mouth, Every 24 hours, # 30 tablet, 1 Refills, Maintenance, 12/05/22 12:03:00EDT, ER Tablet, [facility]/pharmacy #5931, Partial fill upon patient request if the [...] Back Pain Scale: 22 on 05/21/14; initial [place]: 16 pm 05/21/14 Social History Social History Type Response Smoking Status Former smoker; Tobac co user in household: No entered on: 03/31/14 Sex Patient Care team information Care Team Personnel Name: Rob ACOSTA, Nahid Castanon Position: [facility] Physician - Primary Care Member Role: PCP Address: Address: [address] [place] [address]- Care Team Related Persons Name: SADI GILBERT Address: [address] [address]
--- OUTSIDE RECORDS SUMMARY | 2024-01-01 12:12 | XMS_ITS | Continuity of Care Document ---
Author Organization [facility] Address [address] [place] [address]- Care Team Providers Care Photography Spotter Name Role Phone Rob ACOTSA, Nahid Castanon Primary Care Physician Encounter [facility] Date(s): 08/07/23 - 09/06/[address] [id number] Allergies, Adverse Reactions, Alerts Substance [...] 08/08/23 13:16:00 EDT, [id number], cm, 01/23/23 10:48:00 EST, Height, 103.4, kg, 12/19/22 11:22:00 EST, Dry Weight Start Date: 08/08/23 Status: Ordered clotrimazole 1% topical cream 1 application, Topically, 2 times a day, # 60 Gm, 0 Refills, Maintenance, 06/29/23 16:50:00 EDT, [id number] 1 application Topically 2 times a day, 183, cm, 01/23/23 10:48:00 EST, Height, 103.4, kg, 12/19/22 11:22:00 EST, Dry Weight Start Date: 06/29/23 Status: Ordered diclofenac 1% topical gel 1 application, Topically, 4 times a day, PRN for pain, # 100 Gm, 2 Refills, Maintenance, 02/17/22 18:10:00 EST, Gel, [id number] 183, cm, 02/01/21 10:10:00 EST, Height Start Date: 02/17/22 Stop Date: 05/18/22 Status: Ordered fluticasone 50 mcg/inh nasal spray See Instructions, USE 1 SPRAY IN EACH NOSTRIL TWICE A DAY, # 48 mL, 1 Refills, Maintenance, 01/24/23 8:14:00 EST, [facility] ST[facility]27, 90, USE 1 SPRAY IN EACH NOSTRIL [...] Maintenance,10/04/23 10:10:00 EDT, Route to Pharmacy Electronically, [facility]/pharmacy #[id number], Partial fill upon patient request if the prescription is for a schedule II... Start Date: 10/04/23 Stop Date: 04/01/24 Status: Ordered gabapentin 300 mg oral capsule 600 mg, 2, capsule, By Mouth, 3 times a day, for 30 days, # 180 capsule, Refills 5, Tot. Refills 5,Hard Stop 10/04/23 10:10:00 EDT, 04/07/23 10:10:00 EST, Route to Pharmacy Electronically, [facility]/pharmacy #[id number], Partial fill upon patient request if the... Start Date: 04/07/23 Stop Date: 10/04/23 Status: Ordered ibuprofen 800 mg oral tablet 1, tablet, By Mouth, 3 times a day, PRN, # 270 tablet, Refills 1, Maintenance, NEEDED FOR PAIN, 06/13/23 6:56:00 EDT, Route to Pharmacy Electronically, [facility] [id number], 183, cm, 01/23/23 10:48:00 EST, Height, 103.4, kg, 12/19/22 11:22:00 EST, Dry W... Start Date: 06/13/23 Status: Ordered montelukast 10 mg oral tablet 10 mg, 1, tablet, By Mouth, Daily, # 30 tablet, Refills 3, Tot. Refills 3, Maintenance, 06/27/22 10:37:00 EDT, Route to Pharmacy Electronically, [facility]/pharmacy #[id number], Partial fill upon patient request [...] Refills, Maintenance, 02/19/23 14:33:00 EST, [facility], 183, cm, 01/23/23 10:48:00 EST, Height, 103.4, [...] 0 Refills, Maintenance, 08/21/23 12:56:00 EDT, Film, [facility]/pharmacy #[id number], Partial fill upon patient request if the prescriptionis for a schedule II opioid drug., 1 film Sublingua... Start Date: 08/21/23 Stop Date: 09/04/23 Status: Ordered SUMAtriptan 25 mg oral tablet See Instructions, TAKE 1 TABLET BY MOUTH ONCE AT ONSET OF HEADACHE. MAY REPEAT IN 2 HOURS, # 12 tablet, 1 Refills, Maintenance, 02/17/22 18:10:00 EST, [facility]/pharmacy #[id number], 183, cm, 02/01/21 10:10:00 EST, Height Start Date: 02/17/22 Status: Ordered traZODone 50 mg oral tablet 1, tablet, By Mouth, Daily at bedtime, # 30 tablet, Refills 5, Tot. Refills 5, Maintenance, 08/07/23 15:59:00 EDT, Route to Pharmacy Electronically, [facility]/pharmacy #[id number], 183, cm, 01/23/23 10:48:00 EST, Height, 103.4, kg, 12/19/22 11:22:00 EST, Dry Weight Start Date: 08/07/23 Status: Ordered Ventolin HFA 108 mcg/inh inhalation aerosol with adapter 1 puffs, Inhalation, 4 times a day, PRN NEEDED FOR WHEEZE, # 18 each, 1 Refills, Maintenance, 04/17/23 17:53:00 EDT, [facility], 183, cm, 01/23/23 10:48:00 EST, Height, 103.4, kg, 12/19/22 11:22:00 EST, Dry Weight Start Date: 04/17/23 Status: Ordered Wellbutrin XL 150 mg/24 hours oral tablet, extended release 1 tablet = 150 mg, By Mouth, Every 24 hours, # 30 tablet, 1 Refills, Maintenance, 12/05/22 12:03:00EDT, ER Tablet, [facility]/pharmacy #[id number], Partial fill upon patient request [...] Back Pain Scale: 22 on 05/21/14; initial [place]: 16 pm 05/21/14 Social History Social History Type Response Smoking Status Former smoker; Tobac co user in household: No entered on: 03/31/14 Sex Patient Care team information Care Team Personnel Name: Nahid Rivas MD Position: S Physician - Primary Care Member Role: PCP Address: Address: [address] [place] [address]- Care Team Related Persons Name: GILBERT, SADI Address: home [address] [place] [id number]
--- OUTSIDE RECORDS SUMMARY | 2024-01-01 12:12 | XMS_ITS | Continuity of Care Document ---
Author Organization [facility] Address [address] [place] [address]- Care Team Providers Care Bag Machine Helper Name Role Phone Nahid Rivas MD Primary Care Physician Encounter [facility] Date(s): 02/25/20 - 03/26/[address] [address]- Allergies, Adverse Reactions, Alerts Substance Reaction Severity [...] Refills, Maintenance, 03/09/20 9:43:00 EST, ER Tablet, [facility]/pharmacy #[id number], Partial fill upon patient request if the prescription is for a schedule II opioid drug., 1... Start Date: 03/09/20 Status: Ordered Problem List Condition Effective Dates Status Health Status Inform ant Back pain(Confirmed) Active Somnolence(Confirmed) Active Limitation due to disability(Confirmed) 1 Active Obesity(Confirmed) Active Type 2 diabetes mellitus(Confirmed) Active Vitamin D deficiency(Confirmed) Active 1initial [place] Back Pain Scale: 22 on 05/21/14; initial [place]: 16 pm 05/21/14 Social History Social History Type Response Smoking Status Former smoker; Tobac co user in household: No entered on: 03/31/14 Sex
--- OUTSIDE RECORDS SUMMARY | 2024-01-01 12:12 | XMS_ITS | Continuity of Care Document ---
Author Organization [facility] Address [address] [place] [address]- Care Team Providers Care Paperhanger Name Role Phone Rob ACOSTA, Nahid Castanon Primary Care Physician Encounter [facility] Date(s): 06/20/23 - 07/20/[address] [id number] Allergies, Adverse Reactions, Alerts Substance Reaction [...] 07/10/23 14:09:00 EDT, Route to Pharmacy Electronically, [facility], 183, cm, 01/23/23 10:48:00 EST, Height, 103.4, kg, 12/19/22 11:22:00 EST, Dry Weight Start Date: 07/10/23 Status: Ordered clotrimazole 1% topical cream 1 application, Topically, 2 times a day, # 60 Gm, 0 Refills, Maintenance, 06/29/23 16:50:00 EDT, Cream, [facility]/pharmacy #[id number], 1 application Topically 2 times a day, 183, cm, 01/23/23 10:48:00 EST, Height, 103.4, kg, 12/19/22 11:22:00 EST, Dry Weight Start Date: 06/29/23 Status: Ordered diclofenac 1% topical gel 1 application, Topically, 4 times a day, PRN for pain, # 100 Gm, 2 Refills, Maintenance, 02/17/22 18:10:00 EST, Gel, [facility]/pharmacy #[id number], 183, cm, 02/01/21 10:10:00 EST, Height Start Date: 02/17/22 Stop Date: 05/18/22 Status: Ordered fluticasone 50 mcg/inh nasal spray See Instructions, USE 1 SPRAY IN EACH NOSTRIL TWICE A DAY, # 48 mL, 1 Refills, Maintenance, 01/24/23 8:14:00 EST, [facility] [address], 90, USE 1 SPRAY IN EACH NOSTRIL [...] Maintenance,10/04/23 10:10:00 EDT, Route to Pharmacy Electronically, [facility]/pharmacy #[id number], Partial fill upon patient request if the prescription is for a schedule II... Start Date: 10/04/23 Stop Date: 04/01/24 Status: Ordered gabapentin 300 mg oral capsule 600 mg, 2, capsule, By Mouth, 3 times a day, for 30 days, # 180 capsule, Refills 5, Tot. Refills 5,Hard Stop 10/04/23 10:10:00 EDT, 04/07/23 10:10:00 EST, Route to Pharmacy Electronically, [facility]/pharmacy #[id number], Partial fill upon patient request if the... Start Date: 04/07/23 Stop Date: 10/04/23 Status: Ordered ibuprofen 800 mg oral tablet 1, tablet, By Mouth, 3 times a day, PRN, # 270 tablet, Refills 1, Maintenance, NEEDED FOR PAIN, 06/13/23 6:56:00 EDT, Route to Pharmacy Electronically, [facility]11, 183, cm, 01/23/23 10:48:00 EST, Height, 103.4, kg, 12/19/22 11:22:00 EST, Dry W... Start Date: 06/13/23 Status: Ordered montelukast 10 mg oral tablet 10 mg, 1, tablet, By Mouth, Daily, # 30 tablet, Refills 3, Tot. Refills 3, Maintenance, 06/27/22 10:37:00 EDT, Route to Pharmacy Electronically, [facility]/pharmacy #[id number], Partial fill upon patient request if [...] tablet, 0 Refills, Maintenance, 02/19/23 14:33:00 EST, [facility] [address]22, 183, cm, 01/23/23 10:48:00 EST, Height, 103.4, [...] 0 Refills, Maintenance, 07/14/23 7:09:00 EDT, Film, [facility]/pharmacy #[id number], Partial fill upon patient request if the prescription is for a schedule II opioid drug., 1 film Sublingual... Start Date: 07/14/23 Stop Date: 07/28/23 Status: Ordered SUMAtriptan 25 mg oral tablet See Instructions, TAKE 1 TABLET BY MOUTH ONCE AT ONSET OF HEADACHE. MAY REPEAT IN 2 HOURS, # 12 tablet, 1 Refills, Maintenance, 02/17/22 18:10:00 EST, [facility]/pharmacy #[id number], 183, cm, 02/01/21 10:10:00 EST, Height Start Date: 02/17/22 Status: Ordered traZODone 50 mg oral tablet 1, tablet, By Mouth, Daily at bedtime, # 30 tablet, Refills 3, Tot. Refills 3, Maintenance, 06/05/23 14:55:00 EDT, Route to Pharmacy Electronically, [facility]/pharmacy #207, 183, cm, 01/23/23 10:48:00 EST, Height, 103.4, kg, 12/19/22 11:22:00 EST, Dry Weight Start Date: 06/05/23 Status: Ordered Ventolin HFA 108 mcg/inh inhalation aerosol with adapter 1 puffs, Inhalation, 4 times a day, PRN NEEDED FOR WHEEZE, # 18 each, 1 Refills, Maintenance, 04/17/23 17:53:00 EDT, [facility], 183, cm, 01/23/23 10:48:00 EST, Height, 103.4, kg, 12/19/22 11:22:00 EST, Dry Weight Start Date: 04/17/23 Status: Ordered Wellbutrin XL 150 mg/24 hours oral tablet, extended release 1 tablet = 150 mg, By Mouth, Every 24 hours, # 30 tablet, 1 Refills, Maintenance, 12/05/22 12:03:00EDT, ER Tablet, [facility]/pharmacy #[id number], Partial fill upon patient request if the [...] Back Pain Scale: 22 on 05/21/14; initial [place]: 16 pm 05/21/14 Social History Social History Type Response Smoking Status Former smoker; Tobac co user in household: No entered on: 03/31/14 Sex Patient Care team information Care Team Personnel Name: Rob ACOSTA, Nahid Castanon Position: [facility] Physician - Primary Care Member Role: PCP Address: Address: [address] [place] [id number]- Care Team Related Persons Name: SADI GILBERT Address: home [address] [place] [address]
--- OUTSIDE RECORDS SUMMARY | 2024-01-01 12:12 | XMS_ITS | Continuity of Care Document ---
Author Organization [facility] Address [address] [place] [address]- Care Team Providers Care Salt Lifter Name Role Phone Nahid Rivas MD Primary Care Physician Encounter [facility] Date(s): 01/14/20 - 02/13/[address] [address]- Allergies, Adverse Reactions, Alerts Substance Reaction Severity [...] Refills, Maintenance, 01/20/20 18:51:00 EST, ER Tablet, [facility]/pharmacy #[id number], Partial fill upon patient request if the prescription is for a schedule II opioid drug.,... Start Date: 01/20/20 Status: Ordered Problem List Condition Effective Dates Status Health Status Inform ant Back pain(Confirmed) Active Somnolence(Confirmed) Active Limitation due to disability(Confirmed) 1 Active Obesity(Confirmed) Active Type 2 diabetes mellitus(Confirmed) Active Vitamin D deficiency(Confirmed) Active 1initial [place] Back Pain Scale: 22 on 05/21/14; initial [place]: 16 pm 05/21/14 Social History Social History Type Response Smoking Status Former smoker; Tobac co user in household: No entered on: 03/31/14 Sex
--- OUTSIDE RECORDS SUMMARY | 2024-01-01 12:12 | XMS_ITS | Continuity of Care Document ---
Author Organization [facility] Address [address] [place] [id number]- Care Team Providers Care Delivery Crew Member Name Role Phone Nahid Rivas MD Primary Care Physician [phone] Encounter [facility] Date(s): 11/17/23 - 12/17/[address] [address]- Allergies, Adverse Reactions, Alerts Substance Reaction Severity [...] 11/18/23 10:19:00 EDT, Route to Pharmacy Electronically, [facility]/pharmacy #[id number], 183, cm, 01/23/23 10:48:00 EST, Height, 103.4, kg, 12/19/22 11:22:00 EST, Dry Weight Start Date: 11/18/23 Status: Ordered clotrimazole 1% topical cream See Instructions, APPLY TO AFFECTED AREA TWICE A DAY, # 60 Gm, 0 Refills, Maintenance, 09/22/23 22:38:00 EDT, [facility] ST[facility] [id number], 30, APPLY TO AFFECTED AREA TWICE A DAY, 183, cm, 01/23/23 10:48:00 EST, Height, 103.4, kg, 12/19/22 11:22:00 EST, Dry Weight Start Date: 09/22/23 Status: Ordered diclofenac 1% topical gel 1 application, Topically, 4 times a day, PRN for pain, # 100 Gm, 2 Refills, Maintenance, 02/17/22 18:10:00 EST, [facility], cm, 02/01/21 10:10:00 EST, Height Start Date: 02/17/22 Stop Date: 05/18/22 Status: Ordered fluticasone 50 mcg/inh nasal spray See Instructions, USE 1 SPRAY IN EACH NOSTRIL TWICE A DAY, # 48 mL, 1 Refills, Maintenance, 01/24/23 8:14:00 EST, [facility], 90, USE 1 SPRAY IN EACH NOSTRIL [...] 10/04/23 10:10:00 EDT, Route to Pharmacy Electronically, [facility]/pharmacy #[id number], Partial fill upon patient request if the... Start Date: 10/04/23 Stop Date: 04/01/24 Status: Ordered gabapentin 300 mg oral capsule 600 mg, 2, capsule, By Mouth, 3 times a day, # 180 capsule, Refills 0, Tot. Refills 0, Maintenance,04/01/24 10:10:00 EST, Route to Pharmacy Electronically, [facility]/pharmacy #[id number], Partial fill upon patient request if the prescription is for a schedule II... Start Date: 04/01/24 Status: Ordered ibuprofen 800 mg oral tablet 1, tablet, By Mouth, 3 times a day, PRN, # 90 tablet, Refills 0, Tot. Refills 0, Maintenance, NEEDED FOR PAIN, 11/18/23 10:19:00 EDT, Route to Pharmacy Electronically, [facility]/pharmacy #[id number], 183, cm,01/23/23 10:48:00 EST, Height, 103.4, kg, 12/19/22... Start Date: 11/18/23 Status: Ordered montelukast 10 mg oral tablet 10 mg, 1, tablet, By Mouth, Daily, # 30 tablet, Refills 3, Tot. Refills 3, Maintenance, 06/27/22 10:37:00 EDT, Route to Pharmacy Electronically, [facility]/pharmacy #[id number], Partial fill upon [...] tablet, 0 Refills, Maintenance, 02/19/23 14:33:00 EST, [facility] STORE [address]70, 183, cm, 01/23/23 10:48:00 EST, Height, 103.4, [...] tablet, 1 Refills, Maintenance, 02/17/22 18:10:00 EST, [facility]/pharmacy #[id number], 183, cm, 02/01/21 10:10:00 EST, Height Start Date: 02/17/22 Status: Ordered traZODone 50 mg oral tablet 1, tablet, By Mouth, Daily at bedtime, # 30 tablet, Refills 0, Tot. Refills 0, Maintenance, 11/18/23 10:19:00 EDT, Route to Pharmacy Electronically, [facility]/pharmacy #[id number], 183, cm, 01/23/23 10:48:00 EST, Height, 103.4, kg, 12/19/22 11:22:00 EST, Dry Weight Start Date: 11/18/23 Status: Ordered Ventolin HFA 108 mcg/inh inhalation aerosol with adapter 1 puffs, Inhalation, 4 times a day, PRN NEEDED FOR WHEEZE, # 18 each, 1 Refills, Maintenance, 04/17/23 17:53:00 EDT, [facility], 183, cm, 01/23/23 10:48:00 EST, Height, 103.4, kg, 12/19/22 11:22:00 EST, Dry Weight Start Date: 04/17/23 Status: Ordered Wellbutrin XL 150 mg/24 hours oral tablet, extended release 1 tablet = 150 mg, By Mouth, Every 24 hours, # 30 tablet, 1 Refills, Maintenance, 12/05/22 12:03:00EDT, ER Tablet, [facility]/pharmacy #[id number], Partial fill upon patient request if the [...] Back Pain Scale: 22 on 05/21/14; initial [place]: 16 pm 05/21/14 Social History Social History Type Response Smoking Status Former smoker; Tobac co user in household: No entered on: 03/31/14 Sex Patient Care team information Care Team Personnel Name: Rob ACOSTA, Nahid Castanon Position: [facility] Physician - Primary Care Member Role: PCP Address: Address: [address] [place] [id number]- Care Team Related Persons Name: SADI GILBERT Address: home [address] [place] [id number]
--- OUTSIDE RECORDS SUMMARY | 2024-01-01 12:12 | XMS_ITS | Continuity of Care Document ---
Author Organization [facility] Address [address] [place] [address]- Care Team Providers Care Esthetician Spa Name Role Phone Nahid Rivas MD Primary Care Physician [phone] Encounter [facility] Date(s): 02/17/21 - 03/19/[address] [address]- Allergies, Adverse Reactions, Alerts Substance Reaction Severity [...] Gm, 5 Refills, Maintenance, 07/13/20 8:57:00 EDT, Roberta,[facility]/pharmacy #[id number], Partial fill upon [...] 02/17/21 16:16:00 EST, Route to Pharmacy Electronically, [facility]/pharmacy #[id number], Partial fill upon [...] By Mouth, Once, At onset of headache. June repeat in 2 hours, # 18 tablet, 0 Refills, Soft Stop, 01/25/21 11:02:00 EST, Tablet, [facility]/pharmacy #[id number], Partial fill upon patient request if the prescription is for a schedule II opioid drug... Start Date: 01/25/21 Status: Ordered tramadol 200 mg oral tablet, extended release See Instructions, 1-2 tablet By Mouth Daily, use 2nd tablet sparingly, # 45 tablet, 5 Refills, Maintenance, 02/03/21 9:30:00 EST, ER Tablet, [facility]/pharmacy #[id number], Partial fill upon [...] Back Pain Scale: 22 on 05/21/14; initial [place]: 16 pm 05/21/14 Social History Social History Type Response Smoking Status Former smoker; Tobac co user in household: No entered on: 03/31/14 Sex
--- OUTSIDE RECORDS SUMMARY | 2024-01-01 12:12 | XMS_ITS | Continuity of Care Document ---
Author Organization [facility] Address [address] [place] [address]- Care Team Providers Care Coder Operator Name Role Phone Rob ACOSTA, Nahid Castanon Primary Care Physician Encounter [facility] Date(s): 09/25/23 - 10/25/[address] [address] Allergies, [...] 08/08/23 13:16:00 EDT, Route to Pharmacy Electronically, [facility]/pharmacy #[id number], 183, cm, 01/23/23 10:48:00 EST, Height, 103.4, kg, 12/19/22 11:22:00 EST, Dry Weight Start Date: 08/08/23 Status: Ordered clotrimazole 1% topical cream See Instructions, APPLY TO AFFECTED AREA TWICE A DAY, # 60 Gm, 0 Refills, Maintenance, 09/22/23 22:38:00 EDT, [facility] [address], 30, APPLY TO AFFECTED AREA TWICE A DAY, 183, cm, 01/23/23 10:48:00 EST, Height, 103.4, kg, 12/19/22 11:22:00 EST, Dry Weight Start Date: 09/22/23 Status: Ordered diclofenac 1% topical gel 1 application, Topically, 4 times a day, PRN for pain, # 100 Gm, 2 Refills, Maintenance, 02/17/22 18:10:00 EST, Gel, [facility]/pharmacy #[id number], 183, cm, 02/01/21 10:10:00 EST, Height Start Date: 02/17/22 Stop Date: 05/18/22 Status: Ordered fluticasone 50 mcg/inh nasal spray See Instructions, USE 1 SPRAY IN EACH NOSTRIL TWICE A DAY, # 48 mL, 1 Refills, Maintenance, 01/24/23 8:14:00 EST, [facility] [address], 90, USE 1 SPRAY IN EACH NOSTRIL [...] check fasting sugars daily, 04/17/23 17:56:00 EDT, [facility], 183, cm, 01/23/23 10:48:00 EST, Height, 103.4, kg, 12/19/22 11:22:00 EST, Dry Weight Start Date: 04/17/23 Stop Date: 10/14/23 Status: Ordered gabapentin 300 mg oral capsule 600 mg, 2, capsule, By Mouth, 3 times a day, # 180 capsule, Refills 5, Tot. Refills 5, Maintenance,10/04/23 10:10:00 EDT, Route to Pharmacy Electronically, [facility]/pharmacy #[id number], Partial fill upon patient request if the prescription is for a schedule II... Start Date: 10/04/23 Stop Date: 04/01/24 Status: Ordered ibuprofen 800 mg oral tablet 1, tablet, By Mouth, 3 times a day, PRN, # 270 tablet, Refills 1, Maintenance, NEEDED FOR PAIN, 06/13/23 6:56:00 EDT, Route to Pharmacy Electronically, [facility] ST[facility] 37491, 183, cm, 01/23/23 10:48:00 EST, Height, 103.4, kg, 12/19/22 11:22:00 EST, Dry W... Start Date: 06/13/23 Status: Ordered montelukast 10 mg oral tablet 10 mg, 1, tablet, By Mouth, Daily, # 30 tablet, Refills 3, Tot. Refills 3, Maintenance, 06/27/22 10:37:00 EDT, Route to Pharmacy Electronically, [facility]/pharmacy #[id number], Partial fill upon patient request [...] Refills, Maintenance, 02/19/23 14:33:00 EST, [facility], 183, cm, 01/23/23 10:48:00 EST, Height, 103.4, [...] refills will be provided until you complete quired Labs and schedule a follow-up appointment with the Alex Quirogaoxone RN To this matter., # 28 film, 0 Refil... Start Date: 09/27/23 Stop Date: 10/11/23 Status: Ordered SUMAtriptan 25 mg oral tablet See Instructions, TAKE 1 TABLET BY MOUTH ONCE AT ONSET OF HEADACHE. MAY REPEAT IN 2 HOURS, # 12 tablet, 1 Refills, Maintenance, 02/17/22 18:10:00 EST, [facility]/pharmacy #[id number], 183, cm, 02/01/21 10:10:00 EST, Height Start Date: 02/17/22 Status: Ordered traZODone 50 mg oral tablet 1, tablet, By Mouth, Daily at bedtime, # 30 tablet, Refills 5, Tot. Refills 5, Maintenance, 08/07/23 15:59:00 EDT, Route to Pharmacy Electronically, [facility]/pharmacy #[id number], 183, cm, 01/23/23 10:48:00 EST, Height, 103.4, kg, 12/19/22 11:22:00 EST, Dry Weight Start Date: 08/07/23 Status: Ordered Ventolin HFA 108 mcg/inh inhalation aerosol with adapter 1 puffs, Inhalation, 4 times a day, PRN NEEDED FOR WHEEZE, # 18 each, 1 Refills, Maintenance, 04/17/23 17:53:00 EDT, [facility] STORE [address]2509, 183, cm, 01/23/23 10:48:00 EST, Height, 103.4, kg, 12/19/22 11:22:00 EST, Dry Weight Start Date: 04/17/23 Status: Ordered Wellbutrin XL 150 mg/24 hours oral tablet, extended release 1 tablet = 150 mg, By Mouth, Every 24 hours, # 30 tablet, 1 Refills, Maintenance, 12/05/22 12:03:00EDT, ER Tablet, [id number], Partial fill upon patient request if the [...] Back Pain Scale: 22 on 05/21/14; initial [place]: 16 pm 05/21/14 Social History Social History Type Response Smoking Status Former smoker; Tobac co user in household: No entered on: 03/31/14 Sex Patient Care team information Care Team Personnel Name: Rob ACOSTA, Nahid Castanon Position: [facility] Physician - Primary Care Member Role: PCP Address: Address: [address] [place] [id number]- Care Team Related Persons Name: SADI GILBERT Address: [address] [address]
--- OUTSIDE RECORDS SUMMARY | 2024-01-01 12:12 | XMS_ITS | Continuity of Care Document ---
Author Organization [facility] Address [address] [place] [address]- Care Team Providers Care Health And Wellness Coordinator Name Role Phone Nahid Rivas MD Primary Care Physician Encounter [facility] [place] Date(s): 04/04/22 - 04/04/[address] [address]- Discharge Disposition: A-D/C Walkout Attending Physician: Not on Staff, Attending MD Admitting Physician: Not on Staff, Admitting MD Referring Physician: Not on Staff, Referring MD Allergies, Adverse Reactions, Alerts Substance Reaction [...] Gm, 5 Refills, Maintenance, 02/17/22 18:10:00 EST, [place], [facility]/pharmacy #[id number], Partial fill upon patient [...] 10/01/21 8:32:00 EDT, Route to Pharmacy Electronically, [facility]/pharmacy #[id number], Partial fill upon patient [...] tablet, 1 Refills, Maintenance, 02/17/22 18:10:00 EST, [facility]/pharmacy #[id number], 183, cm, 02/01/21 10:10:00 EST, Height Start Date: 02/17/22 Status: Ordered tramadol 200 mg oral tablet, extended release See Instructions, 1-2 tablet By Mouth Daily, use 2nd tablet sparingly, # 45 tablet, 5 Refills, Maintenance, 02/08/22 8:38:00 EST, ER Tablet, [facility]/pharmacy #[id number], Partial fill upon patient [...] Back Pain Scale: 22 on 05/21/14; initial [place]: 16 pm 05/21/14 Social History Social History Type Response Smoking Status Former smoker; Tobac co user in household: No entered on: 03/31/14 Sex Patient Care team information Care Team Personnel Name: Rob ACOSTA, Nahid Castanon Position: [facility] Primary Care Physician Member Role: PCP Address: Address: [address] [place] [address]- Care Team Related Persons Name: SADI GILBERT Address: home [address] [place] [address]
--- OUTSIDE RECORDS SUMMARY | 2024-01-01 12:12 | XMS_ITS | Continuity of Care Document ---
Author Organization [facility] Address [address] [place] [address]- Care Team Providers Care Acetylene Gas Compressor Name Role Phone Nahid Rivas MD Primary Care Physician [phone] Encounter [facility] [place] Date(s): 07/18/22 - 08/17/[address] [address]- Allergies, Adverse Reactions, Alerts Substance Reaction Severity [...] Maintenance, 05/18/20 8:31:00 EDT, Cream, [facility]/pharmacy #[id number], 1 application Topically 2 times a day, 183, cm, 12/02/19 9:13:00 EDT, Height Start Date: 05/18/20 Status: Ordered diclofenac 1% topical gel 1 application, Topically, 4 times a day, PRN for pain, # 100 Gm, 2 Refills, Maintenance, 02/17/22 18:10:00 EST, Gel, [facility]/pharmacy #[id number], 183, cm, 02/01/21 10:10:00 EST, Height Start Date: 02/17/22 Stop Date: 05/18/22 Status: Ordered Flonase 50 mcg/inh nasal spray 1 sprays, Nares, Both, 2 times a day, # 16 Gm, 5 Refills, Maintenance, 02/17/22 18:10:00 EST, [place], [facility]/pharmacy #[id number], Partial fill upon patient request if [...] EDT, Route to Pharmacy Electronically, [facility]/pharmacy #[id number], Partial fill upon patient request if the prescription i... Start Date: 10/01/21 Status: Ordered montelukast 10 mg oral tablet 10 mg, 1, tablet, By Mouth, Daily, # 30 tablet, Refills 3, Tot. Refills 3, Maintenance, 06/27/22 10:37:00 EDT, Route to Pharmacy Electronically, [facility]/pharmacy #[id number], Partial fill upon patient request if [...] 07/12/22 12:59:00 EDT, ER Tablet, [facility]/pharmacy #[id number], Partial fill upon patient request if [...] Back Pain Scale: 22 on 05/21/14; initial [place]: 16 pm 05/21/14 Social History Social History Type Response Smoking Status Former smoker; Tobac co user in household: No entered on: 03/31/14 Sex Patient Care team information Care Team Personnel Name: Rob ACOSTA, Nahid Castanon Position: [facility] Physician - Primary Care Member Role: PCP Address: Address: [address] [place], [place] [id number]- Care Team Related Persons Name: SADI GILBERT Address: [address] [address]
--- OUTSIDE RECORDS SUMMARY | 2024-01-01 12:12 | XMS_ITS | Continuity of Care Document ---
Author Organization [facility] Address [address] [place] [address]- Care Team Providers Care Anesthesia Technician Name Role Phone Rob ACOSTA, Nahid Castanon Primary Care Physician [phone] Encounter [facility] [place] Date(s): 09/10/20 - 10/10/[address] [address] Allergies, Adverse Reactions, Alerts Substance Reaction [...] Gm, 5 Refills, Maintenance, 07/13/20 8:57:00 EDT, [place],[facility]/pharmacy #[id number], Partial fill upon patient request if [...] 07/13/20 9:02:00 EDT, Route to Pharmacy Electronically, [facility]/pharmacy #[id number], Partial fill upon patient request if the prescription is for a schedule II opi... Start Date: 07/13/20 Status: Ordered Neutral position wrist splints, medium, [...] Refills, Maintenance, 07/13/20 8:47:00 EDT, ER Tablet, [facility]/pharmacy #[id number], Partial fill upon patient request if the [...] Back Pain Scale: 22 on 05/21/14; initial [place]: 16 pm 05/21/14 Social History Social History Type Response Smoking Status Former smoker; Tobac co user in household: No entered on: 03/31/14 Sex
--- OUTSIDE RECORDS SUMMARY | 2024-01-01 12:12 | XMS_ITS | Continuity of Care Document ---
Author Organization [facility] Address [address] [place] [address]- Care Team Providers Care Police Sergeant Name Role Phone Nahid Rivas MD Primary Care Physician Encounter [facility] [place] Date(s): 07/14/22 - 08/13/[address] [address]- Allergies, Adverse Reactions, Alerts Substance Reaction Severity [...] Refills, Maintenance, 05/18/20 8:31:00 EDT, Cream, [facility]/pharmacy #[id number], 1 application Topically 2 times a day, 183, cm, 12/02/19 9:13:00 EDT, Height Start Date: 05/18/20 Status: Ordered diclofenac 1% topical gel 1 application, Topically, 4 times a day, PRN for pain, # 100 Gm, 2 Refills, Maintenance, 02/17/22 18:10:00 EST, Gel, [facility]/pharmacy #[id number], 183, cm, 02/01/21 10:10:00 EST, Height Start Date: 02/17/22 Stop Date: 05/18/22 Status: Ordered Flonase 50 mcg/inh nasal spray 1 sprays, Nares, Both, 2 times a day, # 16 Gm, 5 Refills, Maintenance, 02/17/22 18:10:00 EST, [place], [facility]/pharmacy #2071, Partial fill upon patient [...] 10/01/21 8:32:00 EDT, Route to Pharmacy Electronically, [facility]/pharmacy #[id number], Partial fill upon patient request if the prescription i... Start Date: 10/01/21 Status: Ordered montelukast 10 mg oral tablet 10 mg, 1, tablet, By Mouth, Daily, # 30 tablet, Refills 3, Tot. Refills 3, Maintenance, 06/27/22 10:37:00 EDT, Route to Pharmacy Electronically, [facility]/pharmacy #2071, Partial fill upon patient [...] Refills, Maintenance, 07/12/22 12:59:00 EDT, ER Tablet, [facility]/pharmacy #2071, Partial fill upon patient [...] Back Pain Scale: 22 on 05/21/14; initial [place]: 16 pm 05/21/14 Social History Social History Type Response Smoking Status Former smoker; Tobac co user in household: No entered on: 03/31/14 Sex Patient Care team information Care Team Personnel Name: Rob ACOSTA, Nahid Castanon Position: [facility] Physician - Primary Care Member Role: PCP Address: Address: [address] [place], [place] [phone]- Care Team Related Persons Name: SADI GILBERT Address: [address] [address]
--- OUTSIDE RECORDS SUMMARY | 2024-01-01 12:12 | XMS_ITS | Continuity of Care Document ---
Author Organization [facility] Address [address] [place] [address]- Care Team Providers Care General Doc Name Role Phone Rob ACOSTA, Nahid Castanon Primary Care Physician [phone] Encounter [facility] Date(s): 06/29/23 - 07/29/[address] [address] Allergies, Adverse Reactions, Alerts Substance [...] 07/10/23 14:09:00 EDT, Route to Pharmacy Electronically, [facility] [id number], 183, cm, 01/23/23 10:48:00 EST, Height, 103.4, kg, 12/19/22 11:22:00 EST, Dry Weight Start Date: 07/10/23 Status: Ordered clotrimazole 1% topical cream 1 application, Topically, 2 times a day, # 60 Gm, 0 Refills, Maintenance, 06/29/23 16:50:00 EDT, Cream, [facility]/pharmacy #[id number], 1 application Topically 2 times a day, 183, cm, 01/23/23 10:48:00 EST, Height, 103.4, kg, 12/19/22 11:22:00 EST, Dry Weight Start Date: 06/29/23 Status: Ordered diclofenac 1% topical gel 1 application, Topically, 4 times a day, PRN for pain, # 100 Gm, 2 Refills, Maintenance, 02/17/22 18:10:00 EST, Gel[id number] 183, cm, 02/01/21 10:10:00 EST, Height Start Date: 02/17/22 Stop Date: 05/18/22 Status: Ordered fluticasone 50 mcg/inh nasal spray See Instructions, USE 1 SPRAY IN EACH NOSTRIL TWICE A DAY, # 48 mL, 1 Refills, Maintenance, 01/24/23 8:14:00 EST, [facility] 95033, 90, USE 1 SPRAY IN EACH NOSTRIL [...] Maintenance,10/04/23 10:10:00 EDT, [facility], [facility] 04/07/23 10:10:00 EST, Route to Pharmacy Electronically, [facility]/pharmacy #[id number], Partial fill upon patient request if the... Start Date: 04/07/23 Stop Date: 10/04/23 Status: Ordered ibuprofen 800 mg oral tablet 1, tablet, By Mouth, 3 times a day, PRN, # 270 tablet, Refills 1, Maintenance, NEEDED FOR PAIN, 06/13/23 6:56:00 EDT, Route to Pharmacy Electronically, [facility] 24741, 183, cm, 01/23/23 10:48:00 EST, Height, 103.4, [...] 0 Refills, Maintenance, 02/19/23 14:33:00 EST, [facility] 74776, 183, cm, 01/23/23 10:48:00 EST, Height, 103.4, [...] tongue, # 28 film, 0 Refills, Maintenance, 07/28/23 7:09:00 EDT, Film, [facility]/pharmacy #2071, Partial fill upon patient request if the prescription is for a schedule II opioid drug., 1 film Sublingual... Start Date: 07/28/23 Stop Date: 08/11/23 Status: Ordered SUMAtriptan 25 mg oral tablet [...] 06/05/23 14:55:00 EDT, Route to Pharmacy Electronically, [facility]/pharmacy #207, 183, cm, 01/23/23 10:48:00 EST, Height, 103.4, kg, 12/19/22 11:22:00 EST, Dry Weight Start Date: 06/05/23 Status: Ordered Ventolin HFA 108 mcg/inh inhalation aerosol with adapter 1 puffs, Inhalation, 4 times a day, PRN NEEDED FOR WHEEZE, # 18 each, 1 Refills, Maintenance, 04/17/23 17:53:00 EDT, [facility], 183, cm, 01/23/23 10:48:00 EST, Height, 103.4, kg, 12/19/22 11:22:00 EST, Dry Weight Start Date: 04/17/23 Status: Ordered Wellbutrin XL 150 mg/24 hours oral tablet, extended release 1 tablet = 150 mg, By Mouth, Every 24 hours, # 30 tablet, 1 Refills, Maintenance, 12/05/22 12:03:00EDT, ER Tablet, [facility]/pharmacy #[id number], Partial fill upon patient request if the [...] Pain Scale: 22 on 05/21/14; initial [place]: 16 pm 05/21/14 Social History Social History Type Response Smoking Status Former smoker; Tobac co user in household: No entered on: 03/31/14 Sex Patient Care team information Care Team Personnel Name: Rob ACOSTA, Nahid Castanon Position: [facility] Physician - Primary Care Member Role: PCP Address: Address: [address] [place] [address]- Care Team Related Persons Name: SADI GILBERT Address: home [address] [place] [address]
--- OUTSIDE RECORDS SUMMARY | 2024-01-01 12:12 | XMS_ITS | Continuity of Care Document ---
Author Organization [facility] Address [address] [place] [address]- Care Team Providers Care Rn Case Manager Name Role Phone Nahid Rivas MD Primary Care Physician Encounter [facility] [place] Date(s): 03/30/23 - 04/29/23 [facility] [address] [place] [id number] Attending Physician: Admtr, Laura Admitting Physician: Admtr, Hardy8 Referring Physician: Admtr, [...] 02/19/23 14:33:00 EST, Route to Pharmacy Electronically, [facility] ST[facility] 532[facility], 183, cm, 01/23/23 10:48:00 EST, Height, 103.4, kg, 12/19/22 11:22:00 EST, Dry Weight Start Date: 02/19/23 Status: Ordered clotrimazole 1% topical cream 1 application, Topically, 2 times a day, # 60 Gm, 0 Refills, Maintenance, 05/18/20 8:31:00 EDT, Cream, [facility]/pharmacy #[id number], 1 application Topically 2 times a day, 183, cm, 12/02/19 9:13:00 EDT, Height Start Date: 05/18/20 Status: Ordered diclofenac 1% topical gel 1 application, Topically, 4 times a day, PRN for pain, # 100 Gm, 2 Refills, Maintenance, 02/17/22 18:10:00 EST, Gel, [facility]/pharmacy #[id number], 183, cm, 02/01/21 10:10:00 EST, Height Start Date: 02/17/22 Stop Date: 05/18/22 Status: Ordered fluticasone 50 mcg/inh nasal spray See Instructions, USE 1 SPRAY IN EACH NOSTRIL TWICE A DAY, # 48 mL, 1 Refills, Maintenance, 01/24/23 8:14:00 EST, [facility] ST[facility] 30541, 90, USE 1 SPRAY IN EACH NOSTRIL [...] Maintenance,04/07/23 10:10:00 EST, Route to Pharmacy Electronically, [facility]/pharmacy #[id number], Partial fill upon patient request if the prescription is for a schedule II... Start Date: 04/07/23 Stop Date: 10/04/23 Status: Ordered ibuprofen 800 mg oral tablet 800 mg, 1, tablet, By Mouth, 3 times a day, PRN, # 270 tablet, Refills 1, Tot. Refills 1, Maintenance, Pain , Moderate, 12/19/22 11:49:00 EST, Route to Pharmacy Electronically, [facility]/pharmacy #[id number], Partial fill upon patient request if the prescription... Start Date: 12/19/22 Status: Ordered montelukast 10 mg oral tablet 10 mg, 1, tablet, By Mouth, Daily, # 30 tablet, Refills 3, Tot. Refills 3, Maintenance, 06/27/22 10:37:00 EDT, Route to Pharmacy Electronically, [facility]/pharmacy #[id number], Partial fill upon patient request [...] Refills, Maintenance, 02/19/23 14:33:00 EST, [facility], 183, cm, 01/23/23 10:48:00 EST, Height, 103.4, [...] 05/01/23 17:54:00 EDT, 04/24/23 17:54:00 EDT, Film, [facility]/pharmacy #2071, Partial fill upon patient request if the prescription is for a schedule I... Start Date: 04/24/23 Stop Date: 05/01/23 Status: Ordered Suboxone 8 mg-2 mg sublingual film 1 film, Sublingual, 2 times a day, dissolve under the tongue, # 14 film, 0 Refills, Maintenance, 05/01/23 17:54:00 EDT, Film, [facility]/pharmacy #[id number], Partial fill upon patient request [...] EST, Route to Pharmacy Electronically, [facility], 183, cm, 01/23/23 10:48:00 EST, Height, 103.4, kg, 12/19/22 11:22:00 EST, Dry Weight Start Date: 02/19/23 Status: Ordered Ventolin HFA 108 mcg/inh inhalation aerosol with adapter 1 puffs, Inhalation, 4 times a day, PRN NEEDED FOR WHEEZE, # 18 each, 1 Refills, Maintenance, 04/17/23 17:53:00 EDT, [facility], 183, cm, 01/23/23 10:48:00 EST, Height, 103.4, kg, 12/19/22 11:22:00 EST, Dry Weight Start Date: 04/17/23 Status: Ordered Wellbutrin XL 150 mg/24 hours oral tablet, extended release 1 tablet = 150 mg, By Mouth, Every 24 hours, # 30 tablet, 1 Refills, Maintenance, 12/05/22 12:03:00EDT, ER Tablet, [facility]/pharmacy #2311, Partial fill upon patient request if the [...] Back Pain Scale: 22 on 05/21/14; initial [place]: 16 pm 05/21/14 Social History Social History Type Response Smoking Status Former smoker; Tobac co user in household: No entered on: 03/31/14 Sex Patient Care team information Care Team Personnel Name: Rob ACOSTA, Nahid Castanon Position: [facility] Physician - Primary Care Member Role: PCP Address: Address: [address] [place] [address]- Care Team Related Persons Name: SADI GILBERT Address: home [address] [place] [address]
--- OUTSIDE RECORDS SUMMARY | 2024-01-01 12:12 | XMS_ITS | Continuity of Care Document ---
Author Organization [facility] Address [address] [place] [address]- Care Team Providers Care Electric Freight Car Operator Name Role Phone Nahid Rivas MD Primary Care Physician [phone] [place] [facility] Date(s): 11/17/23 - 12/17/[address] [address]- Allergies, Adverse Reactions, Alerts Substance Reaction Severity [...] 11/18/23 10:19:00 EDT, Route to Pharmacy Electronically, [facility]/pharmacy #[id number], 183, cm, 01/23/23 10:48:00 EST, Height, 103.4, kg, 12/19/22 11:22:00 EST, Dry Weight Start Date: 11/18/23 Status: Ordered clotrimazole 1% topical cream See Instructions, APPLY TO AFFECTED AREA TWICE A DAY, # 60 Gm, 0 Refills, Maintenance, 09/22/23 22:38:00 EDT, [facility] 98085, 30, APPLY TO AFFECTED AREA TWICE A DAY, 183, cm, 01/23/23 10:48:00 EST, Height, 103.4, kg, 12/19/22 11:22:00 EST, Dry Weight Start Date: 09/22/23 Status: Ordered diclofenac 1% topical gel 1 application, Topically, 4 times a day, PRN for pain, # 100 Gm, 2 Refills, Maintenance, 02/17/22 18:10:00 EST, Gel[facility], cm, 02/01/21 10:10:00 EST, Height Start Date: 02/17/22 Stop Date: 05/18/22 Status: Ordered fluticasone 50 mcg/inh nasal spray See Instructions, USE 1 SPRAY IN EACH NOSTRIL TWICE A DAY, # 48 mL, 1 Refills, Maintenance, 01/24/23 8:14:00 EST, [facility], 90, USE 1 SPRAY IN EACH NOSTRIL [...] 10/04/23 10:10:00 EDT, Route to Pharmacy Electronically, [facility]/pharmacy #2071, Partial fill upon patient request if the... Start Date: 10/04/23 Stop Date: 04/01/24 Status: Ordered gabapentin 300 mg oral capsule 600 mg, 2, capsule, By Mouth, 3 times a day, # 180 capsule, Refills 0, Tot. Refills 0, Maintenance,04/01/24 10:10:00 EST, Route to Pharmacy Electronically, [facility]/pharmacy #2071, Partial fill upon patient request if the prescription is for a schedule II... Start Date: 04/01/24 Status: Ordered ibuprofen 800 mg oral tablet 1, tablet, By Mouth, 3 times a day, PRN, # 90 tablet, Refills 0, Tot. Refills 0, Maintenance, NEEDED FOR PAIN, 11/18/23 10:19:00 EDT, Route to Pharmacy Electronically, [facility]/pharmacy #2071, 183, cm,01/23/23 10:48:00 EST, Height, 103.4, kg, 12/19/22... Start Date: 11/18/23 Status: Ordered montelukast 10 mg oral tablet 10 mg, 1, tablet, By Mouth, Daily, # 30 tablet, Refills 3, Tot. Refills 3, Maintenance, 06/27/22 10:37:00 EDT, Route to Pharmacy Electronically, [facility]/pharmacy #[id number], Partial fill upon patient request [...] tablet, 0 Refills, Maintenance, 02/19/23 14:33:00 EST, [facility] 21704, 183, cm, 01/23/23 10:48:00 EST, Height, 103.4, [...] Refills, Maintenance, 02/17/22 18:10:00 EST, [facility]/pharmacy #2071, 183, cm, 02/01/21 10:10:00 EST, Height Start Date: 02/17/22 Status: Ordered traZODone 50 mg oral tablet 1, tablet, By Mouth, Daily at bedtime, # 30 tablet, Refills 0, Tot. Refills 0, Maintenance, 11/18/23 10:19:00 EDT, Route to Pharmacy Electronically, [facility]/pharmacy #2071, 183, cm, 01/23/23 10:48:00 EST, Height, 103.4, kg, 12/19/22 11:22:00 EST, Dry Weight Start Date: 11/18/23 Status: Ordered Ventolin HFA 108 mcg/inh inhalation aerosol with adapter 1 puffs, Inhalation, 4 times a day, PRN NEEDED FOR WHEEZE, # 18 each, 1 Refills, Maintenance, 04/17/23 17:53:00 EDT, [facility], 183, cm, 01/23/23 10:48:00 EST, Height, 103.4, kg, 12/19/22 11:22:00 EST, Dry Weight Start Date: 04/17/23 Status: Ordered Wellbutrin XL 150 mg/24 hours oral tablet, extended release 1 tablet = 150 mg, By Mouth, Every 24 hours, # 30 tablet, 1 Refills, Maintenance, 12/05/22 12:03:00EDT, ER Tablet, [facility]/pharmacy #3951, Partial fill upon patient request if the [...] Back Pain Scale: 22 on 05/21/14; initial [place]: 16 pm 05/21/14 Social History Social History Type Response Smoking Status Former smoker; Tobac co user in household: No entered on: 03/31/14 Sex Patient Care team information Care Team Personnel Name: Rob ACOSTA, Nahid Castanon Position: [facility] Physician - Primary Care Member Role: PCP Address: Address: [address] [place] [address]- Care Team Related Persons Name: SADI GILBERT Address: home [address] [place] [address]
--- OUTSIDE RECORDS SUMMARY | 2024-01-01 12:12 | XMS_ITS | Continuity of Care Document ---
Author Organization [facility] Address [address] [place] [address]- Care Team Providers Care Area Manager Name Role Phone Nahid Rivas MD Primary Care Physician [place] [facility] [place]/11/[place] - 08/10/[address] [address]- Allergies, Adverse Reactions, Alerts Substance Reaction Severity [...] 0 Refills, Maintenance, 05/18/20 8:31:00 EDT, Cream, [facility]/pharmacy #[id number], 1 application Topically 2 times a day, 183, cm, 12/02/19 9:13:00 EDT, Height Start Date: 05/18/20 Status: Ordered diclofenac 1% topical gel 1 application, Topically, 4 times a day, PRN for pain, # 100 Gm, 2 Refills, Maintenance, 02/17/22 18:10:00 EST, Gel, [facility]/pharmacy #[id number], 183, cm, 02/01/21 10:10:00 EST, Height Start Date: 02/17/22 Stop Date: 05/18/22 Status: Ordered Flonase 50 mcg/inh nasal spray 1 sprays, Nares, Both, 2 times a day, # 16 Gm, 5 Refills, Maintenance, 02/17/22 18:10:00 EST, [place], [facility]/pharmacy #[id number], Partial fill upon patient request [...] 10/01/21 8:32:00 EDT, Route to Pharmacy Electronically, [facility]/pharmacy #[id number], Partial fill upon patient request if the prescription i... Start Date: 10/01/21 Status: Ordered montelukast 10 mg oral tablet 10 mg, 1, tablet, By Mouth, Daily, # 30 tablet, Refills 3, Tot. Refills 3, Maintenance, 06/27/22 10:37:00 EDT, Route to Pharmacy Electronically, [facility]/pharmacy #[id number], Partial fill upon patient request [...] Refills, Maintenance, 07/12/22 12:59:00 EDT, ER Tablet, [facility]/pharmacy #[id number], Partial fill upon patient request [...] Back Pain Scale: 22 on 05/21/14; initial [place]: 16 pm 05/21/14 Social History Social History Type Response Smoking Status Former smoker; Tobac co user in household: No entered on: 03/31/14 Sex Patient Care team information Care Team Personnel Name: Rob ACOSTA, Nahid Castanon Position: [facility] Physician - Primary Care Member Role: PCP Address: Address: [address] [place], [place] [phone]- Care Team Related Persons Name: SADI GILBERT Address: [address] [address]
--- OUTSIDE RECORDS SUMMARY | 2024-01-01 12:12 | XMS_ITS | Continuity of Care Document ---
Author Organization [facility] Address [address] [place] [address]- Care Team Providers Care Embedded Engineer Name Role Phone Nahid Rivas MD Primary Care Physician Encounter [facility] [place] Date(s): 07/03/20 - 08/02/[address] [address]- Allergies, Adverse Reactions, Alerts Substance Reaction Severity [...] Gm, 5 Refills, Maintenance, 07/13/20 8:57:00 EDT, [place],[facility]/pharmacy #[id number], Partial fill upon patient request [...] 07/13/20 9:02:00 EDT, Route to Pharmacy Electronically, [facility]/pharmacy #[id number], Partial fill upon patient request if the prescription is for a schedule II opi... Start Date: 07/13/20 Status: Ordered ipratropium nasal 21 mcg/inh spray 2 sprays, Nares, Both, 3 times a day, # 30 mL, 1 Refills, Acute 09/12/20 12:00:00 EDT, 07/13/20 8:58:00 EDT, [place], [facility]/pharmacy #[id number], Partial fill upon patient request [...] Refills, Maintenance, 07/13/20 8:47:00 EDT, ER Tablet, [facility]/pharmacy #8772, Partial fill upon patient request if the [...] Back Pain Scale: 22 on 05/21/14; initial [place]: 16 pm 05/21/14 Social History Social History Type Response Smoking Status Former smoker; Tobac co user in household: No entered on: 03/31/14 Sex
--- OUTSIDE RECORDS SUMMARY | 2024-01-01 12:12 | XMS_ITS | Continuity of Care Document ---
Author Organization [facility] Address [address] [place] [address]- Care Team Providers Care U.[place]. Senator Name Role Phone Rob ACOSTA, Nahid Castanon Primary Care Physician Encounter [facility] [place] Date(s): 02/14/23 - 04/26/[address] [address]- Attending Physician: Robin An MD Admitting Physician: [...] 02/19/23 14:33:00 EST, Route to Pharmacy Electronically, [facility], 183, cm, 01/23/23 10:48:00 EST, Height, 103.4, kg, 12/19/22 11:22:00 EST, Dry Weight Start Date: 02/19/23 Status: Ordered clotrimazole 1% topical cream 1 application, Topically, 2 times a day, # 60 Gm, 0 Refills, Maintenance, 05/18/20 8:31:00 EDT, Cream, [facility]/pharmacy #[id number], 1 application Topically 2 times a day, 183, cm, 12/02/19 9:13:00 EDT, Height Start Date: 05/18/20 Status: Ordered diclofenac 1% topical gel 1 application, Topically, 4 times a day, PRN for pain, # 100 Gm, 2 Refills, Maintenance, 02/17/22 18:10:00 EST, Gel, [facility]/pharmacy #[id number], 183, cm, 02/01/21 10:10:00 EST, Height Start Date: 02/17/22 Stop Date: 05/18/22 Status: Ordered fluticasone 50 mcg/inh nasal spray See Instructions, USE 1 SPRAY IN EACH NOSTRIL TWICE A DAY, # 48 mL, 1 Refills, Maintenance, 01/24/23 8:14:00 EST, [facility], 90, USE 1 SPRAY IN EACH NOSTRIL [...] Maintenance,04/07/23 10:10:00 EST, Route to Pharmacy Electronically, [facility]/pharmacy #[id number], Partial fill upon patient request if the prescription is for a schedule II... Start Date: 04/07/23 Stop Date: 10/04/23 Status: Ordered ibuprofen 800 mg oral tablet 800 mg, 1, tablet, By Mouth, 3 times a day, PRN, # 270 tablet, Refills 1, Tot. Refills 1, Maintenance, Pain , Moderate, 12/19/22 11:49:00 EST, Route to Pharmacy Electronically, [facility]/pharmacy #[id number], Partial fill upon patient request if the prescription... Start Date: 12/19/22 Status: Ordered montelukast 10 mg oral tablet 10 mg, 1, tablet, By Mouth, Daily, # 30 tablet, Refills 3, Tot. Refills 3, Maintenance, 06/27/22 10:37:00 EDT, Route to Pharmacy Electronically, [facility]/pharmacy #[id number], Partial fill upon patient [...] tablet, 0 Refills, Maintenance, 02/19/23 14:33:00 EST, [facility], 183, cm, 01/23/23 10:48:00 EST, Height, 103.4, [...] 0 Refills, Maintenance, 04/24/23 17:54:00 EDT, Film, [facility]/pharmacy #[id number], Partial fill upon patient request if the prescriptionis for a schedule II opioid drug., 1 film Sublingua... Start Date: 04/24/23 Stop Date: 05/01/23 Status: Ordered SUMAtriptan 25 mg oral tablet See Instructions, TAKE 1 TABLET BY MOUTH ONCE AT ONSET OF HEADACHE. MAY REPEAT IN 2 HOURS, # 12 tablet, 1 Refills, Maintenance, 02/17/22 18:10:00 EST, [facility]/pharmacy #[id number], 183, cm, 02/01/21 10:10:00 EST, Height Start Date: 02/17/22 Status: Ordered traZODone 50 mg oral tablet 1, tablet, By Mouth, Daily at bedtime, # 30 tablet, Refills 0, Maintenance, 02/19/23 14:33:00 EST, Route to Pharmacy Electronically, [facility], 183, cm, 01/23/23 10:48:00 EST, Height, 103.4, kg, 12/19/22 11:22:00 EST, Dry Weight Start Date: 02/19/23 Status: Ordered Ventolin HFA 108 mcg/inh inhalation aerosol with adapter 1 puffs, Inhalation, 4 times a day, PRN NEEDED FOR WHEEZE, # 18 each, 1 Refills, Maintenance, 04/17/23 17:53:00 EDT, [facility], 183, cm, 01/23/23 10:48:00 EST, Height, 103.4, kg, 12/19/22 11:22:00 EST, Dry Weight Start Date: 04/17/23 Status: Ordered Wellbutrin XL 150 mg/24 hours oral tablet, extended release 1 tablet = 150 mg, By Mouth, Every 24 hours, # 30 tablet, 1 Refills, Maintenance, 12/05/22 12:03:00EDT, ER Tablet, [facility], Partial fill upon patient request if the [...] Back Pain Scale: 22 on 05/21/14; initial [place]: 16 pm 05/21/14 Social History Social History Type Response Smoking Status Former smoker; Tobac co user in household: No entered on: 03/31/14 Sex Patient Care team information Care Team Personnel Name: Rob ACOSTA, Nahid Castanon Position: [facility] Physician - Primary Care Member Role: PCP Address: Address: [address] [place] [address]- Care Team Related Persons Name: SADI GILBERT Address: home [address] [place] [id number]
--- OUTSIDE RECORDS SUMMARY | 2024-01-01 12:12 | XMS_ITS | Continuity of Care Document ---
Author Organization [facility] Address [address] [place] [address]- Care Team Providers Care Checker Product Design Name Role Phone Nahid Rivas MD Primary Care Physician [place] [facility] [place] [facility] [id number] Date(s): 09/23/19 - 10/23/[address] [address]- [facility] Attending Physician: Admtr, Ar8 Admitting Physician: Admtr, Ar8 Referring Physician: Admtr, [...] 2 Refills, Maintenance, 09/23/19 8:52:00 EDT, Gel, [facility]/pharmacy #2070, 183, cm, 09/23/19 8:40:00 EDT, Height Start [...] 12:28:00 EDT, 09/03/19 12:28:00 EDT, ER Tablet, [facility]/pharmacy #1, 183, cm, 02/11/19 8:37:00 EST, Height Start Date: 09/03/19 Stop Date: 12/02/19 Status: Ordered tramadol 200 mg oral tablet, extended release 1-2 tablets, By Mouth, Daily, PRN Pain , Moderate, Dx: chronic back pain; massPat checked, # 45 tablet, 2 Refills, Maintenance, 12/02/19 12:28:00 EDT, ER Tablet, [facility], 183, cm, 208:40:00 EDT, Height Start Date: 12/02/19 Stop Date: 03/01/20 Status: Ordered Problem List Condition Effective Dates Status Health Status Inform ant Back pain(Confirmed) Active Somnolence(Confirmed) Active Limitation due to disability(Confirmed) 1 Active Obesity(Confirmed) Active Sleep apnea(Confirmed) Active Type 2 diabetes mellitus(Confirmed) Active Vitamin D deficiency(Confirmed) Active 1initial [place] Back Pain Scale: 22 on 05/21/14; initial [place]: 16 pm 05/21/14 Social History Social History Type Response Smoking Status Former smoker; Tobac co user in household: No entered on: 03/31/14 Sex
--- OUTSIDE RECORDS SUMMARY | 2024-01-01 12:12 | XMS_ITS | Continuity of Care Document ---
Author Organization [facility] Address [address] [place] [address]- Care Team Providers Care Rental Clerk Name Role Phone Rob ACOSTA, Nahid Castanon Primary Care Physician [phone] Encounter [facility] Date(s): 03/13/23 - 04/12/[address] [address] Allergies, Adverse Reactions, Alerts Substance Reaction [...] 10:32:00 EST, Aerosol, Route to Pharmacy Electronically, [id number], [facility]/pharmacy #[id number], 183, cm, 01/23/23 10:48:00 EST, Heigh... Start [...] 02/19/23 14:33:00 EST, Route to Pharmacy Electronically, [facility], 183, cm, 01/23/23 10:48:00 EST, Height, 103.4, kg, 12/19/22 11:22:00 EST, Dry Weight Start Date: 02/19/23 Status: Ordered clotrimazole 1% topical cream 1 application, Topically, 2 times a day, # 60 Gm, 0 Refills, Maintenance, 05/18/20 8:31:00 EDT, Cream, [facility]/pharmacy #[id number], 1 application Topically 2 times a day, 183, cm, 12/02/19 9:13:00 EDT, Height Start Date: 05/18/20 Status: Ordered diclofenac 1% topical gel 1 application, Topically, 4 times a day, PRN for pain, # 100 Gm, 2 Refills, Maintenance, 02/17/22 18:10:00 EST, Gel, [facility], 183, cm, 02/01/21 10:10:00 EST, Height Start Date: 02/17/22 Stop Date: 05/18/22 Status: Ordered fluticasone 50 mcg/inh nasal spray See Instructions, USE 1 SPRAY IN EACH NOSTRIL TWICE A DAY, # 48 mL, 1 Refills, Maintenance, 01/24/23 8:14:00 EST, [facility], 90, USE 1 SPRAY IN EACH NOSTRIL [...] Maintenance,04/07/23 10:10:00 EST, Route to Pharmacy Electronically, [facility]/pharmacy #[id number], Partial fill upon patient request if the prescription is for a schedule II... Start Date: 04/07/23 Stop Date: 10/04/23 Status: Ordered ibuprofen 800 mg oral tablet 800 mg, 1, tablet, By Mouth, 3 times a day, PRN, # 270 tablet, Refills 1, Tot. Refills 1, Maintenance, Pain , Moderate, 12/19/22 11:49:00 EST, Route to Pharmacy Electronically, [facility]/pharmacy #[id number], Partial fill upon patient request if the prescription... Start Date: 12/19/22 Status: Ordered montelukast 10 mg oral tablet 10 mg, 1, tablet, By Mouth, Daily, # 30 tablet, Refills 3, Tot. Refills 3, Maintenance, 06/27/22 10:37:00 EDT, Route to Pharmacy Electronically, [facility]/pharmacy #[id number], Partial fill upon [...] Refills, Maintenance, 02/19/23 14:33:00 EST, [facility], 183, cm, 01/23/23 10:48:00 EST, Height, 103.4, [...] 0 Refills, Maintenance, 04/06/23 12:27:00 EST, Film, [facility]/pharmacy #2071, Partial fill upon patient request if the prescriptionis for a schedule II opioid drug., 1 film Sublingua... Start Date: 04/06/23 Stop Date: 04/13/23 Status: Ordered SUMAtriptan 25 mg oral tablet See Instructions, TAKE 1 TABLET BY MOUTH ONCE AT ONSET OF HEADACHE. MAY REPEAT IN 2 HOURS, # 12 tablet, 1 Refills, Maintenance, 02/17/22 18:10:00 EST, [facility]/pharmacy #2071, 183, cm, 02/01/21 10:10:00 EST, Height Start Date: 02/17/22 Status: Ordered traZODone 50 mg oral tablet 1, tablet, By Mouth, Daily at bedtime, # 30 tablet, Refills 0, Maintenance, 02/19/23 14:33:00 EST, Route to Pharmacy Electronically, [facility], 183, cm, 01/23/23 10:48:00 EST, Height, 103.4, kg, 12/19/22 11:22:00 EST, Dry Weight Start Date: 02/19/23 Status: Ordered Wellbutrin XL 150 mg/24 hours oral tablet, extended release 1 tablet = 150 mg, By Mouth, Every 24 hours, # 30 tablet, 1 Refills, Maintenance, 12/05/22 12:03:00EDT, ER Tablet, [facility], Partial fill upon patient request if the [...] Back Pain Scale: 22 on 05/21/14; initial [place]: 16 pm 05/21/14 Social History Social History Type Response Smoking Status Former smoker; Tobac co user in household: No entered on: 03/31/14 Sex Patient Care team information Care Team Personnel Name: Nahid Rivas MD Position: S Physician - Primary Care Member Role: PCP Address: Address: [address] [place] [address]- Care Team Related Persons Name: SADI GILBERT Address: home [address] [place] [address]
--- OUTSIDE RECORDS SUMMARY | 2024-01-01 12:12 | XMS_ITS | Continuity of Care Document ---
Author Organization [facility] Address [address] [place] [address]- Care Team Providers Care Patient Support Tech Name Role Phone Nahid Rivas MD Primary Care Physician [place] [facility] [id number] Date(s): 07/10/20 - 08/09/[address] [address]- Attending Physician: Laura Arauz Admitting Physician: Admtr, Ar8 Referring Physician: Admtr, [...] Gm, 5 Refills, Maintenance, 07/13/20 8:57:00 EDT, [place],[facility]/pharmacy #2071, Partial fill upon patient request if [...] 07/13/20 9:02:00 EDT, Route to Pharmacy Electronically, [facility]/pharmacy #2071, Partial fill upon patient request if the prescription is for a schedule II opi... Start Date: 07/13/20 Status: Ordered ipratropium nasal 21 mcg/inh spray 2 sprays, Nares, Both, 3 times a day, # 30 mL, 1 Refills, Acute 09/12/20 12:00:00 EDT, 07/13/20 8:58:00 EDT, [place], [facility]/pharmacy #2071, Partial fill upon patient request if [...] Refills, Maintenance, 07/13/20 8:47:00 EDT, ER Tablet, [facility]/pharmacy #2449, Partial fill upon patient request if the [...] Back Pain Scale: 22 on 05/21/14; initial [place]: 16 pm 05/21/14 Social History Social History Type Response Smoking Status Former smoker; Tobac co user in household: No entered on: 03/31/14 Sex
--- OUTSIDE RECORDS SUMMARY | 2024-01-01 12:12 | XMS_ITS | Continuity of Care Document ---
Author Organization [facility] Address [address] [place] [address]- Care Team Providers Care Assistant Infant Toddler Teacher Name Role Phone Nahid Rivas MD Primary Care Physician [phone] [place] [facility] [place] [id number] Date(s): 12/19/22 - 01/25/[address] [address]- Attending Physician: Nahid Rivas MD Admitting Physician: [...] EDT, Height Start Date: 06/27/22 Status: Ordered buprenorphine-naloxone 4 mg-1 mg sublingual film 1 film, Sublingual, Daily, In combo with 8mg for 12mg daily total, # 10 film, 0 Refills, Maintenance, 01/23/23 12:16:00 EST, [facility]/pharmacy #2071, Partial fill upon patient request if the prescription is for a schedule II opioid drug., 1 film Sublingual... Start Date: 01/23/23 Stop Date: 02/02/23 Status: Ordered cloNIDine 0.1 mg oral tablet 0.1 mg, 1, tablet, By Mouth, 4 times a day, # 120 tablet, Refills 0, Tot. Refills 0, Maintenance, 01/23/23 12:19:00 EST, Route to Pharmacy Electronically, [facility]/pharmacy #2071, Partial fill upon patient request if the prescription is for a schedule II o... Start Date: 01/23/23 Status: Ordered clotrimazole 1% topical cream 1 application, Topically, 2 times a day, # 60 Gm, 0 Refills, Maintenance, 05/18/20 8:31:00 EDT, Cream, [facility]/pharmacy #[id number], 1 application Topically 2 times a day, 183, cm, 12/02/19 9:13:00 EDT, Height Start Date: 05/18/20 Status: Ordered diclofenac 1% topical gel 1 application, Topically, 4 times a day, PRN for pain, # 100 Gm, 2 Refills, Maintenance, 02/17/22 18:10:00 EST, Gel, [facility]/pharmacy #2071, 183, cm, 02/01/21 10:10:00 EST, Height Start Date: 02/17/22 Stop Date: 05/18/22 Status: Ordered fluticasone 50 mcg/inh nasal spray See Instructions, USE 1 SPRAY IN EACH NOSTRIL TWICE A DAY, # 48 mL, 1 Refills, Maintenance, 01/24/23 8:14:00 EST, [facility], 90, USE 1 SPRAY IN EACH NOSTRIL [...] Mouth, 3 times a day, # 90 capsule, Refills 0, Tot. Refills 0, Maintenance, 01/23/23 12:19:00 EST, Route to Pharmacy Electronically, [facility]/pharmacy #2071, Partial fill upon patient request if the prescription is for a schedule II... Start Date: 01/23/23 Status: Ordered ibuprofen 800 mg oral tablet 800 mg, 1, tablet, By Mouth, 3 times a day, PRN, # 270 tablet, Refills 1, Tot. Refills 1, Maintenance, Pain , Moderate, 12/19/22 11:49:00 EST, Route to Pharmacy Electronically, [facility]/pharmacy #2071, Partial fill upon patient request if the prescription... Start Date: 12/19/22 Status: Ordered montelukast 10 mg oral tablet 10 mg, 1, tablet, By Mouth, Daily, # 30 tablet, Refills 3, Tot. Refills 3, Maintenance, 06/27/22 10:37:00 EDT, [facility] to Pharmacy Electronically, [facility] tablet, 0 Refills, Maintenance, 01/23/23 12:20:00EST, Tablet, [facility]/pharmacy #2071, Partial fill [...] tongue, # 10 film, 0 Refills, Maintenance, 01/23/23 12:15:00 EST, Film, [facility]/pharmacy #2071, Partial fill upon patient request if the prescriptionis for a schedule II opioid drug., 1 film Sublingua... Start Date: 01/23/23 Stop Date: 02/02/23 Status: Ordered SUMAtriptan 25 mg oral tablet [...] 01/23/23 12:20:00 EST, Route to Pharmacy Electronically, [facility] Back Pain Scale: 22 on 05/21/14; initial [place]: 16 pm 05/21/14 Social History Social History Type Response Smoking Status Former smoker; Tobac co user in household: No entered on: 03/31/14 Sex Patient Care team information Care Team Personnel Name: Nahid Rivas MD Position: S Physician - Primary Care Member Role: PCP Address: Address: [address] [place] [address]- Care Team Related Persons Name: SADI GILBERT Address: [place] [address]
--- OUTSIDE RECORDS SUMMARY | 2024-01-01 12:13 | XMS_ITS | Continuity of Care Document ---
Author Organization [facility] Address [address] [place] [address]- Care Team Providers Care Civil Engineering Professor Name Role Phone Rob ACOSTA, Nahid Castanon Primary Care Physician [place] [facility] [place](s[place] 03/27/23 - 04/26/[address] [address]- Attending Physician: Admtr, Hardy8 Admitting Physician: Admtr, Ar8 Referring Physician: Admtr, [...] 02/19/23 14:33:00 EST, Route to Pharmacy Electronically, [facility], 183, cm, 01/23/23 10:48:00 EST, Height, 103.4, kg, 12/19/22 11:22:00 EST, Dry Weight Start Date: 02/19/23 Status: Ordered clotrimazole 1% topical cream 1 application, Topically, 2 times a day, # 60 Gm, 0 Refills, Maintenance, 05/18/20 8:31:00 EDT, Cream, [facility]/pharmacy #[id number], 1 application Topically 2 times a day, 183, cm, 12/02/19 9:13:00 EDT, Height Start Date: 05/18/20 Status: Ordered diclofenac 1% topical gel 1 application, Topically, 4 times a day, PRN for pain, # 100 Gm, 2 Refills, Maintenance, 02/17/22 18:10:00 EST, Gel, [facility]/pharmacy #2071, 183, cm, 02/01/21 10:10:00 EST, Height Start Date: 02/17/22 Stop Date: 05/18/22 Status: Ordered fluticasone 50 mcg/inh nasal spray See Instructions, USE 1 SPRAY IN EACH NOSTRIL TWICE A DAY, # 48 mL, 1 Refills, Maintenance, 01/24/23 8:14:00 EST, [facility], 90, USE 1 SPRAY IN EACH NOSTRIL [...] Maintenance,04/07/23 10:10:00 EST, Route to Pharmacy Electronically, [facility]/pharmacy #[id number], Partial fill upon patient request if the prescription is for a schedule II... Start Date: 04/07/23 Stop Date: 10/04/23 Status: Ordered ibuprofen 800 mg oral tablet 800 mg, 1, tablet, By Mouth, 3 times a day, PRN, # 270 tablet, Refills 1, Tot. Refills 1, Maintenance, Pain , Moderate, 12/19/22 11:49:00 EST, Route to Pharmacy Electronically, [facility]/pharmacy #[id number], Partial fill upon patient request if the prescription... Start Date: 12/19/22 Status: Ordered montelukast 10 mg oral tablet 10 mg, 1, tablet, By Mouth, Daily, # 30 tablet, Refills 3, Tot. Refills 3, Maintenance, 06/27/22 10:37:00 EDT, Route to Pharmacy Electronically, [facility]/pharmacy #[id number], Partial fill upon patient [...] tablet, 0 Refills, Maintenance, 02/19/23 14:33:00 EST, [facility], 183, cm, 01/23/23 10:48:00 EST, Height, 103.4, [...] 0 Refills, Maintenance, 04/24/23 17:54:00 EDT, Film, [facility]/pharmacy #2071, Partial fill upon patient request if the prescriptionis for a schedule II opioid drug., 1 film Sublingua... Start Date: 04/24/23 Stop Date: 05/01/23 Status: Ordered SUMAtriptan 25 mg oral tablet See Instructions, TAKE 1 TABLET BY MOUTH ONCE AT ONSET OF HEADACHE. MAY REPEAT IN 2 HOURS, # 12 tablet, 1 Refills, Maintenance, 02/17/22 18:10:00 EST, [facility]/pharmacy #2071, 183, cm, 02/01/21 10:10:00 EST, Height Start Date: 02/17/22 Status: Ordered traZODone 50 mg oral tablet 1, tablet, By Mouth, Daily at bedtime, # 30 tablet, Refills 0, Maintenance, 02/19/23 14:33:00 EST, Route to Pharmacy Electronically, [facility], 183, cm, 01/23/23 10:48:00 EST, Height, 103.4, kg, 12/19/22 11:22:00 EST, Dry Weight Start Date: 02/19/23 Status: Ordered Ventolin HFA 108 mcg/inh inhalation aerosol with adapter 1 puffs, Inhalation, 4 times a day, PRN NEEDED FOR WHEEZE, # 18 each, 1 Refills, Maintenance, 04/17/23 17:53:00 EDT, [facility], 183, cm, 01/23/23 10:48:00 EST, Height, 103.4, kg, 12/19/22 11:22:00 EST, Dry Weight Start Date: 04/17/23 Status: Ordered Wellbutrin XL 150 mg/24 hours oral tablet, extended release 1 tablet = 150 mg, By Mouth, Every 24 hours, # 30 tablet, 1 Refills, Maintenance, 12/05/22 12:03:00EDT, ER Tablet, [facility]/pharmacy #8691, Partial fill upon patient request if the [...] Back Pain Scale: 22 on 05/21/14; initial [place]: 16 pm 05/21/14 Social History Social History Type Response Smoking Status Former smoker; Tobac co user in household: No entered on: 03/31/14 Sex Patient Care team information Care Team Personnel Name: Rob ACOSTA, Nahid Castanon Position: [facility] Physician - Primary Care Member Role: PCP Address: Address: [address] [place] [address]- Care Team Related Persons Name: SADI GILBERT Address: [address] [address]
--- OUTSIDE RECORDS SUMMARY | 2024-01-01 12:13 | XMS_ITS | Continuity of Care Document ---
Author Organization [facility] Address [address] [place] [address]- Care Team Providers Care Clinical Nursing Assistant Name Role Phone Nahid Rivas MD Primary Care Physician [place] [facility] [place] - 02/19/[address] [address]- Allergies, Adverse Reactions, Alerts Substance Reaction Severity [...] Refills, Maintenance, 01/20/20 18:51:00 EST, ER Tablet, [facility]/pharmacy #1708, Partial fill upon patient request if the prescription is for a schedule II opioid drug.,... Start Date: 01/20/20 Status: Ordered Problem List Condition Effective Dates Status Health Status Inform ant Back pain(Confirmed) Active Somnolence(Confirmed) Active Limitation due to disability(Confirmed) 1 Active Obesity(Confirmed) Active Type 2 diabetes mellitus(Confirmed) Active Vitamin D deficiency(Confirmed) Active 1initial [place] Back Pain Scale: 22 on 05/21/14; initial [place]: 16 pm 05/21/14 Social History Social History Type Response Smoking Status Former smoker; Tobac co user in household: No entered on: 03/31/14 Sex
--- OUTSIDE RECORDS SUMMARY | 2024-01-01 12:13 | XMS_ITS | Continuity of Care Document ---
Author Organization [facility] Address [address] [place] [address]- Care Team Providers Care Director Shopper Marketing Name Role Phone Rob ACOSTA, Nahid Castanon Primary Care Physician [phone] [place] [facility] [place] - 09/06/[address] [address] Allergies, Adverse Reactions, Alerts Substance [...] 08/08/23 13:16:00 EDT, [facility]ically[id number], 183, cm, 01/23/23 10:48:00 EST, Height, 103.4, kg, 12/19/22 11:22:00 EST, Dry Weight Start Date: 08/08/23 Status: Ordered clotrimazole 1% topical cream 1 application, Topically, 2 times a day, # 60 Gm, 0 Refills, Maintenance, 06/29/23 16:50:00 EDT, Cream, [id number], 1 application Topically 2 times a day, 183, cm, 01/23/23 10:48:00 EST, Height, 103.4, kg, 12/19/22 11:22:00 EST, Dry Weight Start Date: 06/29/23 Status: Ordered diclofenac 1% topical gel 1 application, Topically, 4 times a day, PRN for pain, # 100 Gm, 2 Refills, Maintenance, 02/17/22 18:10:00 EST, Gel, [id number], 183, cm, 02/01/21 10:10:00 EST, Height Start Date: 02/17/22 Stop Date: 05/18/22 Status: Ordered fluticasone 50 mcg/inh nasal spray See Instructions, USE 1 SPRAY IN EACH NOSTRIL TWICE A DAY, # 48 mL, 1 Refills, Maintenance, 01/24/23 8:14:00 EST, [id number], 90, USE 1 SPRAY IN EACH NOSTRIL [...] 10:10:00 EDT, Route to Pharmacy Electronically, [facility]/pharmacy #[id number], Partial fill upon patient request if the prescription is for a schedule II... Start Date: 10/04/23 Stop Date: 04/01/24 Status: Ordered gabapentin 300 mg oral capsule 600 mg, 2, capsule, By Mouth, 3 times a day, for 30 days, # 180 capsule, Refills 5, Tot. Refills 5,Hard Stop 10/04/23 10:10:00 EDT, 04/07/23 10:10:00 EST, Route to Pharmacy Electronically, [facility]/pharmacy #[id number], Partial fill upon patient request if the... Start Date: 04/07/23 Stop Date: 10/04/23 Status: Ordered ibuprofen 800 mg oral tablet 1, tablet, By Mouth, 3 times a day, PRN, # 270 tablet, Refills 1, Maintenance, NEEDED FOR PAIN, 06/13/23 6:56:00 EDT, Route to Pharmacy Electronically, [id number], 183, cm, 01/23/23 10:48:00 EST, Height, 103.4, kg, 12/19/22 11:22:00 EST, Dry W... Start Date: 06/13/23 Status: Ordered montelukast 10 mg oral tablet 10 mg, 1, tablet, By Mouth, Daily, # 30 tablet, Refills 3, Tot. Refills 3, Maintenance, 06/27/22 10:37:00 EDT, Route to Pharmacy Electronically, [facility]/pharmacy #[id number], Partial fill upon patient [...] Refills, Maintenance, 02/19/23 14:33:00 EST, [id number], 183, cm, 01/23/23 10:48:00 EST, Height, 103.4, [...] 0 Refills, Maintenance, 08/21/23 12:56:00 EDT, Film, [facility]/pharmacy #[id number], Partial fill upon patient request if the prescriptionis for a schedule II opioid drug., 1 film Sublingua... Start Date: 08/21/23 Stop Date: 09/04/23 Status: Ordered SUMAtriptan 25 mg oral tablet See Instructions, TAKE 1 TABLET BY MOUTH ONCE AT ONSET OF HEADACHE. MAY REPEAT IN 2 HOURS, # 12 tablet, 1 Refills, Maintenance, 02/17/22 18:10:00 EST, [facility]/pharmacy #[id number], 183, cm, 02/01/21 10:10:00 EST, Height Start Date: 02/17/22 Status: Ordered traZODone 50 mg oral tablet 1, tablet, By Mouth, Daily at bedtime, # 30 tablet, Refills 5, Tot. Refills 5, Maintenance, 08/07/23 15:59:00 EDT, Route to Pharmacy Electronically, [facility]/pharmacy #207, 183, cm, 01/23/23 10:48:00 EST, Height, 103.4, kg, 12/19/22 11:22:00 EST, Dry Weight Start Date: 08/07/23 Status: Ordered Ventolin HFA 108 mcg/inh inhalation aerosol with adapter 1 puffs, Inhalation, 4 times a day, PRN NEEDED FOR WHEEZE, # 18 each, 1 Refills, Maintenance, 04/17/23 17:53:00 EDT, [id number], 183, cm, 01/23/23 10:48:00 EST, Height, 103.4, kg, 12/19/22 11:22:00 EST, Dry Weight Start Date: 04/17/23 Status: Ordered Wellbutrin XL 150 mg/24 hours oral tablet, extended release 1 tablet = 150 mg, By Mouth, Every 24 hours, # 30 tablet, 1 Refills, Maintenance, 12/05/22 12:03:00EDT, ER Tablet, [facility]/pharmacy #[id number], Partial fill upon patient [...] Pain Scale: 22 on 05/21/14; initial [place]: 16 pm 05/21/14 Social History Social History Type Response Smoking Status Former smoker; Tobac co user in household: No entered on: 03/31/14 Sex Patient Care team information Care Team Personnel Name: Nahid Rivas MD Position: S Physician - Primary Care Member Role: PCP Address: Address: [address] [place] [address]- Care Team Related Persons Name: SADI GILBERT Address: home [address] [place] [address]
--- OUTSIDE RECORDS SUMMARY | 2024-01-01 12:13 | XMS_ITS | Continuity of Care Document ---
Author Organization [facility] Address [address] [place] [address]- Care Team Providers Care Hand Stapler Name Role Phone Rob ACOSTA, Nahid Castanon Primary Care Physician [phone] Encounter [facility] [place] Date(s): 05/18/20 - 06/17/[address] [address]- Attending Physician: AdmLaura vega Admitting Physician: AdmtrLaura Referring Physician: Admtr, Ar8 Allergies, Adverse Reactions, [...] Refills, Maintenance, 03/09/20 9:43:00 EST, ER Tablet, [facility]/pharmacy #[id number], Partial fill upon patient request if the [...] Back Pain Scale: 22 on 05/21/14; initial [place]: 16 pm 4/15/15 Social History Social History Type Response Smoking Status Former smoker; Tobac co user in household: No entered on: 03/31/14 Sex
--- OUTSIDE RECORDS SUMMARY | 2024-01-01 12:13 | XMS_ITS | Continuity of Care Document ---
Author Organization [facility] Address [address] [place] [address]- Care Team Providers Care Senior Property Accountant Name Role Phone Nahid Rivas MD Primary Care Physician [phone] [place] [facility] [place] [id number] Date(s): 06/27/22 - 07/27/[address] [address]- Attending Physician: Admtr, Ar8 Admitting Physician: Admtr, [...] 0 Refills, Maintenance, 05/18/20 8:31:00 EDT, Cream, [facility]/pharmacy #207, 1 application Topically 2 times a day, 183, cm, 12/02/19 9:13:00 EDT, Height Start Date: 05/18/20 Status: Ordered diclofenac 1% topical gel 1 application, Topically, 4 times a day, PRN for pain, # 100 Gm, 2 Refills, Maintenance, 02/17/22 18:10:00 EST, Gel, [facility]/pharmacy #207, 183, cm, 02/01/21 10:10:00 EST, Height Start Date: 02/17/22 Stop Date: 05/18/22 Status: Ordered Flonase 50 mcg/inh nasal spray 1 sprays, Nares, Both, 2 times a day, # 16 Gm, 5 Refills, Maintenance, 02/17/22 18:10:00 EST, [place], [facility]/pharmacy #207, Partial fill upon patient request [...] 10/01/21 8:32:00 EDT, Route to Pharmacy Electronically, [facility]/pharmacy #[id number], Partial fill upon patient request if the prescription i... Start Date: 10/01/21 Status: Ordered montelukast 10 mg oral tablet 10 mg, 1, tablet, By Mouth, Daily, # 30 tablet, Refills 3, Tot. Refills 3, Maintenance, 06/27/22 10:37:00 EDT, Route to Pharmacy Electronically, [facility]/pharmacy #[id number], Partial fill upon patient [...] Back Pain Scale: 22 on 05/21/14; initial [place]: 16 pm 05/21/14 Social History Social History Type Response Smoking Status Former smoker; Tobac co user in household: No entered on: 03/31/14 Sex Patient Care team information Care Team Personnel Name: Nahid Rivas MD Position: S Physician - Primary Care Member Role: PCP Address: Address: [address] [place] [address]- Care Team Related Persons Name: SADI GILBERT Address: [place] [address]
--- OUTSIDE RECORDS SUMMARY | 2024-01-01 12:13 | XMS_ITS | Continuity of Care Document ---
Author Organization [facility] Address [address] [place] [address]- Care Team Providers Care Senior Financial Reporting Analyst Name Role Phone Nahid Rivas MD Primary Care Physician Encounter [facility] [place] Date(s): 11/12/21 - 12/12/[address] [address]- Allergies, Adverse Reactions, Alerts Substance Reaction Severity [...] Gm, 5 Refills, Maintenance, 07/13/20 8:57:00 EDT, [place],[facility]/pharmacy #[id number], Partial fill upon patient [...] 10/01/21 8:32:00 EDT, Route to Pharmacy Electronically, [facility]/pharmacy #[id number], Partial fill upon patient [...] Refills, Maintenance, 08/07/21 12:16:00 EDT, ER Tablet, [facility]/pharmacy #[id number], Partial fill upon patient request if the prescription is for a schedule II opioid drug.,... Start Date: 08/07/21 Status: Ordered Problem List Condition Confirmation Course [...] Back Pain Scale: 22 on 05/21/14; initial [place]: 16 pm 05/21/14 Social History Social History Type Response Smoking Status Former smoker; Tobac co user in household: No entered on: 03/31/14 Sex Patient Care team information Personnel Name: Rob ACOSTA, Nahid Castanon Address: Address: [address] [place] [address] [[email or web address]]
--- OUTSIDE RECORDS SUMMARY | 2024-01-01 12:13 | XMS_ITS | Continuity of Care Document ---
Author Organization [facility] Address [address] [place] [address]- Care Team Providers Care Inspector Casing Name Role Phone Nahid Rivas MD Primary Care Physician Encounter [facility] [place] [id number] Date(s): 07/21/20 - 08/20/[address] [address]- Attending Physician: Admsilvia, Laura Admitting Physician: Admtr, [...] Gm, 5 Refills, Maintenance, 07/13/20 8:57:00 EDT, [place],[facility]/pharmacy #[id number], Partial fill upon [...] 07/13/20 9:02:00 EDT, Route to Pharmacy Electronically, [facility]/pharmacy #[id number], Partial fill upon patient request if the prescription is for a schedule II opi... Start Date: 07/13/20 Status: Ordered ipratropium nasal 21 mcg/inh spray 2 sprays, Nares, Both, 3 times a day, # 30 mL, 1 Refills, Acute 09/12/20 12:00:00 EDT, 07/13/20 8:58:00 EDT, [place], [facility]/pharmacy #[id number], Partial fill [...] Refills, Maintenance, 07/13/20 8:47:00 EDT, ER Tablet, [facility]/pharmacy #[id number], Partial fill upon patient request if the [...] Back Pain Scale: 22 on 05/21/14; initial [place]: 16 pm 05/21/14 Social History Social History Type Response Smoking Status Former smoker; Tobac co user in household: No entered on: 03/31/14 Sex
--- OUTSIDE RECORDS SUMMARY | 2024-01-01 12:13 | XMS_ITS | Continuity of Care Document ---
Author Organization [facility] Address [address] [place] [address]- Care Team Providers Care Electrician Deck Name Role Phone Nahid Rivas MD Primary Care Physician [place] [facility] [place] Date(s): 01/12/21 - 02/11/[address] [address]- Allergies, Adverse Reactions, Alerts Substance Reaction Severity [...] Gm, 5 Refills, Maintenance, 07/13/20 8:57:00 EDT, [place],[facility]/pharmacy #[id number], Partial fill upon patient request if [...] 01/14/21 14:46:00 EST, Route to Pharmacy Electronically, [facility]/pharmacy #[id number], Partial fill upon patient request if [...] Refills, Soft Stop, 01/25/21 11:02:00 EST, Tablet, [facility]/pharmacy #[id number], Partial fill upon patient request if the prescription is for a schedule II opioid drug... Start Date: 01/25/21 Status: Ordered tramadol 200 mg oral tablet, extended release See Instructions, 1-2 tablet By Mouth Daily, use 2nd tablet sparingly, # 45 tablet, 5 Refills, Maintenance, 02/03/21 9:30:00 EST, ER Tablet, [facility]/pharmacy #[id number], Partial fill upon patient request if [...] mellitus(Confirmed) Active Vitamin D deficiency(Confirmed) Active 1initial [place] Back Pain Scale: 22 on 05/21/14; initial [place]: 16 pm 05/21/14 Social History Social History Type Response Smoking Status Former smoker; Tobac co user in household: No entered on: 03/31/14 Sex
--- OUTSIDE RECORDS SUMMARY | 2024-01-01 12:13 | XMS_ITS | Continuity of Care Document ---
Author Organization [facility] Address [address] [place] [address]- Care Team Providers Care Brand Marketing Manager Name Role Phone Nahid Rivas MD Primary Care Physician Encounter [facility] [place] Date(s): 06/05/23 - 08/23/[address] [id number] Attending Physician: Nahid Rivas MD Admitting [...] 08/08/23 13:16:00 EDT, [id number] 183, cm, 01/23/23 10:48:00 EST, Height, 103.4, kg, 12/19/22 11:22:00 EST, Dry Weight Start Date: 08/08/23 Status: Ordered clotrimazole 1% topical cream 1 application, Topically, 2 times a day, # 60 Gm, 0 Refills, Maintenance, 06/29/23 16:50:00 EDT, Cream, [id number], 1 application Topically 2 times a day, 183, cm, 01/23/23 10:48:00 EST, Height, 103.4, kg, 12/19/22 11:22:00 EST, Dry Weight Start Date: 06/29/23 Status: Ordered diclofenac 1% topical gel 1 application, Topically, 4 times a day, PRN for pain, # 100 Gm, 2 Refills, Maintenance, 02/17/22 18:10:00 EST, Gel, [facility] 183, cm, 02/01/21 10:10:00 EST, Height Start Date: 02/17/22 Stop Date: 05/18/22 Status: Ordered fluticasone 50 mcg/inh nasal spray See Instructions, USE 1 SPRAY IN EACH NOSTRIL TWICE A DAY, # 48 mL, 1 Refills, Maintenance, 01/24/23 8:14:00 EST, [id number], 90, USE 1 SPRAY IN EACH NOSTRIL [...] Maintenance,10/04/23 10:10:00 EDT, Route to Pharmacy Electronically, [facility]/pharmacy #[id number], Partial fill upon patient request if the prescription is for a schedule II... Start Date: 10/04/23 Stop Date: 04/01/24 Status: Ordered gabapentin 300 mg oral capsule 600 mg, 2, capsule, By Mouth, 3 times a day, for 30 days, # 180 capsule, Refills 5, Tot. Refills 5,Hard Stop 10/04/23 10:10:00 EDT, 04/07/23 10:10:00 EST, Route to Pharmacy Electronically, [facility]/pharmacy #[id number], Partial fill upon patient request if the... Start Date: 04/07/23 Stop Date: 10/04/23 Status: Ordered ibuprofen 800 mg oral tablet 1, tablet, By Mouth, 3 times a day, PRN, # 270 tablet, Refills 1, Maintenance, NEEDED FOR PAIN, 06/13/23 6:56:00 EDT, Route to Pharmacy Electronically, [facility], 183, cm, 01/23/23 10:48:00 EST, Height, 103.4, kg, 12/19/22 11:22:00 EST, Dry W... Start Date: 06/13/23 Status: Ordered montelukast 10 mg oral tablet 10 mg, 1, tablet, By Mouth, Daily, # 30 tablet, Refills 3, Tot. Refills 3, Maintenance, 06/27/22 10:37:00 EDT, Route to Pharmacy Electronically, [facility]/pharmacy #[id number], Partial fill upon patient request [...] Refills, Maintenance, 02/19/23 14:33:00 EST, [facility], 183, cm, 01/23/23 10:48:00 EST, Height, 103.4, [...] 0 Refills, Maintenance, 08/21/23 12:56:00 EDT, Film, [facility]/pharmacy #[id number], Partial fill upon patient request if the prescriptionis for a schedule II opioid drug., 1 film Sublingua... Start Date: 08/21/23 Stop Date: 09/04/23 Status: Ordered SUMAtriptan 25 mg oral tablet See Instructions, TAKE 1 TABLET BY MOUTH ONCE AT ONSET OF HEADACHE. MAY REPEAT IN 2 HOURS, # 12 tablet, 1 Refills, Maintenance, 02/17/22 18:10:00 EST, [facility]/pharmacy #[id number], 183, cm, 02/01/21 10:10:00 EST, Height Start Date: 02/17/22 Status: Ordered traZODone 50 mg oral tablet 1, tablet, By Mouth, Daily at bedtime, # 30 tablet, Refills 5, Tot. Refills 5, Maintenance, 08/07/23 15:59:00 EDT, Route to Pharmacy Electronically, [facility]/pharmacy #[id number], 183, cm, 01/23/23 10:48:00 EST, Height, 103.4, kg, 12/19/22 11:22:00 EST, Dry Weight Start Date: 08/07/23 Status: Ordered Ventolin HFA 108 mcg/inh inhalation aerosol with adapter 1 puffs, Inhalation, 4 times a day, PRN NEEDED FOR WHEEZE, # 18 each, 1 Refills, Maintenance, 04/17/23 17:53:00 EDT, [facility], 183, cm, 01/23/23 10:48:00 EST, Height, 103.4, kg, 12/19/22 11:22:00 EST, Dry Weight Start Date: 04/17/23 Status: Ordered Wellbutrin XL 150 mg/24 hours oral tablet, extended release 1 tablet = 150 mg, By Mouth, Every 24 hours, # 30 tablet, 1 Refills, Maintenance, 12/05/22 12:03:00EDT, ER Tablet, [facility]/pharmacy #[id number], Partial fill upon patient request [...] Back Pain Scale: 22 on 05/21/14; initial [place]: 16 pm 05/21/14 Social History Social History Type Response Smoking Status Former smoker; Tobac co user in household: No entered on: 03/31/14 Sex Patient Care team information Care Team Personnel Name: Nahid Rivas MD Position: S Physician - Primary Care Member Role: PCP Address: Address: [address] [place] [address]- Care Team Related Persons Name: SADI GILBERT Address: home [address] [place] [address]
--- OUTSIDE RECORDS SUMMARY | 2024-01-01 12:13 | XMS_ITS | Continuity of Care Document ---
Author Organization [facility] Address [address] [place] [address]- Care Team Providers Care Baseball Club Manager Name Role Phone Rob ACOSTA, Nahid Castanon Primary Care Physician [place] [facility] [place] Date(s): 07/10/20 - 08/15/[address] [id number] Attending Physician: Nahid Rivas MD Admitting Physician: [...] Gm, 5 Refills, Maintenance, 07/13/20 8:57:00 EDT, [place],[facility]/pharmacy #[id number], Partial fill upon [...] 07/13/20 9:02:00 EDT, Route to Pharmacy Electronically, [facility]/pharmacy #[id number], Partial fill upon patient request if the prescription is for a schedule II opi... Start Date: 07/13/20 Status: Ordered ipratropium nasal 21 mcg/inh spray 2 sprays, Nares, Both, 3 times a day, # 30 mL, 1 Refills, Acute 09/12/20 12:00:00 EDT, 07/13/20 8:58:00 EDT, [place], [facility]/pharmacy #[id number], Partial fill [...] Refills, Maintenance, 07/13/20 8:47:00 EDT, ER Tablet, [facility]/pharmacy #[id number], Partial fill upon patient request if the [...] Back Pain Scale: 22 on 05/21/14; initial [place]: 16 pm 05/21/14 Social History Social History Type Response Smoking Status Former smoker; Tobac co user in household: No entered on: 03/31/14 Sex
--- OUTSIDE RECORDS SUMMARY | 2024-01-01 12:13 | XMS_ITS | Continuity of Care Document ---
Author Organization [facility] Address [address] [place] [address]- Care Team Providers Care Mental Retardation Nurse Name Role Phone Nahid Rivas MD Primary Care Physician [place] [facility] [place] 09[place]08[place]22 - 10/14/22 [facility] [address] [place] [id number] Attending Physician: Nahid Rivas MD Admitting Physician: [...] Maintenance, 05/18/20 8:31:00 EDT, [place], [facility]/pharmacy #207, 1 application Topically 2 times a day, 183, cm, 12/02/19 9:13:00 EDT, Height Start Date: 05/18/20 Status: Ordered diclofenac 1% topical gel 1 application, Topically, 4 times a day, PRN for pain, # 100 Gm, 2 Refills, Maintenance, 02/17/22 18:10:00 EST, Gel, [facility]/pharmacy #207, 183, cm, 02/01/21 10:10:00 EST, Height Start Date: 02/17/22 Stop Date: 05/18/22 Status: Ordered Flonase 50 mcg/inh nasal spray 1 sprays, Nares, Both, 2 times a day, # 16 Gm, 5 Refills, Maintenance, 02/17/22 18:10:00 EST, [place], [facility]/pharmacy #207, Partial fill upon [...] 8:32:00 EDT, Route to Pharmacy Electronically, [facility]/pharmacy #[id number], Partial fill upon patient request if the prescription i... Start Date: 10/01/21 Status: Ordered montelukast 10 mg oral tablet 10 mg, 1, tablet, By Mouth, Daily, # 30 tablet, Refills 3, Tot. Refills 3, Maintenance, 06/27/22 10:37:00 EDT, Route to Pharmacy Electronically, [facility]/pharmacy #[id number], Partial fill upon [...] List Condition Confirmation Course Effective Dates Status [facility] St atus Informant Back pain Confirmed Active Carpal tunnel syndrome, bilateral Confirmed Active Somnolence Confirmed Active Limitation due to disability 1 Confirmed Active Migraine Confirmed Active Obese class I Confirmed Active Obesity Confirmed Active Type 2 diabetes mellitus Confirmed Active Vitamin D deficiency Confirmed Active 1initial [place] Back Pain Scale: 22 on 05/21/14; initial [place]: 16 pm 05/21/14 Social History Social History Type Response Smoking Status Former smoker; Tobac co user in household: No entered on: 03/31/14 Sex Patient Care team information Care Team Personnel Name: Rob ACOSTA, Nahid Castanon Position: S Physician - Primary Care Member Role: PCP Address: Address: [address] [place] [address]- Care Team Related Persons Name: SADI GILBERT Address: home [address] [place] [id number]
--- OUTSIDE RECORDS SUMMARY | 2024-01-01 12:13 | XMS_ITS | Continuity of Care Document ---
Author Organization [facility] Address [address] [place] [address]- Care Team Providers Care Size Mixer Name Role Phone Rob ACOSTA, Nahid Castanon Primary Care Physician [phone] Encounter [facility] Date(s): 08/07/23 - 09/06/[address] [id number] Allergies, Adverse Reactions, Alerts Substance [...] 13:16:00 EDT, [id number], cm, 01/23/23 10:48:00 EST, Height, 103.4, kg, 12/19/22 11:22:00 EST, Dry Weight Start Date: 08/08/23 Status: Ordered clotrimazole 1% topical cream 1 application, Topically, 2 times a day, # 60 Gm, 0 Refills, Maintenance, 06/29/23 16:50:00 EDT, [id number] 1 [facility] Topically 2 times a day, 183, cm, 01/23/23 10:48:00 EST, Height, 103.4, kg, 12/19/22 11:22:00 EST, Dry Weight Start Date: 06/29/23 Status: Ordered diclofenac 1% topical gel 1 application, Topically, 4 times a day, PRN for pain, # 100 Gm, 2 Refills, Maintenance, 02/17/22 18:10:00 EST, Gel[id number], cm, 02/01/21 10:10:00 EST, Height Start Date: 02/17/22 Stop Date: 05/18/22 Status: Ordered fluticasone 50 mcg/inh nasal spray See Instructions, USE 1 SPRAY IN EACH NOSTRIL TWICE A DAY, # 48 mL, 1 Refills, Maintenance, 01/24/23 8:14:00 EST, [id number], 90, USE 1 SPRAY IN EACH NOSTRIL [...] 10:10:00 EDT, Route to Pharmacy Electronically, [facility]/pharmacy #[id number], Partial fill upon patient request if the prescription is for a schedule II... Start Date: 10/04/23 Stop Date: 04/01/24 Status: Ordered gabapentin 300 mg oral capsule 600 mg, 2, capsule, By Mouth, 3 times a day, for 30 days, # 180 capsule, Refills 5, Tot. Refills 5,Hard Stop 10/04/23 10:10:00 EDT, 04/07/23 10:10:00 EST, Route to Pharmacy Electronically, [facility]/pharmacy #[id number], Partial fill upon patient request if the... Start Date: 04/07/23 Stop Date: 10/04/23 Status: Ordered ibuprofen 800 mg oral tablet 1, tablet, By Mouth, 3 times a day, PRN, # 270 tablet, Refills 1, Maintenance, NEEDED FOR PAIN, 06/13/23 6:56:00 EDT, Route to Pharmacy Electronically, [id number], 183, cm, 01/23/23 10:48:00 EST, Height, 103.4, kg, 12/19/22 11:22:00 EST, Dry W... Start Date: 06/13/23 Status: Ordered montelukast 10 mg oral tablet 10 mg, 1, tablet, By Mouth, Daily, # 30 tablet, Refills 3, Tot. Refills 3, Maintenance, 06/27/22 10:37:00 EDT, Route to Pharmacy Electronically, [facility]/pharmacy #[id number], Partial fill upon patient request [...] Refills, Maintenance, 02/19/23 14:33:00 EST, [facility], 183, cm, 01/23/23 10:48:00 EST, Height, 103.4, [...] 0 Refills, Maintenance, 08/21/23 12:56:00 EDT, Film, [facility]/pharmacy #[id number], Partial fill upon patient request if the prescriptionis for a schedule II opioid drug., 1 film Sublingua... Start Date: 08/21/23 Stop Date: 09/04/23 Status: Ordered SUMAtriptan 25 mg oral tablet See Instructions, TAKE 1 TABLET BY MOUTH ONCE AT ONSET OF HEADACHE. MAY REPEAT IN 2 HOURS, # 12 tablet, 1 Refills, Maintenance, 02/17/22 18:10:00 EST, [facility]/pharmacy #[id number], 183, cm, 02/01/21 10:10:00 EST, Height Start Date: 02/17/22 Status: Ordered traZODone 50 mg oral tablet 1, tablet, By Mouth, Daily at bedtime, # 30 tablet, Refills 5, Tot. Refills 5, Maintenance, 08/07/23 15:59:00 EDT, Route to Pharmacy Electronically, [facility]/pharmacy #207, 183, cm, 01/23/23 10:48:00 EST, Height, 103.4, kg, 12/19/22 11:22:00 EST, Dry Weight Start Date: 08/07/23 Status: Ordered Ventolin HFA 108 mcg/inh inhalation aerosol with adapter 1 puffs, Inhalation, 4 times a day, PRN NEEDED FOR WHEEZE, # 18 each, 1 Refills, Maintenance, 04/17/23 17:53:00 EDT, [facility], 183, cm, 01/23/23 10:48:00 EST, Height, 103.4, kg, 12/19/22 11:22:00 EST, Dry Weight Start Date: 04/17/23 Status: Ordered Wellbutrin XL 150 mg/24 hours oral tablet, extended release 1 tablet = 150 mg, By Mouth, Every 24 hours, # 30 tablet, 1 Refills, Maintenance, 12/05/22 12:03:00EDT, ER Tablet, [facility]/pharmacy #[id number], Partial fill upon patient request [...] Back Pain Scale: 22 on 05/21/14; initial [place]: 16 pm 05/21/14 Social History Social History Type Response Smoking Status Former smoker; Tobac co user in household: No entered on: 03/31/14 Sex Patient Care team information Care Team Personnel Name: Nahid Rivas MD Position: S Physician - Primary Care Member Role: PCP Address: Address: [address] [place] [address]- Care Team Related Persons Name: SADI GILBERT Address: home [address] [place] [id number]
--- OUTSIDE RECORDS SUMMARY | 2024-01-01 12:13 | XMS_ITS | Continuity of Care Document ---
Author Organization [facility] Address [address] [place] [address]- Care Team Providers Care Box Machine Operator Name Role Phone Nahid Rivas MD Primary Care Physician Encounter [facility] Date(s): 06/02/22 - 07/02/[address] [address]- Allergies, Adverse Reactions, Alerts Substance Reaction Severity [...] 0 Refills, Maintenance, 05/18/20 8:31:00 EDT, Cream, [facility]/pharmacy #[id number], 1 application Topically 2 times a day, 183, cm, 12/02/19 9:13:00 EDT, Height Start Date: 05/18/20 Status: Ordered diclofenac 1% topical gel 1 application, Topically, 4 times a day, PRN for pain, # 100 Gm, 2 Refills, Maintenance, 02/17/22 18:10:00 EST, Gel, [facility]/pharmacy #[id number], 183, cm, 02/01/21 10:10:00 EST, Height Start Date: 02/17/22 Stop Date: 05/18/22 Status: Ordered Flonase 50 mcg/inh nasal spray 1 sprays, Nares, Both, 2 times a day, # 16 Gm, 5 Refills, Maintenance, 02/17/22 18:10:00 EST, [place], [facility]/pharmacy #[id number], Partial fill upon patient [...] 8:32:00 EDT, Route to Pharmacy Electronically, [facility]/pharmacy #[id number], Partial fill upon patient request if the prescription i... Start Date: 10/01/21 Status: Ordered montelukast 10 mg oral tablet 10 mg, 1, tablet, By Mouth, Daily, # 30 tablet, Refills 3, Tot. Refills 3, Maintenance, 06/27/22 10:37:00 EDT, Route to Pharmacy Electronically, [facility]/pharmacy #[id number], Partial fill upon patient [...] 1 Refills, Maintenance, 02/17/22 18:10:00 EST, [facility]/pharmacy #[id number], 183, cm, 02/01/21 10:10:00 EST, Height Start Date: 02/17/22 Status: Ordered tramadol 200 mg oral tablet, extended release See Instructions, 1-2 tablet By Mouth Daily, use 2nd tablet sparingly, # 45 tablet, 5 Refills, Maintenance, 02/08/22 8:38:00 EST, ER Tablet, [facility]/pharmacy #[id number], Partial fill upon patient [...] Back Pain Scale: 22 on 05/21/14; initial [place]: 16 pm 05/21/14 Social History Social History Type Response Smoking Status Former smoker; Tobac co user in household: No entered on: 03/31/14 Sex Patient Care team information Care Team Personnel Name: Rob ACOSTA, Nahid Castanon Position: [facility] Physician - Primary Care Member Role: PCP Address: Address: [address] [place], [place] [id number]- Care Team Related Persons Name: GILBERT SADI Address: [address] [address]
--- OUTSIDE RECORDS SUMMARY | 2024-01-01 12:13 | XMS_ITS | Continuity of Care Document ---
Author Organization [facility] Address [address] [place] [address]- Care Team Providers Care Payroll Professional Name Role Phone Nahid Rivas MD Primary Care Physician [phone] Encounter [id number] Date(s): 03/09/20 - 04/08/[address] [address]- Attending Physician: Admsilvia, Laura Admitting Physician: Admtr, [...] Refills, Maintenance, 03/09/20 8:24:00 EST, Cream, [facility], 1 application Topically 2 [...] Refills, Maintenance, 03/09/20 9:43:00 EST, ER Tablet, [facility]/pharmacy #[id number], Partial fill upon patient request if the prescription is for a schedule II opioid drug., 1... Start Date: 03/09/20 Status: Ordered Problem List Condition Effective Dates Status Health Status Inform ant Back pain(Confirmed) Active Somnolence(Confirmed) Active Limitation due to disability(Confirmed) 1 Active Obesity(Confirmed) Active Type 2 diabetes mellitus(Confirmed) Active Vitamin D deficiency(Confirmed) Active 1initial [place] Back Pain Scale: 22 on 05/21/14; initial [place]: 16 pm 05/21/14 Social History Social History Type Response Smoking Status Former smoker; Tobac co user in household: No entered on: 03/31/14 Sex
--- OUTSIDE RECORDS SUMMARY | 2024-01-01 12:13 | XMS_ITS | Continuity of Care Document ---
Author Organization [facility] Address [address] [place] [address]- Care Team Providers Care Assembler Product Name Role Phone Nahid Rivas MD Primary Care Physician [place] [facility] Date(s): 06/10/22 - 07/10/[address] [address]- Allergies, Adverse Reactions, Alerts Substance Reaction Severity [...] 0 Refills, Maintenance, 05/18/20 8:31:00 EDT, Cream, [facility]/pharmacy #[id number], 1 application Topically 2 times a day, 183, cm, 12/02/19 9:13:00 EDT, Height Start Date: 05/18/20 Status: Ordered diclofenac 1% topical gel 1 application, Topically, 4 times a day, PRN for pain, # 100 Gm, 2 Refills, Maintenance, 02/17/22 18:10:00 EST, Gel, [facility]/pharmacy #[id number], 183, cm, 02/01/21 10:10:00 EST, Height Start Date: 02/17/22 Stop Date: 05/18/22 Status: Ordered Flonase 50 mcg/inh nasal spray 1 sprays, Nares, Both, 2 times a day, # 16 Gm, 5 Refills, Maintenance, 02/17/22 18:10:00 EST, [place], [facility]/pharmacy #[id number], Partial fill upon patient [...] 10/01/21 8:32:00 EDT, Route to Pharmacy Electronically, [facility]/pharmacy #[id number], Partial fill upon patient request if the prescription i... Start Date: 10/01/21 Status: Ordered montelukast 10 mg oral tablet 10 mg, 1, tablet, By Mouth, Daily, # 30 tablet, Refills 3, Tot. Refills 3, Maintenance, 06/27/22 10:37:00 EDT, Route to Pharmacy Electronically, [facility]/pharmacy #[id number], Partial fill upon patient [...] 1 Refills, Maintenance, 02/17/22 18:10:00 EST, [facility]/pharmacy #[id number], 183, cm, 02/01/21 10:10:00 EST, Height Start Date: 02/17/22 Status: Ordered tramadol 200 mg oral tablet, extended release See Instructions, 1-2 tablet By Mouth Daily, use 2nd tablet sparingly, # 45 tablet, 5 Refills, Maintenance, 02/08/22 8:38:00 EST, ER Tablet, [facility]/pharmacy #[id number], Partial fill upon patient [...] Back Pain Scale: 22 on 05/21/14; initial [place]: 16 pm 05/21/14 Social History Social History Type Response Smoking Status Former smoker; Tobac co user in household: No entered on: 03/31/14 Sex Patient Care team information Care Team Personnel Name: Rob ACOSTA, Nahid Castanon Position: [facility] Physician - Primary Care Member Role: PCP Address: Address: [address] [place], [place] [id number]- Care Team Related Persons Name: GILBERT SADI Address: [address] [address]
--- OUTSIDE RECORDS SUMMARY | 2024-01-01 12:13 | XMS_ITS | Continuity of Care Document ---
Author Organization [facility] Address [address] [place] [address]- Care Team Providers Care Welding Machine Operator [employer] Name Role Phone Rob ACOSTA, Nahid Castanon Primary Care Physician [phone] [facility] Date(s): 09/26/23 - 10/26/[address] [address] Allergies, Adverse Reactions, Alerts Substance Reaction [...] 08/08/23 13:16:00 EDT, Route to Pharmacy Electronically, [facility]/pharmacy #[id number], 183, cm, 01/23/23 10:48:00 EST, Height, 103.4, kg, 12/19/22 11:22:00 EST, Dry Weight Start Date: 08/08/23 Status: Ordered clotrimazole 1% topical cream See Instructions, APPLY TO AFFECTED AREA TWICE A DAY, # 60 Gm, 0 Refills, Maintenance, 09/22/23 22:38:00 EDT, [facility], 30, APPLY TO AFFECTED AREA TWICE A DAY, 183, cm, 01/23/23 10:48:00 EST, Height, 103.4, kg, 12/19/22 11:22:00 EST, Dry Weight Start Date: 09/22/23 Status: Ordered diclofenac 1% topical gel 1 application, Topically, 4 times a day, PRN for pain, # 100 Gm, 2 Refills, Maintenance, 02/17/22 18:10:00 EST, Gel, [facility]/pharmacy #[id number], 183, cm, 02/01/21 10:10:00 EST, Height Start Date: 02/17/22 Stop Date: 05/18/22 Status: Ordered fluticasone 50 mcg/inh nasal spray See Instructions, USE 1 SPRAY IN EACH NOSTRIL TWICE A DAY, # 48 mL, 1 Refills, Maintenance, 01/24/23 8:14:00 EST, [facility], 90, USE 1 SPRAY IN EACH NOSTRIL [...] check fasting sugars daily, 04/17/23 17:56:00 EDT, [facility], 183, cm, 01/23/23 10:48:00 EST, Height, 103.4, kg, 12/19/22 11:22:00 EST, Dry Weight Start Date: 04/17/23 Stop Date: 10/14/23 Status: Ordered gabapentin 300 mg oral capsule 600 mg, 2, capsule, By Mouth, 3 times a day, # 180 capsule, Refills 5, Tot. Refills 5, Maintenance,10/04/23 10:10:00 EDT, Route to Pharmacy Electronically, [facility]/pharmacy #[id number], Partial fill upon patient request if the prescription is for a schedule II... Start Date: 10/04/23 Stop Date: 04/01/24 Status: Ordered ibuprofen 800 mg oral tablet 1, tablet, By Mouth, 3 times a day, PRN, # 270 tablet, Refills 1, Maintenance, NEEDED FOR PAIN, 06/13/23 6:56:00 EDT, Route to Pharmacy Electronically, [facility], 183, cm, 01/23/23 10:48:00 EST, Height, 103.4, kg, 12/19/22 11:22:00 EST, Dry W... Start Date: 06/13/23 Status: Ordered montelukast 10 mg oral tablet 10 mg, 1, tablet, By Mouth, Daily, # 30 tablet, Refills 3, Tot. Refills 3, Maintenance, 06/27/22 10:37:00 EDT, Route to Pharmacy Electronically, [facility] Refills, Maintenance, 02/19/23 14:33:00 EST, [facility], 183, cm, 01/23/23 10:48:00 EST, Height, 103.4, [...] tablet, 1 Refills, Maintenance, 02/17/22 18:10:00 EST, [facility]/pharmacy #2071, 183, cm, 02/01/21 10:10:00 EST, Height Start Date: 02/17/22 Status: Ordered traZODone 50 mg oral tablet 1, tablet, By Mouth, Daily at bedtime, # 30 tablet, Refills 5, Tot. Refills 5, Maintenance, 08/07/23 15:59:00 EDT, Route to Pharmacy Electronically, [facility]/pharmacy #2071, 183, cm, 01/23/23 10:48:00 EST, Height, 103.4, kg, 12/19/22 11:22:00 EST, Dry Weight Start Date: 08/07/23 Status: Ordered Ventolin HFA 108 mcg/inh inhalation aerosol with adapter 1 puffs, Inhalation, 4 times a day, PRN NEEDED FOR WHEEZE, # 18 each, 1 Refills, Maintenance, 04/17/23 17:53:00 EDT, [facility], 183, cm, 01/23/23 10:48:00 EST, Height, 103.4, kg, 12/19/22 11:22:00 EST, Dry Weight Start Date: 04/17/23 Status: Ordered Wellbutrin XL 150 mg/24 hours oral tablet, extended release 1 tablet = 150 mg, By Mouth, Every 24 hours, # 30 tablet, 1 Refills, Maintenance, 12/05/22 12:03:00EDT, [facility] Tablet, [id number], Partial fill upon patient request if the [...] Back Pain Scale: 22 on 05/21/14; initial [place]: 16 pm 05/21/14 Social History Social History Type Response Smoking Status Former smoker; Tobac co user in household: No entered on: 03/31/14 Sex Patient Care team information Care Team Personnel Name: Rob ACOSTA, Nahid Castanon Position: [facility] Physician - Primary Care Member Role: PCP Address: Address: [address] [place] [id number]- Care Team Related Persons Name: SADI GILBERT Address: [address] [address]
--- OUTSIDE RECORDS SUMMARY | 2024-01-01 12:13 | XMS_ITS | Continuity of Care Document ---
Author Organization [facility] Address [address] [place] [address]- Care Team Providers Care Supervisor Mold Shop Name Role Phone Nahid Rivas MD Primary Care Physician [place] [facility] [place] 11/17/23 - 12/17/[address] [address]- Allergies, Adverse Reactions, Alerts Substance Reaction Severity [...] 11/18/23 10:19:00 EDT, Route to Pharmacy Electronically, [facility]/pharmacy #[id number], 183, cm, 01/23/23 10:48:00 EST, Height, 103.4, kg, 12/19/22 11:22:00 EST, Dry Weight Start Date: 11/18/23 Status: Ordered clotrimazole 1% topical cream See Instructions, APPLY TO AFFECTED AREA TWICE A DAY, # 60 Gm, 0 Refills, Maintenance, 09/22/23 22:38:00 EDT, [facility] 09[facility], 30, APPLY TO AFFECTED AREA TWICE A DAY, 183, cm, 01/23/23 10:48:00 EST, Height, 103.4, kg, 12/19/22 11:22:00 EST, Dry Weight Start Date: 09/22/23 Status: Ordered diclofenac 1% topical gel 1 application, Topically, 4 times a day, PRN for pain, # 100 Gm, 2 Refills, Maintenance, 02/17/22 18:10:00 EST, [facility], cm, 02/01/21 10:10:00 EST, Height Start Date: 02/17/22 Stop Date: 05/18/22 Status: Ordered fluticasone 50 mcg/inh nasal spray See Instructions, USE 1 SPRAY IN EACH NOSTRIL TWICE A DAY, # 48 mL, 1 Refills, Maintenance, 01/24/23 8:14:00 EST, [facility], 90, USE 1 SPRAY IN EACH NOSTRIL [...] 10/04/23 10:10:00 EDT, Route to Pharmacy Electronically, [facility]/pharmacy #2071, Partial fill upon patient request if the... Start Date: 10/04/23 Stop Date: 04/01/24 Status: Ordered gabapentin 300 mg oral capsule 600 mg, 2, capsule, By Mouth, 3 times a day, # 180 capsule, Refills 0, Tot. Refills 0, Maintenance,04/01/24 10:10:00 EST, Route to Pharmacy Electronically, [facility]/pharmacy #2071, Partial fill upon patient request if the prescription is for a schedule II... Start Date: 04/01/24 Status: Ordered ibuprofen 800 mg oral tablet 1, tablet, By Mouth, 3 times a day, PRN, # 90 tablet, Refills 0, Tot. Refills 0, Maintenance, NEEDED FOR PAIN, 11/18/23 10:19:00 EDT, Route to Pharmacy Electronically, [facility]/pharmacy #2071, 183, cm,01/23/23 10:48:00 EST, [...] Refills, Maintenance, 02/19/23 14:33:00 EST, [facility] 62440, 183, cm, 01/23/23 10:48:00 EST, Height, 103.4, [...] Refills, Maintenance, 02/17/22 18:10:00 EST, [facility]/pharmacy #2071, 183, cm, 02/01/21 10:10:00 EST, Height Start Date: 02/17/22 Status: Ordered traZODone 50 mg oral tablet 1, tablet, By Mouth, Daily at bedtime, # 30 tablet, Refills 0, Tot. Refills 0, Maintenance, 11/18/23 10:19:00 EDT, Route to Pharmacy Electronically, [facility]/pharmacy #2071, 183, cm, 01/23/23 10:48:00 EST, Height, 103.4, kg, 12/19/22 11:22:00 EST, Dry Weight Start Date: 11/18/23 Status: Ordered Ventolin HFA 108 mcg/inh inhalation aerosol with adapter 1 puffs, Inhalation, 4 times a day, PRN NEEDED FOR WHEEZE, # 18 each, 1 Refills, Maintenance, 04/17/23 17:53:00 EDT, [facility], 183, cm, 01/23/23 10:48:00 EST, Height, 103.4, kg, 12/19/22 11:22:00 EST, Dry Weight Start Date: 04/17/23 Status: Ordered Wellbutrin XL 150 mg/24 hours oral tablet, extended release 1 tablet = 150 mg, By Mouth, Every 24 hours, # 30 tablet, 1 Refills, Maintenance, 12/05/22 12:03:00EDT, ER Tablet, [facility]/pharmacy #1721, Partial fill upon patient request if the [...] Back Pain Scale: 22 on 05/21/14; initial [place]: 16 pm 05/21/14 Social History Social History Type Response Smoking Status Former smoker; Tobac co user in household: No entered on: 03/31/14 Sex Patient Care team information Care Team Personnel Name: Rob ACOSTA, Nahid Castanon Position: [facility] Physician - Primary Care Member Role: PCP Address: Address: [address] [place] [address]- Care Team Related Persons Name: SADI GILBERT Address: home [address] [place] [address]
--- OUTSIDE RECORDS SUMMARY | 2024-01-01 12:13 | XMS_ITS | Continuity of Care Document ---
Author Organization [facility] Address [address] [place] [address]- Care Team Providers Care Site Interpreter Name Role Phone Nahid Rivas MD Primary Care Physician Encounter [facility] [place] Date(s): 06/09/22 - 07/09/[address] [address]- Allergies, Adverse Reactions, Alerts Substance Reaction Severity [...] 0 Refills, Maintenance, 05/18/20 8:31:00 EDT, Cream, [facility]/pharmacy #[id number], 1 application Topically 2 times a day, 183, cm, 12/02/19 9:13:00 EDT, Height Start Date: 05/18/20 Status: Ordered diclofenac 1% topical gel 1 application, Topically, 4 times a day, PRN for pain, # 100 Gm, 2 Refills, Maintenance, 02/17/22 18:10:00 EST, Gel, [facility]/pharmacy #[id number], 183, cm, 02/01/21 10:10:00 EST, Height Start Date: 02/17/22 Stop Date: 05/18/22 Status: Ordered Flonase 50 mcg/inh nasal spray 1 sprays, Nares, Both, 2 times a day, # 16 Gm, 5 Refills, Maintenance, 02/17/22 18:10:00 EST, [place], [facility]/pharmacy #2071, Partial fill upon patient [...] 10/01/21 8:32:00 EDT, Route to Pharmacy Electronically, [facility]/pharmacy #2071, Partial fill upon patient request if the prescription i... Start Date: 10/01/21 Status: Ordered montelukast 10 mg oral tablet 10 mg, 1, tablet, By Mouth, Daily, # 30 tablet, Refills 3, Tot. Refills 3, Maintenance, 06/27/22 10:37:00 EDT, Route to Pharmacy Electronically, [facility]/pharmacy #2071, Partial fill upon patient [...] tablet, 1 Refills, Maintenance, 02/17/22 18:10:00 EST, [facility]/pharmacy #2071, 183, cm, 02/01/21 10:10:00 EST, Height Start Date: 02/17/22 Status: Ordered tramadol 200 mg oral tablet, extended release See Instructions, 1-2 tablet By Mouth Daily, use 2nd tablet sparingly, # 45 tablet, 5 Refills, Maintenance, 02/08/22 8:38:00 EST, ER Tablet, [facility]/pharmacy #[id number], Partial fill upon patient [...] Back Pain Scale: 22 on 05/21/14; initial [place]: 16 pm 05/21/14 Social History Social History Type Response Smoking Status Former smoker; Tobac co user in household: No entered on: 03/31/14 Sex Patient Care team information Care Team Personnel Name: Rob ACOSTA, Nahid Castanon Position: [facility] Physician - Primary Care Member Role: PCP Address: Address: [address] [place], [place] [phone]- Care Team Related Persons Name: GILBERT SADI Address: [address] [address]
--- OUTSIDE RECORDS SUMMARY | 2024-01-01 12:13 | XMS_ITS | Continuity of Care Document ---
Author Organization [facility] Address [address] [place] [address]- Care Team Providers Care Welding Machine Operator Thermit Name Role Phone Rob ACOSTA, Nahid Castanon Primary Care Physician Encounter [facility] [place] Date(s): 07/24/23 - 08/23/[address] [address]- Attending Physician: Admtr, [id number] Admitting Physician: Admtr, [...] 08/08/23 13:16:00 EDT, [id number], cm, 01/23/23 10:48:00 EST, Height, 103.4, kg, 12/19/22 11:22:00 EST, Dry Weight Start Date: 08/08/23 Status: Ordered clotrimazole 1% topical cream 1 application, Topically, 2 times a day, # 60 Gm, 0 Refills, Maintenance, 06/29/23 16:50:00 EDT, [id number] 1 application Topically 2 times a day, 183, cm, 01/23/23 10:48:00 EST, Height, 103.4, kg, 12/19/22 11:22:00 EST, Dry Weight Start Date: 06/29/23 Status: Ordered diclofenac 1% topical gel 1 application, Topically, 4 times a day, PRN for pain, # 100 Gm, 2 Refills, Maintenance, 02/17/22 18:10:00 EST, Gel[id number] 183, cm, 02/01/21 10:10:00 EST, Height Start Date: 02/17/22 Stop Date: 05/18/22 Status: Ordered fluticasone 50 mcg/inh nasal spray See Instructions, USE 1 SPRAY IN EACH NOSTRIL TWICE A DAY, # 48 mL, 1 Refills, Maintenance, 01/24/23 8:14:00 EST, [id number], 90, USE 1 SPRAY IN EACH NOSTRIL [...] Maintenance,10/04/23 10:10:00 EDT, [facility] 04/07/23 10:10:00 EST, Route to Pharmacy Electronically, [id number], Partial fill upon patient request if the... Start Date: 04/07/23 Stop Date: 10/04/23 Status: Ordered ibuprofen 800 mg oral tablet 1, tablet, By Mouth, 3 times a day, PRN, # 270 tablet, Refills 1, Maintenance, NEEDED FOR PAIN, 06/13/23 6:56:00 EDT, Route to Pharmacy Electronically, [id number], 183, cm, 01/23/23 10:48:00 EST, Height, 103.4, kg, 12/19/22 11:22:00 EST, Dry W... Start Date: 06/13/23 Status: Ordered montelukast 10 mg oral tablet 10 mg, 1, tablet, By Mouth, Daily, # 30 tablet, Refills 3, Tot. Refills 3, Maintenance, 06/27/22 10:37:00 EDT, [facility] Refills, Maintenance, 02/19/23 14:33:00 EST, [id number], 183, cm, 01/23/23 10:48:00 EST, Height, 103.4, [...] 0 Refills, Maintenance, 08/21/23 12:56:00 EDT, Film, [facility] #[id number], Partial [...] 08/07/23 15:59:00 EDT, Route to Pharmacy Electronically, [facility][id number], 183, cm, 01/23/23 10:48:00 EST, Height, 103.4, kg, 12/19/22 11:22:00 EST, Dry Weight Start Date: 08/07/23 Status: Ordered Ventolin HFA 108 mcg/inh inhalation aerosol with adapter 1 puffs, Inhalation, 4 times a day, PRN NEEDED FOR WHEEZE, # 18 each, 1 Refills, Maintenance, 04/17/23 17:53:00 EDT, [id number], 183, cm, 01/23/23 10:48:00 EST, Height, 103.4, kg, 12/19/22 11:22:00 EST, Dry Weight Start Date: 04/17/23 Status: Ordered Wellbutrin XL 150 mg/24 hours oral tablet, extended release 1 tablet = 150 mg, By Mouth, Every 24 hours, # 30 tablet, 1 Refills, Maintenance, 12/05/22 12:03:00EDT, ER Tablet, [facility]/pharmacy [...] Back Pain Scale: 22 on 05/21/14; initial [place]: 16 pm 05/21/14 Social History Social History Type Response Smoking Status Former smoker; [employer] user in household: No entered on: 03/31/14 Sex Patient Care team information Care Team Personnel Name: Nahid Rivas MD Position: [facility] Physician - Primary Care Member Role: PCP Address: Address: [address] [place] [id number]- Care Team Related Persons Name: SADI GILBERT Address: home [address] [place] [address]
== END 2024-01-01 12:10 | disposition home or self-care (01) ==
LOC: HO.HOS 12:08
PROVIDERS: PCP Internal Medicine; Visit Provider Physician Assistant
DX: S93.402A Sprain of unspecified ligament of left ankle, initial encounter (principal); M19.072 Primary osteoarthritis, left ankle and foot; Z04.3 Encounter for examination and observation following other accident
CPT/HCPCS: 99441

== ENCOUNTER → 2024-01-01 12:08 | Outpatient (BNVA) | payer OTHER, SELFPAY | PROVIDERS: PCP Internal Medicine; Visit Provider Physician Assistant | DX: M19.072 Primary osteoarthritis, left ankle and foot (principal); S93.402A Sprain of unspecified ligament of left ankle, initial encounter ==

== ENCOUNTER 2024-08-19 08:14 | Emergency (ER) | payer OTHER, SELFPAY ==
--- NOTE | ~2024-08-19 | CT_ITS ---
EXAMINATION: CT HEAD WITHOUT CONTRAST CLINICAL INFORMATION: Fall down stairs COMPARISON: 01/10/2021. TECHNIQUE: Contiguous axial imaging was performed from the skull base to vertex without intravenous administration of contrast. This CT examination was performed using dose optimization techniques as appropriate, variously including the following: *Automated exposure control *Adjustment of mA and/or kV according to patient size (this includes techniques or standardized protocols for targeted exams where dose is matched to indication/reason for exam; i.e. extremities or head) *Use of iterative reconstruction technique FINDINGS: There is no evidence of intracranial hemorrhage or extra-axial fluid collection. There is no mass effect, or edema. No CT evidence of acute territorial infarct. Ventricles, sulci, and cisterns are normal in size and configuration for patient age. No hydrocephalus. No midline shift. Negative hyperdense MCA sign. Negative insular ribbon sign. No significant white matter abnormalities. Normal pituitary. Globes and orbital contents image normally. No extracranial soft tissue abnormalities. Mild to moderate scattered mucosal thickening seen throughout the ethmoid and partially imaged maxillary sinuses. The remainder of the paranasal sinuses, mastoid air cells, and tympanic cavities are normally aerated. No suspicious bony abnormalities. There are no acute fractures evident. CT/CT head/brain wo IV con IMPRESSION: No acute intracranial abnormality. No fracture evident. Electronically signed by: Silvio Maroin MD 08/19/2024 10:35 AM EDT
--- NOTE | ~2024-08-19 | CT_ITS ---
EXAMINATION: CT CERVICAL SPINE WITHOUT CONTRAST CLINICAL INFORMATION: Fall, neck pain COMPARISON: None available. TECHNIQUE: Spiral CT imaging of the cervical spine performed in axial plane without contrast. Multiplanar reformatted images were constructed from the axial data set. This CT examination was performed using dose optimization techniques as appropriate, variously including the following: *Automated exposure control *Adjustment of mA and/or kV according to patient size (this includes techniques or standardized protocols for targeted exams where dose is matched to indication/reason for exam; i.e. extremities or head) *Use of iterative reconstruction technique FINDINGS: CORONAL ALIGNMENT: -Normal. SAGITTAL ALIGNMENT: -Minimal reversal of the normal lordosis. -No subluxations. C1-C2 AND CRANIOCERVICAL JUNCTION: -Intact and normally aligned. VERTEBRAL BODIES AND FACETS: -No fractures, compression deformities, or suspicious bone lesion. -No evidence of traumatic subluxation. -Normal facet alignment bilaterally. DISCS: -Grossly preserved with only minimal narrowing present. CENTRAL CANAL: -No evidence of high-grade central canal narrowing or large disc herniation allowing for modality limitations. PREVERTEBRAL AND PARAVERTEBRAL SOFT TISSUES: -There is no prevertebral or paravertebral soft tissue swelling or edema present. -Normal thyroid. -No masses or abnormal lymph nodes within the neck. LUNG APICES: -Clear bilaterally. CT/CT cervical spine wo IV con IMPRESSION: 1. No CT evidence of acute cervical spine fracture or injury. Electronically signed by: Silvio Marion MD 08/19/2024 11:19 AM EDT
--- NOTE | ~2024-08-19 | XR_ITS ---
EXAMINATION: XR LUMBOSACRAL SPINE CLINICAL INFORMATION: fall, pain COMPARISON: May 11, 2020. TECHNIQUE: AP and lateral views FINDINGS: Multilevel small marginal osteophyte formation and endplate sclerosis pronounced at T11 T12 L4 and L5. No acute cortical disruption or gross malalignment. Spina bifida occulta S1. Spondylolysis pars interarticularis at L5-S1 cannot be entirely excluded. XR/XR lumbar spine 2-3V IMPRESSION: Multilevel thoracolumbar spondylosis without acute fracture or trauma-related listhesis. Electronically signed by: Saeed Patrick MD 08/19/2024 09:06 AM EDT
[2024-08-19 08:16] VITALS: BP 145/80; PULSE 60; RESP 16; TEMP 36.4; O2SAT 97; BMI 31.2
--- NOTE | 2024-08-19 10:24 | ED_ITS ---
HPI - Fall General Chief Complaint: Fall Stated Complaint: fell down stairs back shoulder pain inj Time Seen by Provider: 08/19/24 09:23 Source: patient Mode of arrival: ambulatory Limitations: no limitations History of Present Illness ED Provider: JANAY MAHER PA-C HPI Narrative: 43 year old male with pmhx significant for arthritis presents to the ED today for evaluation s/p mechanical fall 4 days ago. Reports working on his balcony when he tripped on a board trying to get to his dog. Reports falling onto his bottom and sliding down 5-6 steps. Reports lower back pain. Admits to hitting his right upper back and neck. Denies head strike. No LOC. Not on anticoagulation. He was able to stand and ambulate afterwards. He reports presenting to the ED yesterday however left d/t long wait times. Reports driving himself to the ED today. He did not trial any OTC pain meds. He trialed heat/ice with temporary improvement. Denies numbness/tingling/weakness, bowel/bladder incontinence or retention, saddle anesthesia. No IVDU. No hx spinal surgeries. Related Data Previous Rx's ?Medication ?Instructions ?Recorded cyclobenzaprine 5 mg tablet 5 mg PO Q8H PRN muscle spa sm 3 08/19/24 days #9 tabs naproxen 500 mg tablet 500 mg PO Q12H PRN pain (sca le 08/19/24 score 1-3) #20 tabs Allergies Allergy/AdvReac Type Severity Reaction Status Date / Time acetaminophen (From TYLENOL) Allergy Unknown STOMACH Verified 08/19/24 08:22 ISSUES ibuprofen (From MOTRIN) Allergy Unknown STOMACH Verified 08/19/24 08:22 ISSUES Review of Systems Review of Systems: Constitutional: No fever, chills, fatigue, night sweats, weight changes ENT/Mouth: No ear pain, hearing loss, nasal congestion, sinus pain, rhinorrhea, sore throat Eyes: No eye pain, swelling, redness, vision changes, discharge Cardio: No chest pain, palpitations, MENJIVAR, orthopnea, peripheral edema Pulm: No SOB, cough, sputum, wheezing, dyspnea, hemoptysis GI: No nausea, vomiting, hematemesis, abdominal pain, diarrhea, constipation, hematochezia, melena : No irregular bleeding, dysuria, frequency, urgency, hesitancy, hematuria, flank pain, urinary flow changes, urinary incontinence or retention MSK: No joint pain, myalgias, +back pain, +neck/shoulder pain Skin: No lesions, rashes Neuro: No weakness, numbness, paresthesias, LOC, dizziness, headache Psych: No anxiety/panic, depression, SI/HI, AH/VH All other systems reviewed and are negative. FORMERLY [facility], 1928–[facility] Past Medical History Attestation statement: The following information was validated with the patient. Source: old records reviewed and nursing notes reviewed Social History Social History Unable to assess alcohol history related to: Unknown Alcohol intake: never Patient Tobacco Use Status: Never used Tobacco Use of substances other than those prescribed or required for medical reasons: Unknown Substance Use Type: Marijuana Advance Directives: No Advance Directives Information Provided: No Do you have a plan to hurt others: No Plan Current occupational status: employed Current occupation: [employer] Physical Exam Vital Signs: Vital Signs: Last Vital Signs Temp 98.3 F 08/19/24 11:56 Pulse 65 08/19/24 11:56 Resp 18 08/19/24 11:56 BP 138/75 08/19/24 11:56 Pulse Ox 95 08/19/24 11:56 O2 Del Method Room Air 08/19/24 11:56 BMI result Body Mass Index 31.2 Hypertensive, afebrile General: Well appearing, in no acute distress. Skin: Warm, dry, intact. No rashes or lesions. Head: Normocephalic, atraumatic. EENT: Hearing is intact b/l. Conjunctiva clear. Sclera is anicteric. PERRLA. EOM intact. Moist mucous membranes.? Cardiac: Chest wall symmetric. RRR Lungs: Normal respiratory effort without accessory muscle use. CTA bilaterally. Back: no midline spinous tenderness or step-off deformity. There is right-sided lumbar paraspinal muscle tenderness. No overlying skin changes. No warmth, deformity. Tender to palpation over right cervical paraspinal muscles extending over right trapezius. Full ROM intact to right shoulder and C-spine. No midline cervical spinous tenderness or step off. Ext: Upper and lower extremities atraumatic, without tenderness, deformity, swelling or erythema. Full ROM throughout. Neuro: AOx3. Normal speech. Strength 5/5 intact throughout. No saddle anesthesia. Sensation intact to light touch. NV intact distally. Ambulating with steady gait. Course Course Course Narrative: X-ray lumbar spine without acute fracture. CT head without bleed, CT cervical spine without fracture. likely muscular pain. Patient declining any pain meds at this time. Amenable to Flexeril and naproxen which have been sent to his pharmacy for treatment. Patient has remained stable throughout ED visit today. Discussed worrisome signs and symptoms and when to return to the ED. All questions answered at this time. Patient is agreeable with disposition and stable for discharge. Medical Decision Making Medical Decision Making MDM Narrative: 43 year old male with pmhx significant for arthritis presents to the ED today for evaluation s/p mechanical fall 4 days ago. hypertensive, vitals are otherwise wnl. He is well-appearing and in no acute distress. On exam, there is no midline spinous tenderness or step-off deformity. There is right-sided lumbar paraspinal muscle tenderness. No overlying skin changes. No warmth, deformity. Tender to palpation over right cervical paraspinal muscles extending over right trapezius. Full ROM intact to right shoulder and C-spine. No midline cervical spinous tenderness or step off. Concern for contusion, MSK sprain/strain, fracture, subluxation, disc herniation, sciatica. Unlikely cord compression, cauda equina, Guillain-[place], epidural abscess. Plan for imaging and re-evaluation. Declining pain control at this time. Differential Diagnosis Differential Diagnoses: The differential diagnosis associated with the presentation includes as above Admission/Observation Not indicated. Independent Interpretation I performed an independent interpretation of an: Plain X-Ray and CT Scan Interpretation: CT head without bleed CT cervical spine without fracture X-ray lumbar spine without fracture Radiology Impression Discussion of test interpretation with radiology: I have reviewed the radiologist's reading. Radiologist Impression: Date of Service: 08/19/24 Procedure(s): CT head/brain wo IV con Accession Number(s): [id number] cc: Nahid Rivas MD; Janay Maher~ Report Number: [id number]: Total DLP = 740.00 mGy-cm EXAMINATION: CT HEAD WITHOUT CONTRAST CLINICAL INFORMATION: Fall down stairs COMPARISON: 01/10/2021. TECHNIQUE: Contiguous axial imaging was performed from the skull base to vertex without intravenous administration of contrast. This CT examination was performed using dose optimization techniques as appropriate, variously including the following: *Automated exposure control *Adjustment of mA and/or kV according to patient size (this includes techniques or standardized protocols for targeted exams where dose is matched to indication/reason for exam; i.e. extremities or head) *Use of iterative reconstruction technique FINDINGS: There is no evidence of intracranial hemorrhage or extra-axial fluid collection. There is no mass effect, or edema. No CT evidence of acute territorial infarct. Ventricles, sulci, and cisterns are normal in size and configuration for patient age. No hydrocephalus. No midline shift. Negative hyperdense MCA sign. Negative insular ribbon sign. No significant white matter abnormalities. Normal pituitary. Globes and orbital contents image normally. No extracranial soft tissue abnormalities. Mild to moderate scattered mucosal thickening seen throughout the ethmoid and partially imaged maxillary sinuses. The remainder of the paranasal sinuses, mastoid air cells, and tympanic cavities are normally aerated. No suspicious bony abnormalities. There are no acute fractures evident. CT/CT head/brain wo IV con IMPRESSION: No acute intracranial abnormality. No fracture evident. Electronically signed by: Silvio Marion MD 08/19/2024 10:35 AM EDT RP Date of Service: 08/19/24 Procedure(s): CT cervical spine wo IV con Accession Number(s): [id number] cc: Nahid Rivas MD; Janay Maher~ Report Number: [id number]: Total DLP = 573.00 mGy-cm EXAMINATION: CT CERVICAL SPINE WITHOUT CONTRAST CLINICAL INFORMATION: Fall, neck pain COMPARISON: None available. TECHNIQUE: Spiral CT imaging of the cervical spine performed in axial plane without contrast. Multiplanar reformatted images were constructed from the axial data set. This CT examination was performed using dose optimization techniques as appropriate, variously including the following: *Automated exposure control *Adjustment of mA and/or kV according to patient size (this includes techniques or standardized protocols for targeted exams where dose is matched to indication/reason for exam; i.e. extremities or head) *Use of iterative reconstruction technique FINDINGS: CORONAL ALIGNMENT: -Normal. SAGITTAL ALIGNMENT: -Minimal reversal of the normal lordosis. -No subluxations. C1-C2 AND CRANIOCERVICAL JUNCTION: -Intact and normally aligned. VERTEBRAL BODIES AND FACETS: -No fractures, compression deformities, or suspicious bone lesion. -No evidence of traumatic subluxation. -Normal facet alignment bilaterally. DISCS: -Grossly preserved with only minimal narrowing present. CENTRAL CANAL: -No evidence of high-grade central canal narrowing or large disc herniation allowing for modality limitations. PREVERTEBRAL AND PARAVERTEBRAL SOFT TISSUES: -There is no prevertebral or paravertebral soft tissue swelling or edema present. -Normal thyroid. -No masses or abnormal lymph nodes within the neck. LUNG APICES: -Clear bilaterally. CT/CT cervical spine wo IV con IMPRESSION: 1. No CT evidence of acute cervical spine fracture or injury. Electronically signed by: Silvio Marion MD 08/19/2024 11:19 AM EDT RP Date of Service: 08/19/24 Procedure(s): XR lumbar spine 2-3V Accession Number(s): [id number] cc: Generic ED Physician; Nahid Rivas MD~ EXAMINATION: XR LUMBOSACRAL SPINE CLINICAL INFORMATION: fall, pain COMPARISON: May 11, 2020. TECHNIQUE: AP and lateral views FINDINGS: Multilevel small marginal osteophyte formation and endplate sclerosis pronounced at T11 T12 L4 and L5. No acute cortical disruption or gross malalignment. Spina bifida occulta S1. Spondylolysis pars interarticularis at L5-S1 cannot be entirely excluded. XR/XR lumbar spine 2-3V IMPRESSION: Multilevel thoracolumbar spondylosis without acute fracture or trauma-related listhesis. Electronically signed by: Saeed Patrick MD 08/19/2024 09:06 AM EDT RP External Record Review External record reviewed: Inpatient record Prescription Management I considered prescription management with: Pain Medication and Other (Muscle relaxer) Social Determinants Patient?s care significantly limited by Social Determinants of Health including: Other Social Determinant of Health Critical Care Time Critical Care Time Critical Care Time: No Discharge Plan Discharge Clinical Impression: Lumbar spine strain, Fall Patient Disposition: Home, Self-Care Instructions: Low Back Strain (ED) Additional Instructions: You were evaluated in the Emergency Department following a fall. Your evaluation did not show signs of medical conditions requiring emergent intervention at this time. The x-rays of your low back and CT scans of your neck and head are normal. Avoid bending, lifting, or twisting. Use ice several times per day for 20 minutes at a time for the next 48 hours and then change to heat. I recommend you take 600mg ibuprofen every 6 hours or Tylenol 650mg every 6 hours as needed for pain. If needed, you can alternate these medications so that you take one medication every 3 hours. For example, at noon take ibuprofen, then at 3pm take tylenol, then at 6pm take ibuprofen. Flexeril is a muscle relaxer. Take this at night as it makes you drowsy. Do not drive, drink alcohol, or operate machinery while taking it. Naproxen as an anti-inflammatory that has been sent to your pharmacy for treatment. Do not take this with other NSAIDs such as Motrin/ibuprofen as this can cause increased risk of Gi bleeding. Please schedule an appointment for follow-up with your primary care provider this week for further evaluation of your symptoms. Return to the Emergency Department if you experience worsening back pain, difficulty walking, fevers, numbness, tingling, incontinence, or any other concerning symptoms. In the case of an emergency call 911. Prescriptions: New cyclobenzaprine 5 mg tablet 5 mg PO Q8H PRN (Reason: muscle spasm) 3 Days Qty: 9 0RF naproxen 500 mg tablet 500 mg PO Q12H PRN (Reason: pain (scale score 1-3)) Qty: 20 0RF Referrals: Nahid Rivas MD [Primary Care Provider, Internal Medicine] Interventions: ED Discharge Assessment Last Done: 08/19/24 11:56 Discharge Date/Time: 08/19/24 12:06 Print Language: Occitan
[2024-08-19 11:56] VITALS: BP 138/75; PULSE 65; RESP 18; TEMP 36.8; O2SAT 95
== END 2024-08-19 12:06 | disposition home or self-care (01) ==
PROVIDERS: Emergency Provider Emergency Medicine; PCP Internal Medicine
DX: S39.012A Strain of muscle, fascia and tendon of lower back, initial encounter (principal); W10.9XXA Fall (on) (from) unspecified stairs and steps, initial encounter; Y93.89 Activity, other specified; Y92.9 Unspecified place or not applicable; Y99.9 Unspecified external cause status; M54.2 Cervicalgia
CPT/HCPCS: 70450; 72100; 72125; 99283; 99284

== ENCOUNTER → 2024-08-19 08:40 | Outpatient (BNV) | payer OTHER, SELFPAY | PROVIDERS: Emergency Provider Emergency Medicine; PCP Internal Medicine; Visit Provider Radiology Diagnostic Radiology | DX: M54.2 Cervicalgia (principal); M54.50 Low back pain, unspecified; W10.9XXA Fall (on) (from) unspecified stairs and steps, initial encounter | CPT/HCPCS: 70450; 72100; 72125 ==